=== PATIENT | male | born 1965 | race Caucasian/White ===

== ENCOUNTER → 2018-01-24 10:22 | Outpatient (CLI) | payer OTHER, SELFPAY ==
--- NOTE | 2018-01-24 10:26 | RAD_ITS ---
STUDY: X-RAY - ABDOMEN/PELVIS REASON FOR EXAM: Male, 52 years old. Abdominal pain. Hematuria. TECHNIQUE: AP supine and upright views of the abdomen and pelvis. COMPARISON: Comparison is made with prior study dated June 08, 2014. FINDINGS: Normal visualized lung bases. There is a moderate amount of colonic fecal material. There is no demonstrated free abdominal air. There is a 5.6 mm calculus in the midportion of the right kidney. There is also evidence of a 9.3 mm calculus in the lower pole calyx of the left kidney. Normal soft tissue structures. Normal visualized osseous structures. RAD/Abd Inc Decub and/or Erect IMPRESSION: Bilateral intrarenal calculi. Electronically Signed: Edy Payne MD at 10:57 EDT Tel [phone], Service support ,
--- NOTE | 2018-01-24 15:04 | EKG12_ITS ---
Test Reason : PRE OP Blood Pressure : / mmHG Vent. Rate : 075 BPM Atrial Rate : 075 BPM P-R Int : 122 ms QRS Dur : 102 ms QT Int : 370 ms P-R-T Axes : 059 050 031 degrees QTc Int : 413 ms Normal sinus rhythm with sinus arrhythmia ST abnormality, possible digitalis effect Abnormal ECG Confirmed by GISELE SCALES, OVIDIO ([id number]), editor school photograph SHERRELL MATTHEW ([id number]) on 01/28/2018 3:48:42 PM Referred By: Jeramy Matthew Confirmed By:OVIDIO JAQUEZ MD
[2018-01-24 15:19] LABS: Hematocrit 47.8 % (40-54); Hemoglobin 15.8 g/dl (13.0-16.5); Mean Corp Hgb Conc 33.1 g/gl (32-36); Mean Corpuscular Hgb 29.1 pg (27.0-32.0); Mean Platelet Vol. 11.3 fl (6.2-12.0); Platelet Count 203 K/mm3 (150-450); RBC Distribution Width CV 13.8 % (11.6-14.6); Red Blood Count 5.43 M/mm3 (4.6-6.2); White Blood Count 4.4 K/mm3 (4.4-11.0)
[2018-01-24 15:21] LABS: Scan Indicated on CBC? Y/N NO
[2018-01-24 15:47] LABS: Anion Gap 7 (5-15); BUN 14 mg/dL (7-18); BUN/Creat Ratio 17.5 RATIO (10-20); Calcium,Total 8.6 mg/dL (8.5-10.1); Chloride 108 mmol/L (98-107); EST Glomerular Filtration Rate 107 mL/min (>60); Est Glom Filt Rate - Afr Amer 130 mL/min (>60); Glucose 103 mg/dL (74-106); Potassium 3.7 mmol/L (3.5-5.1); Sodium Level 140 mmol/L (136-145)
== END ==
PROVIDERS: Family Provider Family Medicine; PCP Family Medicine; Visit Provider Family Medicine
DX: N20.1 Calculus of ureter (principal)
CPT/HCPCS: 36415; 74019; 80048; 85027; 93005

== ENCOUNTER 2018-02-15 11:55 | Day surgery (SDC) | payer OTHER, SELFPAY ==
--- NOTE | 2018-02-15 12:20 | RAD_ITS ---
STUDY: X-RAY - ABDOMEN/PELVIS REASON FOR EXAM: Male, 52 years old. Flank pain TECHNIQUE: Single AP view of the abdomen / pelvis. COMPARISON: 01/24/2018 FINDINGS: Stable calcifications overlying either renal shadow, left again measures approximately 7 mm, right 1 cm. There is an unremarkable bowel gas pattern. There is no demonstrated free abdominal air. The visualized liver, spleen and kidneys are grossly normal in size and morphology. Normal soft tissue structures. Normal visualized osseous structures. RAD/Abdomen Single View IMPRESSION: No acute findings, stable nephrolithiasis Electronically Signed: Archie Godoy MD at 13:15 EDT , Service support ,
[2018-02-15 12:41] VITALS: BP 129/77; PULSE 70; RESP 16; TEMP 36.4; O2SAT 98; BMI 21.5
[2018-02-15] MEDS: Cefazolin 2 GM in 0.9% Normal Saline 100 ML IV (13:58)
[2018-02-15 15:22] VITALS: BP 129/77; BP 137/98; PULSE 90; RESP 14; TEMP 36.1; O2SAT 93
--- NOTE | 2018-02-15 15:22 | PCM.OPRPT ---
Report of Operation Date of Procedure: 02/15/18 Pre-Operative Diagnosis: Bilateral renal calculi Post-Operative Diagnosis: Same Surgery/Procedure Performed:: Right extracorporeal shockwave lithotripsy, left extracorporeal shockwave lithotripsy Description of Surgical Findings:: 52-year-old male who has bilateral kidney stones and found on x-ray today he comes in for treatment for both of these kidney stones with shockwave lithotripsy we decided not to place a stent since the stones are fairly small and anticipating to break up really well. Procedure note patient was taken back to the operating room at the smooth induction of general anesthesia he was placed supine on the table we then started with the left kidney and located the stone in the midpole the left kidney we delivered a total of 2000 shockwaves to the stone and the stone broke up with the little tiny pieces no more visible fragments are seen at the end of treatment cycle, we then turned our attention to the right kidney found a stone in the right kidney midportion of the right kidney is about 8 mm in size delivered a total of 3000 shockwaves to the stone again the stone broke up really well and fractured really nicely after treatment cycle. After treating both the kidney stones patient anesthetic was reversed taken back to PACU in good condition plan to see him back in a few weeks with a KUB. Type of Anesthesia:: General - Admit VTE Documentation VTE Present on Admission: No VTE Mechan Device Prophylaxis: SCD's
[2018-02-15 15:30] VITALS: BP 129/77; BP 130/97; PULSE 88; RESP 16; O2SAT 94
--- NOTE | 2018-02-15 15:30 | PCM.DC.URO ---
Discharge Diet: Light diet - advance as tolerated Discharge Activity: Return to Normal Activity Allergies/Adverse Reactions: Allergies Sulfa (Sulfonamide Antibiotics) Allergy (Verified 02/11/18 14:28) Unknown Medications to take at Discharge Methylphenidate HCl [Concerta] 72 mg PO DAILY 04/16/14 Cholecalciferol (VIT D3) [Vitamin D] 1,000 unit PO DAILY 02/11/18 Hydrocodone/Acetaminophen [Imperial 5-325 Tablet] 1 ea PO Q4H PRN PRN 7 Days #20 tab 02/15/18 The following prescriptions were given: Hydrocodone/Acetaminophen [Imperial 5-325 Tablet] 1 ea PO Q4H PRN PRN 7 Days #20 tab PRN Reason: Pain Primary Care Physician: Sven Mar MD [Primary Care Provider] - Test Results: Test results from this visit will be discussed in further detail at your follow-up appointment, if applicable. Please Follow Up With: Chino Walter MD When: in 2 weeks, please call to make an appointment.
[2018-02-15 15:45] VITALS: BP 125/89; BP 129/77; PULSE 72; RESP 16; O2SAT 98
[2018-02-15 16:02] VITALS: BP 128/89; BP 129/77; PULSE 66; RESP 16; TEMP 36.4; O2SAT 96
--- NOTE | 2018-02-15 16:12 | SUR.PHASEII ---
duplicate prescription for norco destroyed. witness by Sharon WILBURN and Amie WILBURN.
[2018-02-15 16:37] VITALS: BP 129/77
== END 2018-02-15 16:42 | disposition home or self-care (01) ==
LOC: SDC 11:55 → AC 12:17
PROVIDERS: Family Provider Family Medicine; PCP Family Medicine; Visit Provider Urology
PROC: (CPT 50590; principal; 2018-02-15 13:55)
DX: N20.0 Calculus of kidney (principal); F90.9 Attention-deficit hyperactivity disorder, unspecified type; Z87.442 Personal history of urinary calculi
CPT/HCPCS: 50590; 74018; J7120; J2405

== ENCOUNTER → 2018-02-28 07:00 | Outpatient (CLI) | payer OTHER, SELFPAY ==
[2018-02-28 10:30] LABS: Anion Gap 10 (5-15); BUN 14 mg/dL (7-18); Calcium,Total 8.6 mg/dL (8.5-10.1); Chloride 106 mmol/L (98-107); Cholesterol 169 mg/dL (200); Creatinine, Serum 0.94 mg/dL (0.70-1.30); EST Glomerular Filtration Rate 90 mL/min (>60); Est Glom Filt Rate - Afr Amer 108 mL/min (>60); Glucose 92 mg/dL (74-106); High Density Lipoprotein 43 mg/dL; Potassium 3.8 mmol/L (3.5-5.1); Sodium Level 143 mmol/L (136-145); Triglycerides 36 mg/dL; Very Low Density Lipoprotein 7 mg/dL (5-40)
[2018-03-01 08:54] LABS: Vitamin D,25 Hydroxy 47.1 ng/mL (29.95-100.01)
== END ==
PROVIDERS: Family Provider Family Medicine; PCP Family Medicine; Visit Provider Family Medicine
DX: Z13.220 Encounter for screening for lipoid disorders (principal); E55.9 Vitamin D deficiency, unspecified; Z13.1 Encounter for screening for diabetes mellitus
CPT/HCPCS: 36415; 80048; 80061; 82306

== ENCOUNTER → 2018-03-05 15:01 | Outpatient (CLI) | payer OTHER, SELFPAY | PROVIDERS: Family Provider Family Medicine; PCP Family Medicine; Visit Provider Urology | DX: N20.0 Calculus of kidney (principal) | CPT/HCPCS: 74018 ==

== ENCOUNTER → 2019-06-17 16:06 | Outpatient (CLI) | payer OTHER, SELFPAY ==
--- NOTE | 2019-06-17 16:11 | RAD_ITS ---
STUDY: X-RAY - ABDOMEN/PELVIS REASON FOR EXAM: Male, 53 years old. Right-sided flank pain TECHNIQUE: Single AP view of the abdomen / pelvis. COMPARISON: 03/05/2018 FINDINGS: There is an unremarkable bowel gas pattern. There is no demonstrated free abdominal air. The visualized liver, spleen and kidneys are grossly normal in size and morphology. Multiple small right renal calculi, the largest measuring 4 mm. No ureter calculi are seen. Normal soft tissue structures. Normal visualized osseous structures. RAD/Abdomen Single View IMPRESSION: Multiple small right renal calculi, the largest measuring 4 mm. No ureter calculi are seen. Electronically Signed: Sae Lazar MD at 4:04 EST Tel , Service support ,
== END ==
PROVIDERS: Family Provider Family Medicine; PCP Family Medicine; Referring Provider Urology; Visit Provider Urology
DX: R10.9 Unspecified abdominal pain (principal)
CPT/HCPCS: 74018

== ENCOUNTER → 2020-07-06 08:03 | Outpatient (CLI) | payer OTHER, SELFPAY ==
[2020-07-06 10:16] LABS: Vitamin D,25 Hydroxy 32.5 ng/mL
[2020-07-06 10:17] LABS: Anion Gap 6 (5-15); BUN 18 mg/dL (7-18); Calcium,Total 8.9 mg/dL (8.5-10.1); Chloride 106 mmol/L (98-107); Cholesterol 201 mg/dL (200); EST Glomerular Filtration Rate 82 mL/min (>60); Est Glom Filt Rate - Afr Amer 100 mL/min (>60); Glucose 98 mg/dL (74-106); High Density Lipoprotein 53 mg/dL; PSA,Total - Annual Screen 1.99 ng/mL (0.00-4.00); Sodium Level 141 mmol/L (136-145); Triglycerides 40 mg/dL; Very Low Density Lipoprotein 8 mg/dL (5-40)
== END ==
PROVIDERS: PCP Family Medicine; Referring Provider Family Medicine; Visit Provider Family Medicine
DX: E55.9 Vitamin D deficiency, unspecified (principal); Z12.5 Encounter for screening for malignant neoplasm of prostate; Z13.220 Encounter for screening for lipoid disorders; Z13.1 Encounter for screening for diabetes mellitus
CPT/HCPCS: 36415; 80048; 80061; 82306; 84153; G0103

== ENCOUNTER → 2021-03-29 19:00 | Outpatient (CLI) | payer OTHER, SELFPAY ==
[2021-03-31 20:08] LABS: Covid Inpatient test code BILL Performed (.)
== END ==
PROVIDERS: PCP Family Medicine; Visit Provider Family Medicine
DX: U07.1 COVID-19 (principal)
CPT/HCPCS: 87635; U0005; U0003

== ENCOUNTER → 2021-06-01 07:19 | Outpatient (CLI) | payer OTHER, SELFPAY ==
[2021-06-01 10:46] LABS: Vitamin D,25 Hydroxy 40.3 ng/mL
[2021-06-01 11:06] LABS: Anion Gap 6 (5-15); BUN 16 mg/dL (7-18); BUN/Creat Ratio 16.2 RATIO (10-20); Calcium,Total 8.6 mg/dL (8.5-10.1); Chloride 109 mmol/L (98-107); Cholesterol 181 mg/dL (200); Creatinine, Serum 0.99 mg/dL (0.70-1.30); EST Glomerular Filtration Rate 83 mL/min (>60); Est Glom Filt Rate - Afr Amer 101 mL/min (>60); Glucose 98 mg/dL (74-106); High Density Lipoprotein 44 mg/dL; Sodium Level 140 mmol/L (136-145); Triglycerides 52 mg/dL; Very Low Density Lipoprotein 10 mg/dL (5-40)
== END ==
PROVIDERS: PCP Family Medicine; Referring Provider Family Medicine; Visit Provider Family Medicine
DX: Z13.1 Encounter for screening for diabetes mellitus (principal); E55.9 Vitamin D deficiency, unspecified; Z13.220 Encounter for screening for lipoid disorders
CPT/HCPCS: 36415; 80048; 80061; 82306; 84153; G0103

== ENCOUNTER 2021-11-09 07:02 | Inpatient (IN) | payer OTHER, SELFPAY ==
--- NOTE | 2021-11-04 15:12 | EKG12_ITS ---
Test Reason : PREOP Blood Pressure : / mmHG Vent. Rate : 094 BPM Atrial Rate : 094 BPM P-R Int : 124 ms QRS Dur : 088 ms QT Int : 342 ms P-R-T Axes : 057 034 036 degrees QTc Int : 427 ms Normal sinus rhythm Nonspecific ST abnormality Abnormal ECG Confirmed by KACIE SCALES, KAMRAN ([id number]), primer expeditor and drier MATT TOLBERT ([id number]) on 11/07/2021 1:44:56 PM Referred By: YOLANDA Confirmed By:ALYSSA HESTER MD
[2021-11-09] VITALS (10 sets, daily range): BP systolic 105–131; BP diastolic 63–85; PULSE 70–100; RESP 12–16; TEMP 36.2–36.9; O2SAT 93–99; BMI 22.9
--- NOTE | 2021-11-09 07:34 | HP.PCM_ITS ---
History and Physical Date of Admission: 11/09/21 Intake Vital Signs 11/01/21 12:48 Height 5 ft 8 in Weight: 156 lb BMI 23.7 BP 129/87 H Blood Pressure Location Rt brachial Position Sitting Respiration 18 Pulse 64 Pulse Source NIBP Temp 97.6 F L Temp Source Temporal Pulse Oximetry (%) 99 Oxygen Delivery Method room air Intake Visit Reasons: Discuss Surgical Procedure C-Scope? Chief Complaint: discuss colectomy Market Research Associate Required: No Is patient in pain?: No Allergies Sulfa (Sulfonamide Antibiotics) Allergy (Verified 11/01/21 12:50) Unknown Medications methylphenidate HCl [Concerta] 72 mg PO DAILY 04/16/14 [History Confirmed 11/01/21] cholecalciferol (vitamin D3) [Vitamin D] 1,000 unit PO DAILY 02/11/18 [History Confirmed 11/01/21] bupropion HCl 150 mg 24 hr tablet, extended release 150 mg PO tab 11/01/21 [History Confirmed 11/01/21] metronidazole 500 mg tablet 500 mg PO .COMPLEX #3 tab 11/01/21 [Rx Confirmed 11/01/21] neomycin 500 mg tablet 1 g PO .COMPLEX #6 tab 11/01/21 [Rx Confirmed 11/01/21] PFSH Medical History (Updated 11/03/21 @ 09:[address] Everett Jason MD) Anxiety Colon polyp Depression Hemorrhoids Stone, kidney Surgical History S/P appendectomy S/P tonsillectomy Family History Mother Diabetes Cancer skin Father Diabetes Thyroid disorder Social History Smoking Status: Never smoker alcohol intake: current HPI HPI HPI: MICHELA ZEPEDA, is a 56 M who presents to the office today for large polyp and need for colectomy. Patient had a large polyp removed during colonoscopy in the ascending colon which was found to be a tubular adenoma with high-grade dysplasia. It was very large and unable to be removed completely and the area was ablated but this is the second time this area is growing a large polyp and he was sent for right hemicolectomy. ROS General General: No weight change, appetite, fatigue, colon cancer, breast cancer or weakness HEENT HEENT: No difficulty swallowing, eye injury, eye surgery, swollen glands or hoarseness Endo Endocrine: No thyroid disease, diabetes mellitus, thyroid cancer, Hair loss, heat intolerance or cold intolerance Skin Skin: No rash or changing moles Breast Breast: No left breast lump, right breast lump, nipple discharge, breast pain, abnormal mammogram, abnormal US or breast enlargement Musc Musculoskeletal: No back problems, arthritis, rheumatoid arthritis, gout or joint pain Cardio Cardiovascular: No murmur, pacemaker, heart disease, atrial fibrillation, high blood pressure, heart attack, heart stent, palpitations, shortness of breat with exertion or chest pain Psych Psychiatric: Yes depression and anxiety; No hearing voices Resp Respiratory: No shortness of breath, No sleep apnea, No cough, No COPD, No asthma, No emphysema and No wheezing Gastro Gastrointestinal: No abdominal pain, No nausea or vomiting, No diarrhea, No constipation, No blood in stool, No acid reflux, Yes hemorrhoids, No ulcers, No gallbladder problem and No black,tarry stools Hernán Hematologic: No blood thinners, No blood disorders, No bleeding, No anemia and No blood clots Neuro Neurologic: No system reviewed and no additional complaints, except as documented, No as per HPI, No abnormal gait, No abnormal hearing, No abnormal movements, No abnormal speech, No behavioral changes, No burning sensations, No confusion, No convulsions, No disequilibrium, No dizziness, No localized weakness, No frequent falls, No headache(s), No lack of coordination, No loss of vision, No memory loss, No numbness, No other visual disturbances, No radicular pain, No restless legs, No sensory deficit, No syncope, No tingling, No tremor(s), No weakness and No other Exam Const General: cooperative Orientation: alert and oriented x3 HENMT Head: normal to inspection Neck Neck: normal visual inspection and full ROM Chest Chest palpation & inspection: normal inspection of the chest Resp Effort & Inspection: normal respiratory effort Auscultation: clear to auscultation bilaterally Cardio Rate: regular rate Rhythm: regular rhythm GI Inspection: non-distended Palpation: soft and nontender Skin General: no rashes or lesions noted Neuro General: patient alert and patient oriented x3 Extrem General: full ROM Psych Appearance: grossly normal Mental Status: mental status grossly normal Assessment and Plan Assessment and Plan (1) High grade dysplasia in colonic adenoma: Status: Acute Plan - Dr. Everett Jason MD: Patient had a large ascending colon polyp with high-grade dysplasia. This was piecemeal removed and ablated but he was sent for right hemicolectomy as this is the second time this has recurred in the same area of colon. Patient is agreeable to right hemicolectomy. I discussed laparoscopic right hemicolectomy in detail with the patient. I discussed the risks including but not limited to bleeding, infection, anastomotic leak, injury to surrounding organs. I discussed possible injury to bladder or ureter. Patient understands the risks and is willing to proceed. Everett Jason MD Pager: [facility] [address] [place] [address] [address] [place] [address] Office: I have re-examined the patient. There are no clinical changes since date of exam.
[2021-11-09] MEDS: Gabapentin 600 MG Tablet PO (07:45)
[2021-11-09] MEDS: Acetaminophen 500 MG Tablet 1000 MG PO ×3 (07:45→23:26)
[2021-11-09] MEDS: Lactated Ringers 1,000 ML 40 ML IV ×2 (07:47→17:07)
[2021-11-09 08:10] LABS: Bedside Glucose 170 mg/dL (74-106)
--- NOTE | 2021-11-09 09:35 | COL._PTH ---
PATIENT: MICHELA ZEPEDA LOC: MS3 U#:[id number] AGE/SX: 56/M ROOM: NV312 RE11/09/[address]: Dr. Everett Jason MD : [id number] BED: 1 DIS: 11/11/2021 SPEC #: [id number] RECD: 11/09/21 13:50 STATUS: AIDA DUPREE #: [id number] NONI: 11/09/21 09:[address]: Everett Jason DEPT: SURGICAL PATHOLOGY RECD BY: Soraya Sommer ENTERED: 11/10/21 08:27 SP TYPE: COLON OTHR DR: Dr. 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 Diverticulosis. 26 benign lymph nodes with reactive changes. See comment. SJ:rg 11/14/2021 COMMENT High-grade dysplasia is not identified. Intermediate sized segment consists of small bowel and smallest segment consists of large bowel. MICROSCOPIC DESCRIPTION Slides are reviewed. GROSS DESCRIPTION Received in fixative is one container labeled with the patient's name and designated right colon. The specimen consists of three segments of bowel. The smallest segment measures 4 cm in length. The second largest segment measures 11 cm in length. The largest segment consists of right hemicolectomy specimen. The segment of large bowel measures 19 cm and segment of attached terminal ileum measures 6 cm. An appendix is not present. Located 4 cm distal to the ileocecal valve are shallow mucosal ulcers ranging in size from 0.5 to 1 cm. No mass lesion is identified in the small bowel, ileocecal valve or cecum. Located approximately 12 cm distal to the ileocecal valve are similar shallow ulcers ranging in size from 0.3 to 0.8 cm. The remainder of the bowel mucosa is thrown into normal folds. No mass lesions are identified. Serial sections reveal multiple diverticula, none of which appear to have perforated through the bowel. The mucosal surfaces and the other two smaller segments of bowel are grossly unremarkable with no mass lesions. The attached fibrofatty tissue contains a number of grossly unremarkable nodule resembling lymph nodes. Rehanger sections are submitted as follows: 1??automobile rental representative portion of smallest segment of bowel, 2 & 3 - automobile rental representative sections from second largest segment of bowel, 4 - proximal and distal mucosal margin from largest segment of bowel, 5?&?6??shallow mucosal ulcer from cecum, 7 - shallow mucosal ulcers distal to cecum, 8 & 9 - diverticula, 10-15 - lymph nodes (10-14 - each cassette containing multiple lymph nodes, 15 - one bisected lymph node). / AM:pilo 11/11/2021 TC:1 CPT: 78595
[2021-11-09] MEDS: BUPIVACAINE LIPOSOME/PF 20 ML VIAL OPERA.SITE (12:49)
--- NOTE | 2021-11-09 13:22 | PCM.OPRPT ---
Problems Associated Problem List Diagnoses (1) High grade dysplasia in colonic adenoma: Report of Operation Date of Procedure: 11/09/21 Pre-Operative Diagnosis: Colon polyp of the cecum with high-grade dysplasia Post-Operative Diagnosis: Same Surgery/Procedure Performed:: Laparoscopic right hemicolectomy with ileocolic anastomosis Specimen's removed: Right hemicolon Description of Procedure: Patient was brought back the operating room and general anesthesia was induced. The abdomen was prepped and draped in usual sterile fashion. A midline incision was made superior to the umbilicus and deepened to the fascia which was elevated and incised. Port was placed into the abdomen and it was insufflated 15 mmHg. Under direct visualization a 5 mm port was placed in the left lower quadrant and left upper quadrant. Next under direct visualization a TAP block was performed bilaterally. There were very numerous dense adhesions in the right lower quadrant and pelvis containing most of the small bowel. These were taken down sharply and it took a very long time to divide all of the adhesions in the pelvis. Next the colon was medialized and the lateral attachments were taken down using Enseal. Once the colon was mobile and of small bowel was mobilized the incision was lengthened in the upper midline. A wound protector was placed. The small bowel and cecum were delivered into the incision. The hepatic flexure was then taken down using Enseal. Next an area of transverse colon was selected and divided using ESCOBAR stapler. Enseal was used to take down the mesentery until the right colon pedicle was identified. The right colic artery was then suture-ligated as well as the ileocolic artery. Next the small bowel was divided using ESCOBAR stapler and the specimen was sent for pathology. There was a small defect in the mesentery so an additional small segment of small bowel was removed. Next using a ESCOBAR stapler and ileocolic anastomosis was formed in a [id number] functional end-to-end fashion. Next the stapler was removed and a TX 60 stapler was used to close the common enterotomy. A crotch suture of 3-0 silk was placed and then the anastomosis was inspected once more. There is good hemostasis at the pedicle and at the anastomosis. This was returned to the abdomen and the abdomen was irrigated and suctioned dry. The wound protector was removed. Gown gloves and all staff were changed. Next the fascia was closed with running #1 PDS from the top and bottom meeting in the middle. The skin was injected with local anesthetic and closed with 4-0 Monocryl. The small port incisions were also injected with local anesthetic and closed with 4-0 Monocryl. Bandages and Steri-Strips were applied. Patient was then awoken and taken to PACU in stable condition. Admit VTE Documentation VTE Mechan Device Prophylaxis: SCD's
[2021-11-09] MEDS: Docusate Sodium 100 MG Capsule PO (22:21)
[2021-11-10 02:41] VITALS: BP 109/66; PULSE 90; RESP 18; TEMP 37.2; O2SAT 100
[2021-11-10 05:22] LABS: Hematocrit 43.3 % (40-54); Hemoglobin 14.3 g/dL (13.0-16.5); Mean Corpuscular Hgb 29.4 pg (27.0-32.0); Mean Corpuscular Volume 89.1 fL (80-94); Mean Platelet Vol. 11.1 fl (6.2-12.0); Platelet Count 183 K/mm3 (150-450); RBC Distribution Width CV 13.2 % (11.6-14.6); RBC Distribution Width SD 43.2 fl (35.1-43.9); Red Blood Count 4.86 M/mm3 (4.6-6.2); White Blood Count 9.3 K/mm3 (4.4-11.0)
[2021-11-10 05:35] VITALS: BP 108/62; PULSE 73; RESP 16; TEMP 37.2; O2SAT 94
[2021-11-10] MEDS: Acetaminophen 500 MG Tablet 1000 MG PO ×4 (05:37→23:04)
[2021-11-10 05:38] LABS: Anion Gap 4 (5-15); BUN 12 mg/dL (7-18); BUN/Creat Ratio 12.7 RATIO (10-20); Calcium,Total 7.7 mg/dL (8.5-10.1); Chloride 107 mmol/L (98-107); Creatinine, Serum 0.94 mg/dL (0.70-1.30); EST Glomerular Filtration Rate 87 mL/min (>60); Est Glom Filt Rate - Afr Amer 106 mL/min (>60); Estimated Creatinine Clearance 83.88 ml/min; Glucose 124 mg/dL (74-106); Potassium 4.6 mmol/L (3.5-5.1); Sodium Level 138 mmol/L (136-145)
[2021-11-10 07:24] VITALS: O2SAT 92
--- NOTE | 2021-11-10 07:32 | PCM.PN.SRG ---
Subjective Subjective Patient is not reporting any flatus yet. He is not having any nausea or vomiting. Abdominal pain is well controlled. Objective Data Objective Data Vital Signs: Vital Signs Temp Pulse Resp BP Pulse Ox 99 F 73 16 108/62 94 11/10/21 05:35 11/10/21 05:35 11/10/21 05:35 11/10/21 05:35 11/10/21 05:35 Oxygen Flow Rate (L/min) 2 Oxygen Delivery Method Room Air Weight: 151 lb Body Mass Index (BMI) 22.9 Intake & Output: Intake and Output for Last 24 Hours 11/08/21 11/09/21 11/10/21 23:59 23:59 23:59 Intake Total 1752.67 / 1752.67 100 / 100 Output Total 250 / 250 400 / 400 Balance 1502.67 / 1502.67 -300 / -300 Lab / Micro Data Result Diagrams: 11/10/21 05:14 11/10/21 05:14 Labs: Laboratory Results - last 24 hr 11/09/21 07:57: POC Glucose 170 H 11/10/21 05:14: WBC 9.3, RBC 4.86, Hgb 14.3, Hct 43.3, MCV 89.1, MCH 29.4, MCHC 33.0, RDW Std Deviation 43.2, RDW Coeff of Denzel 13.2, Plt Count 183, MPV 11.1 11/10/21 05:14: Sodium 138, Potassium 4.6, Chloride 107, Carbon Dioxide 27.0, Anion Gap 4 L, BUN 12, Creatinine 0.94, Estim Creat Clear Calc 83.88, Est GFR (MDRD) Af Amer 106, Est GFR (MDRD) Non-Af 87, BUN/Creatinine Ratio 12.7, Glucose 124 H, Calcium 7.7 L Physical Exam Const oriented x3 and no apparent distress Resp normal respiratory effort GI soft to palpation and non-tender Assessment & Plan Assessment/Plan (1) High grade dysplasia in colonic adenoma: PLAN: Patient doing well after right hemicolectomy. There is more extensive lysis of adhesions than expected so I kept him n.p.o. yesterday. I will start some clear liquids today but hold on advancing his diet until he is passing flatus. Everett Jason MD Pager: [facility] [address] [place] [address], [address] [place] [address] Office:
[2021-11-10] MEDS: Enoxaparin 40 MG/0.4 ML Syringe SC (08:09)
[2021-11-10] MEDS: Docusate Sodium 100 MG Capsule PO ×2 (08:09→21:06)
[2021-11-10] MEDS: buPROPion (XL) 150 MG TABLET.XL PO (08:10)
[2021-11-10] MEDS: Ketorolac 15 MG/ML Vial IV (08:14)
[2021-11-10 08:20] VITALS: BP 111/65; PULSE 66; RESP 16; TEMP 36.6; O2SAT 94
--- NOTE | 2021-11-10 10:25 | CASEMGMT ---
RN JOSE M Face to Face with patient for initial transition planning/care coordination assessment. RN CM introduced self and role at [facility]. Patient sitting in chair, alert and oriented. Patient willing to participate in assessment and is able to answer all questions appropriately. Care providers, pharmacy, and demographics verified. Patient wishes to discharge home, denies need for home health at this time. Patient states he has no further needs or concerns at this time. CM to follow for discharge planning needs that may arise. PCP: Zaid Specialists: none Preferred Pharmacy: [facility] retail Insurance: MMO Prescription Benefit: yes Living Will/HPOA: none LNOK: father Living Arrangements: Patient lives alone in a 2 story home. Patient states he is independent and able to ambulate stairs. Transportation: self, father DME/HHC: Patient denies DME or previous HHC. Disposition Plan: Patient to discharge home with family support and follow-up plans in place. Shereen CADENA, RN, CM
[2021-11-10] MEDS: Ensure Clear 120 ML Liquid PO (15:00)
[2021-11-10 15:05] VITALS: BP 122/68; PULSE 89; RESP 16; TEMP 36.7; O2SAT 95
[2021-11-10 20:32] VITALS: BP 123/87; PULSE 74; RESP 16; TEMP 36.9; O2SAT 95
[2021-11-10] MEDS: Ondansetron ODT 4 MG Tablet PO (21:05)
[2021-11-11 02:20] VITALS: BP 144/78; PULSE 80; RESP 16; TEMP 37; O2SAT 95
[2021-11-11] MEDS: Acetaminophen 500 MG Tablet 1000 MG PO (05:29)
[2021-11-11 07:12] VITALS: O2SAT 92
[2021-11-11 08:20] VITALS: BP 131/84; PULSE 75; RESP 14; TEMP 36.7; O2SAT 94
[2021-11-11] MEDS: Docusate Sodium 100 MG Capsule PO (09:41)
[2021-11-11] MEDS: Enoxaparin 40 MG/0.4 ML Syringe SC (09:41)
[2021-11-11] MEDS: buPROPion (XL) 150 MG TABLET.XL PO (09:41)
--- NOTE | 2021-11-11 10:59 | PCM.PN.SRG ---
Subjective Subjective Patient is doing well. He reports passing flatus and having a bowel movement. No nausea or vomiting and he did tolerate clears. Objective Data Objective Data Vital Signs: Vital Signs Temp Pulse Resp BP Pulse Ox 98.0 F 75 14 131/84 H 94 11/11/21 08:20 11/11/21 08:20 11/11/21 08:20 11/11/21 08:20 11/11/21 08:20 Oxygen Flow Rate (L/min) 2 Oxygen Delivery Method Room Air Weight: 150 lb 15.984 oz Body Mass Index (BMI) 22.9 Intake & Output: Intake and Output for Last 24 Hours 11/09/21 11/10/21 11/11/21 23:59 23:59 23:59 Intake Total 1752.67 / 1752.67 2174 / 2174 Output Total 250 / 250 1999 / 1999 Balance 1502.67 / 1502.67 174 / 174 Lab / Micro Data Result Diagrams: 11/10/21 05:14 11/10/21 05:14 Physical Exam Const no apparent distress Resp normal respiratory effort Cardio regular rate GI soft to palpation and non-tender Assessment & Plan Assessment/Plan (1) High grade dysplasia in colonic adenoma: PLAN: Advance diet and discharge later today.
--- NOTE | 2021-11-11 11:00 | PCM.DC.SUM ---
Providers Date of Admission: 11/09/21 Primary Care Physician: Dr. Sven Mar MD Reason For Visit: ERAS, RT LAP CHERYLE COLECTOMY Diagnosis Discharge Diagnosis (1) High grade dysplasia in colonic adenoma: Status: Acute Code(s): D12.6 - Benign neoplasm of colon, unspecified Medications at Discharge Home Medications methylphenidate HCl [Concerta] 72 mg PO DAILY 04/16/14 cholecalciferol (vitamin D3) [Vitamin D3] 1,000 unit PO DAILY 02/11/18 bupropion HCl 150 mg 24 hr tablet, extended release 150 mg PO DAILY tab 11/01/21 acetaminophen 650 mg PO Q6 PRN #0 tab 11/11/21 ibuprofen 600 mg PO Q6H PRN PRN #0 tab 11/11/21 Hospital Course Operations colectomy Procedures None Summary of Care Provided Hospital Course: Patient was admitted following elective right hemicolectomy for dysplastic colon polyp. The first postoperative day the patient was started on a clear liquid diet and was not passing flatus. The second postoperative day started passed flatus and he was advanced on his diet and then discharged home in stable condition. Weight / BMI Weight Weight: 150 lb 15.984 oz Body Mass Index (BMI) 22.9 ABG / Lab / Microbiology Data Result Diagrams: 11/10/21 05:14 11/10/21 05:14 D/C Instructions Discharge Diet: Light diet - advance as tolerated Discharge Activity: May Drive and May Shower Lifting Restrictions: 10 pounds for 4 weeks Call your doctor if your incision/area has: Continuous Slow Oozing, Sudden Increased Bleeding, Increased Pain/ Swelling, Increased Redness, Foul Smelling Discharge and Swelling at the incision site Call your doctor if you observe: Fever of 101 or Higher Suture Line Care: Avoid Pulling/Pushing and Avoid Pinching/Bending Cleanse incision/area with: Soap & Water Additional Dressing/Incision Instructions: Remove Steri-Strips in 7-10 days once they start peeling off. Please Follow Up With: Everett Jason MD When: Please call to schedule 2 week follow up appointment. [phone] Meaningful Use Info Meaningful Use Diagnoses (Choose all that apply): None applicable Discharge Plan Admission Admit Date/Time: 11/09/21 07:02 Attending Provider: Everett Jason Primary Care Provider: Sven Mar Discharge Orders/Prescriptions Prescriptions: New acetaminophen 500 mg Tablet 650 mg PO Q6 PRN (Reason: Abdominal Pain) Qty: 0 RF: 0 ibuprofen 600 mg Tablet 600 mg PO Q6H PRN PRN (Reason: Pain Score 4-10) Qty: 0 RF: 0 Continued bupropion HCl 150 mg tablet extended release 24 hr 150 mg PO DAILY RF: 0 methylphenidate HCl [Concerta] 36 MG tablet extended release 24hr 72 mg PO DAILY RF: 0 cholecalciferol (vitamin D3) [Vitamin D3] 1,000 UNIT tablet 1,000 unit PO DAILY RF: 0 Discontinued metronidazole 500 mg tablet 500 mg PO .COMPLEX RF: 0 neomycin 500 mg tablet 1 g PO .COMPLEX RF: 0 Referrals / Follow Up: Sven Mar MD [Primary Care Provider] - Disposition Disposition (needs filled in before D/C Order can be placed): Home, Self Care
== END 2021-11-11 12:19 | disposition home or self-care (01) | DRG 331 ==
LOC: ACINP 08:55 → MS3 13:15
PROVIDERS: Anesthesiology; Admitting Provider Surgery; PCP Family Medicine; Referring Provider Surgery; Visit Provider Surgery
PROC: 0DTF4ZZ Resection of Right Large Intestine, Percutaneous Endoscopic Approach (ICD-10-PCS; CPT 44205; principal; 2021-11-09 09:15)
DX: D12.6 Benign neoplasm of colon, unspecified (principal); F32.A Depression, unspecified; F41.9 Anxiety disorder, unspecified; Z87.442 Personal history of urinary calculi; Z86.010 Personal history of colon polyps; F90.9 Attention-deficit hyperactivity disorder, unspecified type
CPT/HCPCS: 36415; 80048; 82962; 83735; 85027; 88307; 88309; 93005; J7120; C1760; J2405

== ENCOUNTER 2021-11-15 20:14 | Inpatient (IN) | payer OTHER, SELFPAY ==
[2021-11-15 20:15] VITALS: BP 123/93; PULSE 81; RESP 16; TEMP 35.7; O2SAT 97; BMI 23.7
--- NOTE | 2021-11-15 20:36 | EDS_ITS ---
HPI History of Present Illness Chief Complaint: General Illness Detail of Chief Complaint: Nausea and generalized weakness and diaphoresis Informant: patient Narrative Narrative: Patient presents to the emergency department stating he did not feel well after waking up from his nap today. Patient developed nausea and dry heaves as well as becoming quite sweaty and feeling weak. Patient tells me that he had right colectomy done last week at this hospital. Patient had a polyp and he got his pathology back and was told that everything looked good. Patient had some right-sided abdominal pain on the way to the hospital. He denies any fevers. He denies urinary symptoms. He is passing stools that are watery and black in color. Patient is passing gas. Prior similar symptoms: No PFSH PFSH Medical History (Updated 11/15/21 @ 23:[address] Florecita Gomez DO) ADHD Anxiety Colon polyp COVID Depression Hemorrhoids Non-smoker Stone, kidney Home Medications methylphenidate HCl [Concerta] 72 mg PO DAILY 04/16/14 [History Last Taken Unknown] cholecalciferol (vitamin D3) [Vitamin D3] 1,000 unit PO DAILY 02/11/18 [History Last Taken Unknown] bupropion HCl 150 mg 24 hr tablet, extended release 150 mg PO DAILY tab 11/01/21 [History Last Taken Unknown] acetaminophen 650 mg PO Q6 PRN #0 tab 11/11/21 [Rx Last Taken Unknown] ibuprofen 600 mg PO Q6H PRN PRN #0 tab 11/11/21 [Rx Last Taken Unknown] Allergy/AdvReac Type Severity Reaction Status Date / Time Sulfa (Sulfonamide Allergy Unknown Verified 11/15/21 20:20 Antibiotics) Family History Mother Diabetes Cancer skin Father Diabetes Thyroid disorder Surgical History (Updated 11/15/21 @ 20:42 by Amanda Llamas) H/O right hemicolectomy History of colonoscopy History of lithotripsy S/P appendectomy S/P tonsillectomy Social History Smoking Status: Never smoker alcohol intake: current ROS ROS ED ROS Narrative Diaphoresis Constitutional Constitutional ED: Reports systems reviewed and no addt'l complaints, except as documented; Denies body ache(s), change in weight or chills Eyes Eyes: Denies acute decrease in peripheral vision, change in vision, double vision or loss of vision ENT ENT ED: Reports none; Denies ear pain, lip swelling, loss taste/smell, neck pain, otalgia or sore throat Cardiovascular Cardiovascular: Reports none; Denies abdominal pain, chest pain with activity, leg edema, lightheadedness, palpitations, rapid heart rate or syncope Respiratory/Chest Respiratory/Chest: Reports none; Denies change in mental status, dry cough, dyspnea, hemoptysis, shortness of breath at rest or shortness of breath with exertion Gastrointestinal Gastrointestinal: Reports none, abdominal pain and nausea; Denies change in stool character, diarrhea, hematemesis, hematochezia, melena, rectal bleeding or vomiting Genitourinary Genitourinary ED: Reports none; Denies abdominal discomfort, anuria, dysuria, genital pain or polyuria Musculoskeletal Musculoskeletal: Reports none; Denies arthralgias, back pain, difficulty walking, extremity pain, muscle weakness or myalgias Integumentary Reports none; Denies abscess or rash Neurologic Neurologic: Reports none; Denies abnormal gait, confusion, focal weakness, frequent falls, headache(s), loss of vision, numbness, paresthesias, radicular pain, vertigo or weakness Psychiatric Psychiatric: Reports systems reviewed and no addt'l complaints, except as documented and none; Denies behavioral changes, confusion, difficulty concentrating, hallucinations, suicidal ideation, tactile hallucinations or visual hallucinations Endocrine Endocrinology: Denies none, cold intolerance, excessive sweating, fatigue or heat intolerance Hematologic/Lymphatic Hematologic/Lymphatic: Reports none; Denies anemia, easy bleeding or easy bruising Allergic/Immunologic Allergic/Immunologic ED: Denies as per HPI, none, lip swelling, mouth swelling, throat swelling, tongue swelling or hives EXAM Physical Exam Const Vital Signs: 11/15/21 20:15 11/15/21 20:33 11/15/21 22:15 Temperature 96.3 F L Temperature Source Temporal Pulse Rate 81 72 Respiratory Rate 16 Respiratory Effort Normal Non-Labored Respiratory Pattern Normal Blood Pressure 123/93 H 138/67 H Blood Pressure Mean 103 90 Pulse Ox 97 96 Oxygen Delivery Method Room Air Room Air Positive well nourished and well developed General Appearance ED: well developed and NAD HEENT Reports TM's clear and moist mucous membranes normocephalic and atraumatic; Negative for trauma or tenderness Tympanic Membrane ED: Yes TM's clear Eyes PERRL and EOMs intact bilaterally General Eye ED: Negative for pale conjunctiva or scleral icterus Neck no lymphadenopathy, supple and no JVD General: Negative for tenderness Chest Wall inspection of chest normal and palpation of chest normal Chest: Negative for tenderness Resp normal respiratory effort and clear to auscultation bilaterally Effort and Inspection: Negative for respiratory distress or pain with movement Auscultation: Negative for rhonchi, wheezes or diminished lung sounds Cardio regular rate, regular rhythm, S1 normal heart sound, S2 normal heart sound and no murmurs Peripheral Pulses: pulses 2+ throughout GI normal to inspection, nondistended, normoactive bowel sounds, soft to palpation, non-tender, non-distended and no masses GI Narrative: Patient with mild tenderness over right lower quadrant. Patient does have ecchymosis and bruising to the abdomen with a well-healing incision in the midline. No cellulitic changes noted. No purulent drainage from the wound noted. Back/Spine no CVA tenderness and no thoracic nor lumbar tenderness Extremity normal to inspection General Extremety ED: Negative for edema General Extremity: Negative for edema Neuro oriented x3, CN's II-XII intact bilaterally, no sensory deficits noted and gait normal Sensorium / Orientation: awake, alert, oriented to person, oriented to place and oriented to time Motor Exam: strength 5/5 throughout and strength abnormal Psych mental status grossly normal Skin no rashes or lesions noted and no wounds MDM MDM MDM Narrative Medical decision making narrative: IV line established on arrival. Patient was given normal saline. He was given Zofran. Lab work-up significant for an elevated lactate of 2.3. His white blood cell count was normal. Chemistries were unremarkable. CT scan of the abdomen pelvis ordered and on my interpretation it appears that patient has a bowel obstruction however I am unable to tell where the transition point is. Official report from radiology is pending. I did discuss case with general surgeon on-call Dr. Olmstead who will present to the emergency department to evaluate patient. Lab Data Attestation: I reviewed the patient's lab results. Labs: Laboratory Results - last 24 hr 11/15/21 11/15/21 11/15/21 21:20 21:20 21:20 WBC 10.8 RBC 5.79 Hgb 17.1 H Hct 50.2 MCV 86.7 MCH 29.5 MCHC 34.1 RDW Std Deviation 42.3 RDW Coeff of Denzel 13.5 Plt Count 310 MPV 10.9 Immature Gran % (Auto) 0.400 Neut % (Auto) 71.1 H Lymph % (Auto) 19.8 [place] % (Auto) 7.0 Eos % (Auto) 1.3 Baso % (Auto) 0.4 Absolute Neuts (auto) 7.7 Absolute Lymphs (auto) 2.14 Nucleated RBC % 0 Sodium 138 Potassium 3.9 Chloride 104 Carbon Dioxide 28.0 Anion Gap 6 BUN 19 H Creatinine 1.04 Estim Creat Clear Calc 75.82 Est GFR (MDRD) Af Amer 95 Est GFR (MDRD) Non-Af 78 BUN/Creatinine Ratio 18.3 Glucose 131 H Lactic Acid 2.3 H* Calcium 9.8 Total Bilirubin 0.50 AST 20 ALT 48 Alkaline Phosphatase 78 Troponin I High Sens < 3 L Total Protein 7.9 Albumin 3.7 Globulin 4.2 Albumin/Globulin Ratio 0.9 Urine Color Urine Clarity Urine pH Ur Specific [place] Urine Protein Urine Glucose (UA) Urine Ketones Urine Occult Blood Urine Nitrite Urine Bilirubin Urine Urobilinogen Ur Leukocyte Esterase Urine RBC Urine WBC Ur Squamous Epith Cells Calcium Oxalate Crystal Urine Bacteria Urine Mucus 11/15/21 22:35 WBC RBC Hgb Hct MCV MCH MCHC RDW Std Deviation RDW Coeff of Denzel Plt Count MPV Immature Gran % (Auto) Neut % (Auto) Lymph % (Auto) [place] % (Auto) Eos % (Auto) Baso % (Auto) Absolute Neuts (auto) Absolute Lymphs (auto) Nucleated RBC % Sodium Potassium Chloride Carbon Dioxide Anion Gap BUN Creatinine Estim Creat Clear Calc Est GFR (MDRD) Af Amer Est GFR (MDRD) Non-Af BUN/Creatinine Ratio Glucose Lactic Acid Calcium Total Bilirubin AST ALT Alkaline Phosphatase Troponin I High Sens Total Protein Albumin Globulin Albumin/Globulin Ratio Urine Color Yellow Urine Clarity Clear Urine pH 5.0 Ur Specific [place] 1.030 Urine Protein 30 H Urine Glucose (UA) Normal Urine Ketones 5 H Urine Occult Blood 25 H Urine Nitrite Negative Urine Bilirubin Negative Urine Urobilinogen 1 H Ur Leukocyte Esterase 25 H Urine RBC 0-5 SEEN Urine WBC 0-5 SEEN Ur Squamous Epith Cells 0 SEEN Calcium Oxalate Crystal 1+ Urine Bacteria 1+ Urine Mucus 0 SEEN Discharge Plan Triage Chief Complaint: General Illness ED Provider: Florecita Gomez Dx/Rx/DC Orders Clinical Impression: Small bowel obstruction, Acidosis, lactic Prescriptions: No Action bupropion HCl 150 mg tablet extended release 24 hr 150 mg PO DAILY RF: 0 methylphenidate HCl [Concerta] 36 MG tablet extended release 24hr 72 mg PO DAILY RF: 0 cholecalciferol (vitamin D3) [Vitamin D3] 1,000 UNIT tablet 1,000 unit PO DAILY RF: 0 acetaminophen 500 mg Tablet 650 mg PO Q6 PRN (Reason: Abdominal Pain) Qty: 0 RF: 0 ibuprofen 600 mg Tablet 600 mg PO Q6H PRN PRN (Reason: Pain Score 4-10) Qty: 0 RF: 0 Primary Care Provider: Sven Mar Referrals: Sven Mar MD [Primary Care Provider] - Disposition Disposition: Acute Care [facility]
--- NOTE | 2021-11-15 20:44 | EKG12_ITS ---
Test Reason : DYSRHYTHMIA Blood Pressure : / mmHG Vent. Rate : 073 BPM Atrial Rate : 073 BPM P-R Int : 126 ms QRS Dur : 104 ms QT Int : 378 ms P-R-T Axes : 057 053 048 degrees QTc Int : 416 ms Normal sinus rhythm Nonspecific ST abnormality Abnormal ECG Confirmed by BRIANNE SCALES, JR ([id number]), index editor MATT TOLBERT ([id number]) on 11/18/2021 10:21:07 AM Referred By: MARIAELENA Confirmed By:JR DECKER MD
--- NOTE | 2021-11-15 20:45 | CT_ITS ---
STUDY: CT ABDOMEN AND PELVIS WITH CONTRAST REASON FOR EXAM: Male, 56 years old. Abdominal pain -- IV PO Contrast RADIATION DOSAGE (If Supplied By Facility): CTDIvol = ( 9.57 ) mGy, DLP = ( 864.65 ) mGycm TECHNIQUE: Transaxial images were obtained from the dome of the diaphragm to the symphysis pubis without oral contrast. Oral and amp; IV Gastrografin and amp; 100mL Isovue-300 was administered. Sagittal and coronal images were reconstructed. Individualized dose optimization techniques were used for this CT. COMPARISON: None. FINDINGS: The visualized lung bases demonstrate basilar atelectasis. The visualized portions of the heart are within normal limits. Normal liver. Mild perihepatic fluid. Normal gallbladder and extrahepatic biliary system. Granulomatous calcifications in the spleen. Normal pancreas. Normal bilateral adrenal glands. 2 mm calculi in the right kidney. Subcentimeter cysts in the left kidney. Moderately distended stomach with retained gastric contents. Small hiatal hernia. Fluid distended small intestine. Prior surgery at the proximal colon with mesenteric thickening likely postsurgically related. Colonic air-fluid levels are noted. Diverticulosis of the colon. Normal abdominal aorta. Normal inferior vena cava. Normal retroperitoneum. Normal urinary bladder. Right lower quadrant and right lower pelvic fluid. Normal abdominal wall. Normal osseous structures. CT/Abdomen/Pelvis WITH Contrast IMPRESSION: Probable diffuse ileus with air-fluid levels. Follow-up is recommended. Colonic diverticulosis. Mild perihepatic fluid. Mild fluid in the right lower quadrant and right pelvic region. Right renal calculi. Left renal cysts. Small hiatal hernia. Electronically Signed: Carlos Renee DO at 23:58 EDT ,
[2021-11-15] MEDS: Ondansetron 4 MG/2 ML Vial IV ×2 (21:19→23:33)
[2021-11-15] MEDS: 0.9% Normal Saline 1,000 ML 150 ML IV (21:19)
[2021-11-15 21:30] LABS: Absolute Lymphocyte Count 2.14 X10^3/uL (0.83-4.51); Absolute Neutrophil Count 7.7 X10^3/uL (2.0-7.7); Basophil# 0.04 X10^3/uL; Basophil% 0.4 % (0-1); Eosinophil# 0.14 X10^3/uL; Eosinophils% 1.3 % (0-5); Hematocrit 50.2 % (40-54); Hemoglobin 17.1 g/dL (13.0-16.5); Lymphocyte # 2.14 X10^3/ul (0.83-4.51); Lymphocyte % 19.8 % (19-41); Mean Corp Hgb Conc 34.1 g/dL (32-36); Mean Corpuscular Hgb 29.5 pg (27.0-32.0); Mean Corpuscular Volume 86.7 fL (80-94); Mean Platelet Vol. 10.9 fl (6.2-12.0); Monocyte# 0.76 X10^3/uL; NRBC Flagged by Analyzer 0 % (0-5); Neutrophil # 7.67 X10^3/uL (2.7-7.7); Neutrophil % 71.1 % (47-70); Platelet Count 310 K/mm3 (150-450); RBC Distribution Width CV 13.5 % (11.6-14.6); RBC Distribution Width SD 42.3 fl (35.1-43.9); Red Blood Count 5.79 M/mm3 (4.6-6.2); White Blood Count 10.8 K/mm3 (4.4-11.0)
[2021-11-15 21:50] LABS: ALB/GLOB Ratio 0.9 RATIO (0.9-2.4); AST(SGOT) 20 U/L (15-37); Alanine Aminotransfer ALT/SGPT 48 U/L (16-61); Albumin, Serum 3.7 g/dL (3.2-5.0); Alkaline Phosphatase 78 U/L (45-117); Anion Gap 6 (5-15); BUN 19 mg/dL (7-18); BUN/Creat Ratio 18.3 RATIO (10-20); Calcium,Total 9.8 mg/dL (8.5-10.1); Chloride 104 mmol/L (98-107); Creatinine, Serum 1.04 mg/dL (0.70-1.30); EST Glomerular Filtration Rate 78 mL/min (>60); Est Glom Filt Rate - Afr Amer 95 mL/min (>60); Estimated Creatinine Clearance 75.82 ml/min; Globulin 4.2 g/dL (2.2-4.2); Glucose 131 mg/dL (74-106); Potassium 3.9 mmol/L (3.5-5.1); Protein, Total 7.9 g/dL (6.4-8.2); Sodium Level 138 mmol/L (136-145); Troponin-I HS < 3 pg/mL (3.0-78.0)
[2021-11-15 21:58] LABS: Lactic Acid 2.3 mmol/L (0.4-1.9)
[2021-11-15 22:15] VITALS: BP 138/67; PULSE 72; O2SAT 96
[2021-11-15 22:40] LABS: Mucous, Urine 0 SEEN /hpf (<or=2+); Squamous Epithelial Cells - UA 0 SEEN /hpf (0-5)
[2021-11-15 22:42] LABS: Color, Urine Yellow (Yellow); Glucose, Dipstick Normal (Normal); Ketone-Dipstick 5 mg/dl (Negative); Leukocyte Esterase-Dipstick 25 /ul (Negative); Nitrite-Dipstick Negative (Negative); Occult Blood-Urine 25 /ul (Negative); Protein-Dipstick 30 mg/dl (Negative); Urine Bilirubin Dipstick Negative (Negative); Urine Clarity Clear (Clear); Urine Urobilinogen 1 mg/dl (Normal)
[2021-11-15 22:55] LABS: Bacteria 1+ /hpf (None Seen); Calcium Oxalate Crystals Ur 1+ /hpf (<or=2+); Red Blood Cells-Urine 0-5 SEEN /hpf (0-5); White Blood Cells 0-5 SEEN /hpf (0-5)
[2021-11-15] MEDS: 0.9% Normal Saline 1,000 ML 999 ML IV (23:48)
[2021-11-16] VITALS (7 sets, daily range): BP systolic 124–151; BP diastolic 73–89; PULSE 75–83; RESP 16–18; TEMP 36.5–37.2; O2SAT 94–98; BMI 22.9
--- NOTE | 2021-11-16 00:31 | HP.PCM_ITS ---
HPI - General General Date of Admission: 11/16/21 HPI Narrative MICHELA ZEPEDA, is a 56 M who presents to [facility] with complaints of acute onset nausea, vomiting and malaise today following a laparoscopic right hemicolectomy for high-grade dysplasia on 11/09/2021. Patient states initially his postoperative recovery was rather uneventful. He states that his pain has been rather minimal at home and had been simply alternating Tylenol and ibuprofen up until yesterday when he decided to back off of some of this. He admits to difficulty sleeping overnight, but denies GI symptoms as a cause. Because of his poor sleep overnight he decided to nap from [id number] yesterday afternoon and upon awakening felt very nauseous and distended. On his arrival to the emergency department he did have a large bout of vomiting just prior to the CT scan. Patient's ER work-up is notable for CBC with normal white blood cell count, elevated hemoglobin, and a mild lactic acidosis. After mentioned CT revealed evidence of a postoperative ileus with dilated small bowel and proximal colon. Patient states that his nausea is much improved after his episode of vomiting he denies any abdominal pain at this point. However, when I queried him about an appetite he quickly denies an appetite. [facility] Medical History (Updated 11/16/21 @ 00:[address] Richard Olmstead MD) ADHD Anxiety Colon polyp COVID Depression Hemorrhoids Non-smoker Stone, kidney Home Medications methylphenidate HCl [Concerta] 72 mg PO DAILY 04/16/14 [History Last Taken Unknown] cholecalciferol (vitamin D3) [Vitamin D3] 1,000 unit PO DAILY 02/11/18 [History Last Taken Unknown] bupropion HCl 150 mg 24 hr tablet, extended release 150 mg PO DAILY tab 11/01/21 [History Last Taken Unknown] acetaminophen 650 mg PO Q6 PRN #0 tab 11/11/21 [Rx Last Taken Unknown] ibuprofen 600 mg PO Q6H PRN PRN #0 tab 11/11/21 [Rx Last Taken Unknown] Allergy/AdvReac Type Severity Reaction Status Date / Time Sulfa (Sulfonamide Allergy Unknown Verified 11/15/21 20:20 Antibiotics) Family History Mother Diabetes Cancer skin Father Diabetes Thyroid disorder Surgical History (Updated 11/15/21 @ 20:42 by Amanda Llamas) H/O right hemicolectomy History of colonoscopy History of lithotripsy S/P appendectomy S/P tonsillectomy Social History Smoking Status: Never smoker alcohol intake: current Vital Signs Vital Signs Vital Signs: 11/15/21 20:15 11/15/21 20:33 11/15/21 22:15 Temperature 96.3 F L Temperature Source Temporal Pulse Rate 81 72 Respiratory Rate 16 Respiratory Effort Normal Non-Labored Respiratory Pattern Normal Blood Pressure 123/93 H 138/67 H Blood Pressure Mean 103 90 Pulse Ox 97 96 Oxygen Delivery Method Room Air Room Air 11/16/21 00:08 Temperature 97.7 F L Temperature Source Temporal Pulse Rate 82 Respiratory Rate 18 Respiratory Effort Respiratory Pattern Blood Pressure 145/89 H Blood Pressure Mean 107 Pulse Ox 95 Oxygen Delivery Method Room Air Weight Weight: 156 lb Body Mass Index (BMI) 23.7 Physical Exam Const alert and oriented x3 General Appearance: cooperative Resp normal respiratory effort Cardio regular rate GI GI Narrative: Mildly distended, ecchymosis over supraumbilical hand assist site. Mild tenderness to palpation of the right lower quadrant and just about his incisions. Steri-Strips remain intact over the incision. Results Lab / Micro Data Result Diagrams: 11/15/21 21:20 11/15/21 21:20 Labs: Laboratory Results - last 24 hr 11/15/21 21:20: WBC 10.8, RBC 5.79, Hgb 17.1 H, Hct 50.2, MCV 86.7, MCH 29.5, MCHC 34.1, RDW Std Deviation 42.3, RDW Coeff of Denzel 13.5, Plt Count 310, MPV 10.9, Immature Gran % (Auto) 0.400, Neut % (Auto) 71.1 H, Lymph % (Auto) 19.8, [place] % (Auto) 7.0, Eos % (Auto) 1.3, Baso % (Auto) 0.4, Absolute Neuts (auto) 7.7, Absolute Lymphs (auto) 2.14, Nucleated RBC % 0 11/15/21 21:20: Sodium 138, Potassium 3.9, Chloride 104, Carbon Dioxide 28.0, Anion Gap 6, BUN 19 H, Creatinine 1.04, Estim Creat Clear Calc 75.82, Est GFR (MDRD) Af Amer 95, Est GFR (MDRD) Non-Af 78, BUN/Creatinine Ratio 18.3, Glucose 131 H, Calcium 9.8, Total Bilirubin 0.50, AST 20, ALT 48, Alkaline Phosphatase 78, Troponin I High Sens < 3 L, Total Protein 7.9, Albumin 3.7, Globulin 4.2, Albumin/Globulin Ratio 0.9 11/15/21 21:20: Lactic Acid 2.3 H* 11/15/21 22:35: Urine Color Yellow, Urine Clarity Clear, Urine pH 5.0, Ur Speci fic [place] 1.030, Urine Protein 30 H, Urine Glucose (UA) Normal, Urine Ketones 5 H, Urine Occult Blood 25 H, Urine Nitrite Negative, Urine Bilirubin Negative, Urine Urobilinogen 1 H, Ur Leukocyte Esterase 25 H, Urine RBC 0-5 SEEN, Urine WBC 0-5 SEEN, Ur Squamous Epith Cells 0 SEEN, Calcium Oxalate Crystal 1+, Urine Bacteria 1+, Urine Mucus 0 SEEN Radiology Impression Abdomen/Pelvis CT 11/15/21 20:45 IMPRESSION: Probable diffuse ileus with air-fluid levels. Follow-up is recommended. Colonic diverticulosis. Mild perihepatic fluid. Mild fluid in the right lower quadrant and right pelvic region. Right renal calculi. Left renal cysts. Small hiatal hernia. Electronically Signed: Carlos Renee DO at 23:58 EDT Reading Location ID and State: [facility] / [place] Tel [phone], Service support , Assessment & Plan Assessment/Plan (1) Postoperative ileus: PLAN: Patient postoperative day 7 from right colectomy with primary staple d ileocolic anastomosis for high-grade dysplasia who presents with signs and symptoms of postoperative ileus and mild dehydration. Patient had large volume emesis on his arrival to the ER, but denies any nausea at this time. Unfortunately he also states that he has not passed flatus since his arrival here (but did have gas and a small bowel movement prior to coming to the ER). Therefore, will hold off on placing a nasogastric tube, but admit patient for ongoing bowel rest and IV fluid hydration. Charges/Coding Visit Charges Inpatient E&M: 98706 Init Hosp L2
[2021-11-16] MEDS: 0.9% Normal Saline 1,000 ML 125 ML IV ×3 (01:14→18:24)
[2021-11-16 01:28] LABS: Reflex Lactate? Y
[2021-11-16 02:17] LABS: Lactic Acid 0.8 mmol/L (0.4-1.9)
[2021-11-16 06:50] LABS: Phosphorus 2.8 mg/dL (2.5-4.9)
--- NOTE | 2021-11-16 10:55 | RAD_ITS ---
EXAM: XR ABDOMEN, 1 VIEW CLINICAL INDICATION: ileus TECHNIQUE: Frontal supine view of the abdomen/pelvis. This report was created using iHigh report generation technology. COMPARISON: CT abdomen and pelvis 11/15/2021 FINDINGS: LOWER THORAX: No acute pathology. GASTROINTESTINAL TRACT: Distended small bowel loops again noted which may represent ileus or bowel obstruction. ORGANS: Unremarkable as visualized. No organomegaly. No abnormal calcifications. BONES/JOINTS: No acute pathology. SOFT TISSUES: Fine surgical josselyn noted within the right side of the mid abdomen. RAD/Abdomen Single View (Portable) IMPRESSION: Persistent small bowel obstruction/ileus. Electronically Signed: Mark Canchola MD at 11:16 EDT ,
--- NOTE | 2021-11-16 11:40 | CASEMGMT ---
AKILA SALGUERO Readmission Note Previous Admission: 11/09/21-11/11/21 Diagnosis: R lap hemicolectomy DC Disposition: Home Current Admission Current Diagnosis: postop ileus Pt presented to ER from home with nausea, generalized weakness and diaphoresis. Pt had R lap hemicolectomy last week. Pt has fu appt with PCP next Sunday and surgeon on Sunday. Pt reports taking his medications as ordered. Pt NPO with bowel rest and hydration. Pt denies need for any services homegoing. AKILA SALGUERO to follow. DC PLAN: Home Pt screened with [facility] Palliative Care Screening Tool d/t readmit, pt did not meet criteria.
[2021-11-16] MEDS: 0.9% Saline Lock 10 ML Syringe IV (11:55)
--- NOTE | 2021-11-16 12:00 | RAD_ITS ---
STUDY: GASTROGRAFIN SMALL BOWEL FOLLOW-THROUGH EXAMINATION. REASON FOR EXAM: Male, 56 years old. Ileus vs obstruction TECHNIQUE: GASTROGRAFIN was ingested by the patient. A small bowel follow-through examination was then obtained. 6 images were submitted. COMPARISON: Comparison is made with prior radiographs done earlier in the day. FINDINGS: There is evidence of small bowel dilatation in the left abdomen. Contrast is seen within dilated small bowel loops in the left hemiabdomen. There is delayed flow into the distal jejunum and ileum. Contrast is seen within the right hemicolon at 105 minutes following the ingestion of GASTROGRAFIN. RAD/Small Bowel Series Only IMPRESSION: Findings suggest low partial small bowel obstruction with the transition in the distal jejunum proximal ileum. Electronically Signed: Edy Payne MD at 14:29 EDT ,
--- NOTE | 2021-11-16 14:15 | PCM.PN.SRG ---
Subjective Subjective Patient noted that he vomited in the emergency room but he did not have any nausea this morning. He did have a liquid bowel movement this morning. He does feel bloated but is not having any abdominal pain. Objective Data Objective Data Vital Signs: Vital Signs Temp Pulse Resp BP Pulse Ox 98.1 F 78 18 133/81 H 98 11/16/21 08:12 11/16/21 08:12 11/16/21 08:12 11/16/21 08:12 11/16/21 08:12 Oxygen Delivery Method Room Air Weight: 151 lb 7.321 oz Body Mass Index (BMI) 22.9 Intake & Output: Intake and Output for Last 24 Hours 11/14/21 11/15/21 11/16/21 23:59 23:59 23:59 Intake Total 3323.33 / 3323.33 Balance 3323.33 / 3323.33 Lab / Micro Data Result Diagrams: 11/15/21 21:20 11/15/21 21:20 Labs: Laboratory Results - last 24 hr 11/15/21 21:20: WBC 10.8, RBC 5.79, Hgb 17.1 H, Hct 50.2, MCV 86.7, MCH 29.5, MCHC 34.1, RDW Std Deviation 42.3, RDW Coeff of Denzel 13.5, Plt Count 310, MPV 10.9, Immature Gran % (Auto) 0.400, Neut % (Auto) 71.1 H, Lymph % (Auto) 19.8, [place] % (Auto) 7.0, Eos % (Auto) 1.3, Baso % (Auto) 0.4, Absolute Neuts (auto) 7.7, Absolute Lymphs (auto) 2.14, Nucleated RBC % 0 11/15/21 21:20: Sodium 138, Potassium 3.9, Chloride 104, Carbon Dioxide 28.0, Anion Gap 6, BUN 19 H, Creatinine 1.04, Estim Creat Clear Calc 75.82, Est GFR (MDRD) Af Amer 95, Est GFR (MDRD) Non-Af 78, BUN/Creatinine Ratio 18.3, Glucose 131 H, Calcium 9.8, Total Bilirubin 0.50, AST 20, ALT 48, Alkaline Phosphatase 78, Troponin I High Sens < 3 L, Total Protein 7.9, Albumin 3.7, Globulin 4.2, Albumin/Globulin Ratio 0.9 11/15/21 21:20: Lactic Acid 2.3 H* 11/15/21 22:35: Urine Color Yellow, Urine Clarity Clear, Urine pH 5.0, Ur Specific [place] 1.030, Urine Protein 30 H, Urine Glucose (UA) Normal, Urine Ketones 5 H, Urine Occult Blood 25 H, Urine Nitrite Negative, Urine Bilirubin Negative, Urine Urobilinogen 1 H, Ur Leukocyte Esterase 25 H, Urine RBC 0-5 SEEN, Urine WBC 0-5 SEEN, Ur Squamous Epith Cells 0 SEEN, Calcium Oxalate Crystal 1+, Urine Bacteria 1+, Urine Mucus 0 SEEN 11/16/21 01:40: Lactic Acid 0.8 11/16/21 05:08: Phosphorus 2.8, Magnesium 2.0 Radiography Diagnostic Testing: Radiology Impression Abdomen/Pelvis CT 11/15/21 20:45 IMPRESSION: Probable diffuse ileus with air-fluid levels. Follow-up is recommended. Colonic diverticulosis. Mild perihepatic fluid. Mild fluid in the right lower quadrant and right pelvic region. Right renal calculi. Left renal cysts. Small hiatal hernia. Electronically Signed: Carlos Renee DO at 23:58 EDT , KUB X-Ray 11/16/21 10:55 IMPRESSION: Persistent small bowel obstruction/ileus. Electronically Signed: Mark Canchola MD at 11:16 EDT , Physical Exam Const alert and oriented x3 Resp normal respiratory effort and normal air movement Cardio regular rate and regular rhythm GI soft to palpation, non-tender and non-distended Inspection: abdominal distention Assessment & Plan Assessment/Plan (1) Postoperative ileus: PLAN: Patient was admitted with questionable postoperative ileus. Patient is still n.p.o. and he is having bowel function but is not passing much gas. He does not have any nausea or vomiting at this time. I have ordered a small bowel follow-through for today. Everett Jason MD Pager: [facility] [address] [place] [address], [address] [place] [address] Office:
[2021-11-16 15:19] LABS: Absolute Lymphocyte Count 1.18 X10^3/uL (0.83-4.51); Basophil# 0.02 X10^3/uL; Basophil% 0.3 % (0-1); Eosinophil# 0.16 X10^3/uL; Eosinophils% 2.3 % (0-5); Hematocrit 48.2 % (40-54); Hemoglobin 16.1 g/dL (13.0-16.5); Lymphocyte # 1.18 X10^3/ul (0.83-4.51); Lymphocyte % 16.8 % (19-41); Mean Corp Hgb Conc 33.4 g/dL (32-36); Mean Corpuscular Hgb 29.5 pg (27.0-32.0); Mean Corpuscular Volume 88.3 fL (80-94); Mean Platelet Vol. 10.9 fl (6.2-12.0); Monocyte% 8.5 % (0-10); NRBC Flagged by Analyzer 0 % (0-5); Neutrophil # 5.04 X10^3/uL (2.7-7.7); Neutrophil % 71.5 % (47-70); Platelet Count 269 K/mm3 (150-450); RBC Distribution Width CV 13.5 % (11.6-14.6); RBC Distribution Width SD 43.5 fl (35.1-43.9); Red Blood Count 5.46 M/mm3 (4.6-6.2)
[2021-11-16 16:01] LABS: Anion Gap 8 (5-15); BUN 13 mg/dL (7-18); BUN/Creat Ratio 17.7 RATIO (10-20); Calcium,Total 8.6 mg/dL (8.5-10.1); Chloride 110 mmol/L (98-107); Creatinine, Serum 0.74 mg/dL (0.70-1.30); EST Glomerular Filtration Rate 117 mL/min (>60); Est Glom Filt Rate - Afr Amer 141 mL/min (>60); Estimated Creatinine Clearance 106.55 ml/min; Glucose 101 mg/dL (74-106); Sodium Level 140 mmol/L (136-145)
[2021-11-17] VITALS (11 sets, daily range): BP systolic 127–150; BP diastolic 69–95; PULSE 72–113; RESP 16–18; TEMP 36.4–38; O2SAT 92–98; BMI 23.0
[2021-11-17] MEDS: 0.9% Normal Saline 1,000 ML 125 ML IV (02:07)
--- NOTE | 2021-11-17 05:55 | RAD_ITS ---
STUDY: X-RAY - ABDOMEN/PELVIS REASON FOR EXAM: Male, 56 years old. sbo, post small bowel series TECHNIQUE: Single AP view of the abdomen / pelvis. COMPARISON: 11/16/2021 FINDINGS: Oral contrast seen within the stomach, duodenum, and small bowel. There are dilated loops of the small intestine with a non-distended colon consistent with a small bowel obstruction. The visualized liver, spleen and kidneys are grossly normal in size and morphology. Normal soft tissue structures. Normal visualized osseous structures. RAD/Abdomen Single View (Portable) IMPRESSION: Moderate small bowel obstruction. Electronically Signed: Agusto Barajas MD at 7:15 EDT ,
[2021-11-17 06:12] LABS: Absolute Lymphocyte Count 1.44 X10^3/uL (0.83-4.51); Absolute Neutrophil Count 4.5 X10^3/uL (2.0-7.7); Basophil# 0.02 X10^3/uL; Basophil% 0.3 % (0-1); Eosinophil# 0.26 X10^3/uL; Eosinophils% 3.8 % (0-5); Hematocrit 45.8 % (40-54); Lymphocyte # 1.44 X10^3/ul (0.83-4.51); Lymphocyte % 20.9 % (19-41); Mean Corp Hgb Conc 32.8 g/dL (32-36); Mean Corpuscular Hgb 29.1 pg (27.0-32.0); Mean Corpuscular Volume 88.8 fL (80-94); Mean Platelet Vol. 10.6 fl (6.2-12.0); Monocyte# 0.68 X10^3/uL; Monocyte% 9.9 % (0-10); NRBC Flagged by Analyzer 0 % (0-5); Neutrophil # 4.46 X10^3/uL (2.7-7.7); Neutrophil % 64.7 % (47-70); Platelet Count 276 K/mm3 (150-450); RBC Distribution Width CV 13.5 % (11.6-14.6); RBC Distribution Width SD 43.9 fl (35.1-43.9); Red Blood Count 5.16 M/mm3 (4.6-6.2); White Blood Count 6.9 K/mm3 (4.4-11.0)
[2021-11-17 06:54] LABS: Anion Gap 6 (5-15); BUN 14 mg/dL (7-18); BUN/Creat Ratio 18.9 RATIO (10-20); Calcium,Total 8.1 mg/dL (8.5-10.1); Chloride 113 mmol/L (98-107); Creatinine, Serum 0.74 mg/dL (0.70-1.30); EST Glomerular Filtration Rate 116 mL/min (>60); Est Glom Filt Rate - Afr Amer 140 mL/min (>60); Estimated Creatinine Clearance 106.55 ml/min; Glucose 94 mg/dL (74-106); Sodium Level 140 mmol/L (136-145)
--- NOTE | 2021-11-17 07:37 | PCM.PN.SRG ---
Subjective Subjective Patient reports no abdominal pain this morning. He has had no nausea or vomiting overnight. The patient has had 5 liquid bowel movements overnight. Objective Data Objective Data Vital Signs: Vital Signs Temp Pulse Resp BP Pulse Ox 98 F 72 16 127/69 H 96 11/17/21 05:16 11/17/21 05:16 11/17/21 05:16 11/17/21 05:16 11/17/21 05:16 Oxygen Delivery Method Room Air Weight: 151 lb 7.321 oz Body Mass Index (BMI) 22.9 Intake & Output: Intake and Output for Last 24 Hours 11/15/21 11/16/21 11/17/21 23:59 23:59 23:59 Intake Total 3792.08 / 3792.08 1566.66 / 1566.66 Balance 3792.08 / 3792.08 1566.66 / 1566.66 Lab / Micro Data Result Diagrams: 11/17/21 05:55 11/17/21 05:55 Labs: Laboratory Results - last 24 hr 11/16/21 15:10: WBC 7.0, RBC 5.46, Hgb 16.1, Hct 48.2, MCV 88.3, MCH 29.5, MCHC 33.4, RDW Std Deviation 43.5, RDW Coeff of Denzel 13.5, Plt Count 269, MPV 10.9, Immature Gran % (Auto) 0.600, Neut % (Auto) 71.5 H, Lymph % (Auto) 16.8 L, [place] % (Auto) 8.5, Eos % (Auto) 2.3, Baso % (Auto) 0.3, Absolute Neuts (auto) 5.0, Absolute Lymphs (auto) 1.18, Nucleated RBC % 0 11/16/21 15:10: Sodium 140, Potassium 4.0, Chloride 110 H, Carbon Dioxide 22.0, Anion Gap 8, BUN 13, Creatinine 0.74, Estim Creat Clear Calc 106.55, Est GFR (MDRD) Af Amer 141, Est GFR (MDRD) Non-Af 117, BUN/Creatinine Ratio 17.7, Glucose 101, Calcium 8.6 11/17/21 05:55: WBC 6.9, RBC 5.16, Hgb 15.0, Hct 45.8, MCV 88.8, MCH 29.1, MCHC 32.8, RDW Std Deviation 43.9, RDW Coeff of Denzel 13.5, Plt Count 276, MPV 10.6, Immature Gran % (Auto) 0.400, Neut % (Auto) 64.7, Lymph % (Auto) 20.9, [place] % (Auto) 9.9, Eos % (Auto) 3.8, Baso % (Auto) 0.3, Absolute Neuts (auto) 4.5, Absolute Lymphs (auto) 1.44, Nucleated RBC % 0 11/17/21 05:55: Sodium 140, Potassium 4.0, Chloride 113 H, Carbon Dioxide 21.0, Anion Gap 6, BUN 14, Creatinine 0.74, Estim Creat Clear Calc 106.55, Est GFR (MDRD) Af Amer 140, Est GFR (MDRD) Non-Af 116, BUN/Creatinine Ratio 18.9, Glucose 94, Calcium 8.1 L Radiography Diagnostic Testing: Radiology Impression KUB X-Ray 11/16/21 10:55 IMPRESSION: Persistent small bowel obstruction/ileus. Electronically Signed: Mark Canchola MD at 11:16 EDT , Small Bowel X-Ray 11/16/21 12:00 IMPRESSION: Findings suggest low partial small bowel obstruction with the transition in the distal jejunum proximal ileum. Electronically Signed: Edy Payne MD at 14:29 EDT , KUB X-Ray 11/17/21 05:55 IMPRESSION: Moderate small bowel obstruction. Electronically Signed: Agusto Barajas MD at 7:15 EDT , Physical Exam Resp normal respiratory effort Cardio regular rate and regular rhythm GI soft to palpation and non-tender Assessment & Plan Assessment/Plan (1) Postoperative ileus: PLAN: Is hard to tell if the patient is having postoperative ileus versus partial small bowel obstruction. The patient had small bowel follow-through yesterday which showed delayed transit and this morning the patient does have contrast in his left colon. Patient is not experiencing any abdominal pain or nausea this morning. There is no stomach distention on KUB from this morning although there is still dilation of some of the small bowel. I discussed possible surgery with him versus a trial of diet. The patient would opt for trial of diet so I will try clear liquid diet today to see how he tolerates this. If he does not tolerate this then I will take him tomorrow for laparoscopy with exploration. Patient is in agreement with the plan. Everett Jason MD Pager: [facility] [address] [place] [address], [address] [place] [address] Office:
--- NOTE | 2021-11-17 08:53 | MDS.RN ---
pt states aware of clear liquids- states he will stick with drinking water at this time i am just afraid if i eat too much, they will have to suck it back out of me and i don't want that.
[2021-11-17] MEDS: Lactated Ringers 1,000 ML 15 ML IV ×2 (13:20→15:30)
--- NOTE | 2021-11-17 13:52 | PCM.PN.BLA ---
Progress Note The patient tried clear liquids for breakfast. He became nauseated a few hours later and feeling more bloated. He stopped having liquid bowel movements. At this time I recommend laparoscopy with possible laparotomy for exploration and to see if there are adhesions that may be removed that are causing obstruction. I discussed this with the patient in detail. I discussed the risks including but not limited to bleeding, infection, injury to other organs, need for bowel resection, need for open laparotomy. Patient understands the risks and is willing to proceed. Everett Jason MD Pager: [facility] [address] [place] [address], [address] [place] [address] Office:
--- NOTE | 2021-11-17 14:00 | COL_PTH ---
PATIENT: MICHELA ZEPEDA LOC: MS3 U#:[id number] AGE/SX: 56/M ROOM: OR317 RE11/16/[address]: Dr. Everett Jason MD : 1965 BED: 1 DIS: 11/23/2021 SPEC #: [id number] RECD: 11/17/21 16:34 STATUS: AIDA DUPREE #: [id number] NONI: 11/17/21 14:[address]: Everett Jason DEPT: SURGICAL PATHOLOGY RECD BY: Soraya Sommer ENTERED: 11/18/21 08:36 SP TYPE: COLON OTHR DR: MD Dr. Richard Polo MD Tissues: Colon, NOS Procedures: Surgery Specimen Level V HEADER OPERATION: Diagnostic Laparoscopy, Laparotomy, Small Bowel Resection PRE-OP DIAGNOSIS: Postoperative ileus, small bowel resection TISSUE SUBMITTED: Distal Small Bowel with Anastomosis MICROSCOPIC DIAGNOSIS Distal small bowel with anastomosis: Anastomosis area, intact. Diverticulosis. Extensive serosal adhesions and reactive changes. Mesenteric tissue and pericolonic adipose tissue with marked reactive changes. Omentum, reactive changes Donut, no pathologic diagnosis. BHAVESH:pilo 11/22/2021 COMMENT Please make reference to previous specimen ([id number]), right colon and additional small bowel segment, hemicolectomy with diagnosis of ?residual tubular adenoma.? Case has been reviewed in consultation with Dr. Szymanski who concurs with the above diagnosis. IDC:AM MICROSCOPIC DESCRIPTION Slides are reviewed. GROSS DESCRIPTION Received is one container labeled with the patient name and designated distal small bowel with anastomosis. The specimen consists of a segment of small bowel with focal area adherent to one another and is U-shaped measuring 33 cm in length. 2 cm away from one resection margin, an intact anastomosis is noted. No mucosal lesion is identified. The serosal surface shows focal area of congestion and hemorrhage. Both resection margins are stapled. Also present attached to the bowel is a piece of omentum measuring 18 x 18 x 2 cm. More dictation will follow after fixation. / BHAVESH:pilo 11/18/2021 A piece of bowel tissue is also noted and may represent a portion of donut measuring 9 x 0.5 x 0.1 cm. No mucosal lesion is identified. Sections of the colon reveal a few diverticula. No obviously ruptured diverticula are noted. Envelope Sealer Operator sections are submitted in ten cassettes as follows: 1 ? donut, 2 ? resection margin closer to the area of the anastomosis, 3 ? opposite resection margin, 4 & 5 ? colon with diverticula, 6 ? colon adjacent to the anastomosis 7 - small bowel adjacent to the anastomosis, 8 ? small bowel with area of serosal adhesion, 9 mesenteric and pericolonic adipose tissue in the area of adhesion, 10 ? omentum. / SJ:pilo 11/21/2021 TC:5 / SJ:pilo 11/18/2021 CPT: 86567, 66766
--- NOTE | 2021-11-17 16:36 | OP.PCM_ITS ---
Problems Associated Problem List Diagnoses (1) Small bowel obstruction: Report of Operation Date of Procedure: 11/17/21 Pre-Operative Diagnosis: Small bowel obstruction Post-Operative Diagnosis: Small bowel obstruction Surgery/Procedure Performed:: Laparoscopy converted to laparotomy with resection of prior anastomosis and small bowel with primary anastomosis between the small bowel and the transverse colon Specimen's removed: Distal small bowel and ileocolic anastomosis Description of Procedure: Patient was brought back to the operating room and general anesthesia was induced. Mendieta catheter was placed. The abdomen was prepped and draped in usual sterile fashion. The patient's left lower quadrant prior port site was opened with a scalpel and then a blunt sleeve was placed through this and into the abdomen using Visiport technique. The abdomen was insufflated 15 mmHg. A 5 mm port was placed in the infraumbilical and left upper quadrant. Using atraumatic graspers the small bowel was explored but it was densely adherent to the omentum in the right upper quadrant. I was unable to free this and so we decided to convert his surgery to laparotomy. His prior midline incision superior the umbilicus was reopened using a scalpel and his fascial sutures were cut. A wound protector was placed. The small bowel and prior anastomosis was delivered into the incision after a lot of lysis of adhesions as the small bowel and the right upper quadrant was densely adherent to the stomach and omentum. Once they were delivered into the incision and seen that the distal small bowel had become very densely adherent to itself and the omentum. This was likely the cause of the obstruction. A small window was made just distal to the anastomosis in the transverse colon and this was divided using a ESCOBAR stapler. In the same fashion the small bowel was divided proximal to this area of firm small bowel. LigaSure impact was used to take down the m esentery to this and was sent for pathology. The rest of the small bowel was run from ligament of Treitz all the way to the distal staple line and there were no other adhesions or transition zones. Next a small melissa was made in the distal small bowel as well as transverse colon and they were stable together in a [id number] functional end-to-end fashion. The staple line was inspected and appeared to be hemostatic. There is good blood supply to the anastomosis. The common enterotomy was closed with a TX 60 stapler. Hemostasis was obtained using 3-0 silk. The abdomen was irrigated and suctioned dry and the bowel was run once more. Next the omentum was draped over the small bowel and the incision fascia was closed with running #1 PDS from top and bottom meeting in the middle with interrupted 0 Prolene sutures every inch. The subcutaneous tissue was irrigated and suctioned dry and the midline incision and port sites were closed with interrupted 4-0 Monocryl sutures. Steri-Strips were applied. Bandages were applied. Patient's Mendieta was removed and patient was taken to PACU in stable condition. OG was placed during the case but NG was unable to be placed so the patient was taken to PACU without an NG in place. Admit VTE Documentation VTE Mechan Device Prophylaxis: SCD's
[2021-11-17] MEDS: 0.9% Normal Saline 1,000 ML 100 ML IV (18:36)
[2021-11-17] MEDS: Morphine 2 MG/ML Syringe IV (20:26)
[2021-11-18] MEDS: Morphine 2 MG/ML Syringe IV ×5 (02:20→21:32)
[2021-11-18 02:25] VITALS: BP 144/95; PULSE 94; RESP 18; TEMP 36.8; O2SAT 95
[2021-11-18] MEDS: 0.9% Normal Saline 1,000 ML 100 ML IV (03:05)
[2021-11-18 06:28] LABS: Absolute Lymphocyte Count 0.57 X10^3/uL (0.83-4.51); Absolute Neutrophil Count 4.9 X10^3/uL (2.0-7.7); Basophil# 0.02 X10^3/uL; Basophil% 0.3 % (0-1); Eosinophil# 0.01 X10^3/uL; Eosinophils% 0.2 % (0-5); Hematocrit 44.4 % (40-54); Hemoglobin 14.8 g/dL (13.0-16.5); Lymphocyte # 0.57 X10^3/ul (0.83-4.51); Lymphocyte % 8.6 % (19-41); Mean Corp Hgb Conc 33.3 g/dL (32-36); Mean Corpuscular Hgb 29.5 pg (27.0-32.0); Mean Corpuscular Volume 88.4 fL (80-94); Mean Platelet Vol. 10.9 fl (6.2-12.0); Monocyte# 1.03 X10^3/uL; Monocyte% 15.6 % (0-10); NRBC Flagged by Analyzer 0 % (0-5); Neutrophil # 4.94 X10^3/uL (2.7-7.7); POSITIVE DIFFERENTIAL YES; Platelet Count 309 K/mm3 (150-450); RBC Distribution Width CV 13.3 % (11.6-14.6); Red Blood Count 5.02 M/mm3 (4.6-6.2); White Blood Count 6.6 K/mm3 (4.4-11.0)
[2021-11-18 06:35] LABS: Differential Indicated SCAN CRITERIA MET
[2021-11-18 06:44] LABS: Differential Comment SCANNED
[2021-11-18 07:04] VITALS: O2SAT 95
[2021-11-18 07:05] LABS: Anion Gap 6 (5-15); BUN 16 mg/dL (7-18); Calcium,Total 8.4 mg/dL (8.5-10.1); Chloride 108 mmol/L (98-107); Creatinine, Serum 0.84 mg/dL (0.70-1.30); EST Glomerular Filtration Rate 100 mL/min (>60); Est Glom Filt Rate - Afr Amer 121 mL/min (>60); Estimated Creatinine Clearance 93.87 ml/min; Glucose 132 mg/dL (74-106); Potassium 4.7 mmol/L (3.5-5.1); Sodium Level 136 mmol/L (136-145)
[2021-11-18 07:50] VITALS: BP 114/79; PULSE 58; RESP 18; TEMP 36.8; O2SAT 98
--- NOTE | 2021-11-18 09:24 | PCM.PN.SRG ---
Subjective Subjective Patient does not report any nausea overnight. He is having abdominal pain. Objective Data Objective Data Vital Signs: Vital Signs Temp Pulse Resp BP Pulse Ox 98.3 F 58 L 18 114/79 98 11/18/21 07:50 11/18/21 07:50 11/18/21 07:50 11/18/21 07:50 11/18/21 07:50 Oxygen Flow Rate (L/min) 2 Oxygen Delivery Method Room Air Weight: 151 lb 7.321 oz Body Mass Index (BMI) 23.0 Intake & Output: Intake and Output for Last 24 Hours 11/16/21 11/17/21 11/18/21 23:59 23:59 23:59 Intake Total 3792.08 / 3792.08 3041.16 / 3041.16 848.33 / 848.33 Output Total 250 / 250 125 / 125 Balance 3792.08 / 3792.08 2791.16 / 2791.16 723.33 / 723.33 Lab / Micro Data Result Diagrams: 11/18/21 05:30 11/18/21 05:30 Labs: Laboratory Results - last 24 hr 11/18/21 05:30: WBC 6.6, RBC 5.02, Hgb 14.8, Hct 44.4, MCV 88.4, MCH 29.5, MCHC 33.3, RDW Std Deviation 43.0, RDW Coeff of Denzel 13.3, Plt Count 309, MPV 10.9, Immature Gran % (Auto) 0.300, Neut % (Auto) 75.0 H, Lymph % (Auto) 8.6 L, [place] % (Auto) 15.6 H, Eos % (Auto) 0.2, Baso % (Auto) 0.3, Absolute Neuts (auto) 4.9, Absolute Lymphs (auto) 0.57 L, Nucleated RBC % 0, Differential Comment SCANNED 11/18/21 05:30: Sodium 136, Potassium 4.7, Chloride 108 H, Carbon Dioxide 22.0, Anion Gap 6, BUN 16, Creatinine 0.84, Estim Creat Clear Calc 93.87, Est GFR (MDRD) Af Amer 121, Est GFR (MDRD) Non-Af 100, BUN/Creatinine Ratio 19.0, Glucose 132 H, Calcium 8.4 L Physical Exam Const oriented x3 and no apparent distress Resp normal respiratory effort Cardio regular rate GI soft to palpation Palpation: tender Assessment & Plan Assessment/Plan (1) Small bowel obstruction: PLAN: Patient had postoperative small bowel obstruction due to adhesions after right hemicolectomy. He went back to the operating room yesterday for revision and resection of this area of small bowel and reanastomosis to the colon. Continue n.p.o. with IV fluids until the patient started passing flatus and then advance diet. Everett Jason MD Pager: [facility] [address] [place] [address] [address] [place] [address] Office:
[2021-11-18] MEDS: 0.9% Saline Lock 10 ML Syringe IV ×2 (11:22→17:08)
[2021-11-18] MEDS: buPROPion (XL) 150 MG TABLET.XL PO (13:56)
[2021-11-18 14:46] VITALS: BP 134/74; PULSE 78; RESP 18; TEMP 36.9; O2SAT 98
[2021-11-18 20:30] VITALS: BP 142/68; PULSE 78; RESP 16; TEMP 36.8; O2SAT 95
[2021-11-19] MEDS: 0.9% Normal Saline 1,000 ML 100 ML IV ×2 (00:08→10:02)
[2021-11-19 02:30] VITALS: BP 139/78; PULSE 85; RESP 16; TEMP 36.6; O2SAT 96
[2021-11-19] MEDS: Morphine 2 MG/ML Syringe IV (06:53)
[2021-11-19 08:15] VITALS: BP 130/81; PULSE 87; RESP 16; TEMP 37.1; O2SAT 95
--- NOTE | 2021-11-19 08:34 | PN.SURG_ITS ---
Subjective Subjective Patient seen examined during AM rounds. He is found resting quietly in bed. He states that his pain is rated at a 1/10 this morning after a dose of morphine earlier. He denies any appetite. He is not passing gas. He does state that he is burping a little bit this morning. He confirms that he has been walking the halls several times a day and chewing gum to try to stimulate bowel function. Objective Data Objective Data Vital Signs: Vital Signs Temp Pulse Resp BP Pulse Ox 97.9 F 85 16 139/78 H 96 11/19/21 02:30 11/19/21 02:30 11/19/21 02:30 11/19/21 02:30 11/19/21 02:30 Oxygen Flow Rate (L/min) 2 Oxygen Delivery Method Room Air Weight: 151 lb 7.321 oz Body Mass Index (BMI) 23.0 Intake & Output: Intake and Output for Last 24 Hours 11/17/21 11/18/21 11/19/21 23:59 23:59 23:59 Intake Total 3041.16 / 3041.16 2058.33 / 2058.33 Output Total 250 / 250 1275 / 1275 400 / 400 Balance 2791.16 / 2791.16 783.33 / 783.33 -400 / -400 Lab / Micro Data Result Diagrams: 11/18/21 05:30 11/18/21 05:30 Physical Exam Const no apparent distress Resp normal respiratory effort GI GI Narrative: Nondistended, operative dressings in place with silver dressing over laparotomy site and port sites covered with OpSite dressings that are clean and dry. Soft, and appropriately/minimally tender about incision sites Assessment & Plan Assessment/Plan (1) Small bowel obstruction: PLAN: Patient had postoperative small bowel obstruction due to adhesions after right hemicolectomy. He went back to the operating room 11/17/2021 for revision and resection of this area of small bowel and reanastomosis to the colon. ? Continue n.p.o. with IV fluids ? Obtain basic labs this a.m. given n.p.o. status ? Toradol for pain relief to minimize narcotic effect on bowel function return Richard Olmstead MD General Surgery Endocrine Surgery Pager: [facility] [address] [place] [address], [facility], [address] [place] [id number] Office: [phone] Charges/Coding Visit Charges Inpatient E&M: 07409 Subs Hosp L2
[2021-11-19 09:26] LABS: Absolute Lymphocyte Count 0.97 X10^3/uL (0.83-4.51); Absolute Neutrophil Count 2.9 X10^3/uL (2.0-7.7); Basophil# 0.02 X10^3/uL; Basophil% 0.4 % (0-1); Eosinophil# 0.17 X10^3/uL; Eosinophils% 3.5 % (0-5); Hematocrit 38.1 % (40-54); Lymphocyte # 0.97 X10^3/ul (0.83-4.51); Mean Corp Hgb Conc 34.1 g/dL (32-36); Mean Corpuscular Hgb 29.6 pg (27.0-32.0); Mean Corpuscular Volume 86.8 fL (80-94); Mean Platelet Vol. 10.7 fl (6.2-12.0); Monocyte# 0.74 X10^3/uL; Monocyte% 15.3 % (0-10); NRBC Flagged by Analyzer 0 % (0-5); Neutrophil # 2.93 X10^3/uL (2.7-7.7); Neutrophil % 60.4 % (47-70); Platelet Count 290 K/mm3 (150-450); RBC Distribution Width CV 13.2 % (11.6-14.6); RBC Distribution Width SD 41.3 fl (35.1-43.9); Red Blood Count 4.39 M/mm3 (4.6-6.2); White Blood Count 4.9 K/mm3 (4.4-11.0)
[2021-11-19 09:48] LABS: Anion Gap 6 (5-15); BUN 13 mg/dL (7-18); BUN/Creat Ratio 21.3 RATIO (10-20); Calcium,Total 7.9 mg/dL (8.5-10.1); Chloride 106 mmol/L (98-107); Creatinine, Serum 0.61 mg/dL (0.70-1.30); EST Glomerular Filtration Rate 145 mL/min (>60); Est Glom Filt Rate - Afr Amer 175 mL/min (>60); Estimated Creatinine Clearance 129.26 ml/min; Glucose 112 mg/dL (74-106); Magnesium 2.1 mg/dL (1.6-2.6); Phosphorus 1.5 mg/dL (2.5-4.9); Potassium 3.6 mmol/L (3.5-5.1); Sodium Level 137 mmol/L (136-145)
[2021-11-19] MEDS: buPROPion (XL) 150 MG TABLET.XL PO (10:02)
[2021-11-19] MEDS: Ketorolac 30 MG/ML Syringe IV ×3 (12:53→23:59)
[2021-11-19] MEDS: 0.9% Saline Lock 10 ML Syringe IV (12:53)
[2021-11-19 14:13] VITALS: BP 128/80; PULSE 81; RESP 16; TEMP 37; O2SAT 97
[2021-11-19 20:35] VITALS: BP 138/60; PULSE 75; RESP 18; TEMP 37.2; O2SAT 95
[2021-11-19] MEDS: 0.9% Normal Saline 1,000 ML 75 ML IV (20:39)
[2021-11-20 00:01] VITALS: BP 135/80; PULSE 69; RESP 18; TEMP 36.6; O2SAT 95
[2021-11-20] MEDS: 0.9% Saline Lock 10 ML Syringe IV ×2 (05:13→20:19)
[2021-11-20] MEDS: Ketorolac 30 MG/ML Syringe IV (05:13)
[2021-11-20 05:16] VITALS: BP 124/78; PULSE 70; RESP 18; TEMP 37.1; O2SAT 96
[2021-11-20 08:49] VITALS: BP 131/83; PULSE 78; RESP 16; TEMP 36.8; O2SAT 96
--- NOTE | 2021-11-20 09:02 | PCM.PN.SRG ---
Subjective Subjective Patient seen and examined during AM rounds. He is found resting comfortably in bed. He confirms that he did have return of bowel function yesterday and has done well with his advanced to clear liquids. He denies any nausea with this and states that he continues to pass gas. He also expresses that he is hungry and has clear liquids or not quite satisfying him. Objective Data Objective Data Vital Signs: Vital Signs Temp Pulse Resp BP Pulse Ox 98.2 F 78 16 131/83 H 96 11/20/21 08:49 11/20/21 08:49 11/20/21 08:49 11/20/21 08:49 11/20/21 08:49 Oxygen Flow Rate (L/min) 2 Oxygen Delivery Method Room Air Weight: 151 lb 7.321 oz Body Mass Index (BMI) 23.0 Intake & Output: Intake and Output for Last 24 Hours 11/18/21 11/19/21 11/20/21 23:59 23:59 23:59 Intake Total 2058.33 / 2058.33 / Output Total 1275 / 1275 750 / 750 Balance 783.33 / 783.33 1231.17 / 1231.17 Lab / Micro Data Result Diagrams: 11/19/21 09:15 11/19/21 09:15 Labs: Laboratory Results - last 24 hr 11/19/21 09:15: WBC 4.9, RBC 4.39 L, Hgb 13.0, Hct 38.1 L, MCV 86.8, MCH 29.6, MCHC 34.1, RDW Std Deviation 41.3, RDW Coeff of Denzel 13.2, Plt Count 290, MPV 10.7, Immature Gran % (Auto) 0.400, Neut % (Auto) 60.4, Lymph % (Auto) 20.0, [place] % (Auto) 15.3 H, Eos % (Auto) 3.5, Baso % (Auto) 0.4, Absolute Neuts (auto) 2.9, Absolute Lymphs (auto) 0.97, Nucleated RBC % 0 11/19/21 09:15: Sodium 137, Potassium 3.6, Chloride 106, Carbon Dioxide 25.0, Anion Gap 6, BUN 13, Creatinine 0.61 L, Estim Creat Clear Calc 129.26, Est GFR (MDRD) Af Amer 175, Est GFR (MDRD) Non-Af 145, BUN/Creatinine Ratio 21.3 H, Glucose 112 H, Calcium 7.9 L, Phosphorus 1.5 L, Magnesium 2.1 Physical Exam Const no apparent distress Resp normal respiratory effort GI GI Narrative: Mildly more distended today across the lower quadrants, incisions remain covered with clean/dry operative dressings. Once the port site dressings are removed, the skin edges remain well approximated without signs of drainage or erythema. Patient has mild amount of tenderness across the lower abdomen with palpation Assessment & Plan Assessment/Plan (1) Small bowel obstruction: PLAN: Patient had postoperative small bowel obstruction due to adhesions after right hemicolectomy. He went back to the operating room 11/17/2021 for revision and resection of this area of small bowel and reanastomosis to the colon. ? Advance to full liquid diet with decrease of IV fluid rate to 25 mL/h ? Add Ensure Enlive to supplement nutrition ? Transition to p.o. pain meds including ibuprofen 600 mg as needed and oxycodone 5 mg as needed Richard Olmstead MD General Surgery Endocrine Surgery Pager: [facility] [address] [place] [address], [facility], [address] [place] [address] Office: [phone] Charges/Coding Visit Charges Inpatient E&M: 37656 Subs Hosp L2
[2021-11-20 09:50] VITALS: O2SAT 94
[2021-11-20] MEDS: buPROPion (XL) 150 MG TABLET.XL PO (09:54)
[2021-11-20] MEDS: 0.9% Normal Saline 1,000 ML 25 ML IV (11:19)
[2021-11-20 14:10] VITALS: BP 132/85; PULSE 82; RESP 16; TEMP 36.9; O2SAT 96
[2021-11-20] MEDS: Ondansetron 4 MG/2 ML Vial IV ×2 (14:25→20:19)
[2021-11-20 20:22] VITALS: BP 136/90; PULSE 87; RESP 18; TEMP 36.6; O2SAT 94
--- NOTE | 2021-11-20 20:35 | NURSING ---
Aysha notified of large emesis approx 500cc at this time. new orders to insert NG to LIWS. pt did not tolerate well and was unsuccessful with insertion as resistance was met. Aysha was notified of above
[2021-11-20] MEDS: Benzocaine 20% Metered Spray 57 gm 1 APPLIC MUCOUS MEM (21:06)
[2021-11-21 02:32] VITALS: BP 134/87; PULSE 77; RESP 18; TEMP 36.4; O2SAT 94
[2021-11-21] MEDS: 0.9% Normal Saline 1,000 ML 100 ML IV ×3 (02:35→21:04)
[2021-11-21 06:01] LABS: Absolute Lymphocyte Count 1.16 X10^3/uL (0.83-4.51); Absolute Neutrophil Count 4.6 X10^3/uL (2.0-7.7); Basophil# 0.03 X10^3/uL; Basophil% 0.5 % (0-1); Hematocrit 38.2 % (40-54); Hemoglobin 12.9 g/dL (13.0-16.5); Lymphocyte # 1.16 X10^3/ul (0.83-4.51); Lymphocyte % 17.7 % (19-41); Mean Corp Hgb Conc 33.8 g/dL (32-36); Mean Corpuscular Hgb 29.2 pg (27.0-32.0); Mean Corpuscular Volume 86.4 fL (80-94); Mean Platelet Vol. 10.8 fl (6.2-12.0); Monocyte# 0.54 X10^3/uL; Monocyte% 8.2 % (0-10); NRBC Flagged by Analyzer 0 % (0-5); Neutrophil # 4.62 X10^3/uL (2.7-7.7); Neutrophil % 70.3 % (47-70); Platelet Count 356 K/mm3 (150-450); RBC Distribution Width CV 13.3 % (11.6-14.6); RBC Distribution Width SD 41.6 fl (35.1-43.9); Red Blood Count 4.42 M/mm3 (4.6-6.2); White Blood Count 6.6 K/mm3 (4.4-11.0)
[2021-11-21 06:28] LABS: Anion Gap 8 (5-15); BUN 11 mg/dL (7-18); BUN/Creat Ratio 19.9 RATIO (10-20); Calcium,Total 8.4 mg/dL (8.5-10.1); Chloride 108 mmol/L (98-107); Creatinine, Serum 0.55 mg/dL (0.70-1.30); EST Glomerular Filtration Rate 162 mL/min (>60); Est Glom Filt Rate - Afr Amer 196 mL/min (>60); Estimated Creatinine Clearance 143.36 ml/min; Glucose 96 mg/dL (74-106); Phosphorus 3.2 mg/dL (2.5-4.9); Potassium 3.4 mmol/L (3.5-5.1); Sodium Level 139 mmol/L (136-145)
--- NOTE | 2021-11-21 06:48 | RAD_ITS ---
STUDY: X-RAY - ABDOMEN/PELVIS REASON FOR EXAM: Male, 56 years old. vomiting TECHNIQUE: Single AP view of the abdomen / pelvis. COMPARISON: 11/17/2021 FINDINGS: Normal visualized lung bases. Multiple dilated small bowel loops. Evaluation for free air is limited on supine radiographs. Normal soft tissue structures. Normal visualized osseous structures. RAD/Abdomen Single View (Portable) IMPRESSION: Multiple dilated small bowel loops, differential includes ileus or obstruction. Electronically Signed: Tristian Rose MD at 7:50 EDT ,
[2021-11-21] MEDS: buPROPion (XL) 150 MG TABLET.XL PO (09:12)
[2021-11-21 09:30] VITALS: BP 128/81; PULSE 90; RESP 16; TEMP 36.6; O2SAT 95
[2021-11-21] MEDS: Potassium Chloride 10mEq/100mL 10 MEQ/100 ML IV.SOLN. 100 MEQ IV BOLUS ×2 (10:08→11:52)
[2021-11-21 15:42] VITALS: BP 135/83; PULSE 80; RESP 18; TEMP 36.4; O2SAT 97
[2021-11-21 21:08] VITALS: BP 135/80; PULSE 81; RESP 16; TEMP 36.9; O2SAT 95
[2021-11-22 02:05] VITALS: BP 135/82; PULSE 75; RESP 16; TEMP 36.7; O2SAT 94
--- NOTE | 2021-11-22 05:55 | RAD_ITS ---
STUDY: X-RAY - ABDOMEN/PELVIS REASON FOR EXAM: Male, 56 years old. Ileus TECHNIQUE: 3 views of the abdomen are provided for interpretation. One in the lateral decubitus view. COMPARISON: November 21, 2021 abdomen x-ray FINDINGS: There are persistent distended loops of small bowel with minimal gas within the colon. Findings are still suspicious for ileus versus developing obstruction. RAD/Abd Decub and/or Erect(Portabl IMPRESSION: Ileus versus developing obstruction. Electronically Signed: Teodora Callahan MD at 7:53 EDT Reading Location ID and State: [facility] / [place] Tel , Service support ,
[2021-11-22] MEDS: 0.9% Normal Saline 1,000 ML 100 ML IV (06:10)
[2021-11-22 06:14] LABS: Absolute Neutrophil Count 3.8 X10^3/uL (2.0-7.7); Basophil# 0.05 X10^3/uL; Basophil% 0.8 % (0-1); Eosinophil# 0.31 X10^3/uL; Eosinophils% 5.2 % (0-5); Hematocrit 37.4 % (40-54); Hemoglobin 12.7 g/dL (13.0-16.5); Lymphocyte % 21.9 % (19-41); Mean Corpuscular Hgb 29.1 pg (27.0-32.0); Mean Corpuscular Volume 85.8 fL (80-94); Mean Platelet Vol. 10.5 fl (6.2-12.0); Monocyte# 0.47 X10^3/uL; Monocyte% 7.9 % (0-10); NRBC Flagged by Analyzer 0 % (0-5); Neutrophil # 3.77 X10^3/uL (2.7-7.7); Neutrophil % 63.7 % (47-70); Platelet Count 376 K/mm3 (150-450); RBC Distribution Width CV 12.7 % (11.6-14.6); RBC Distribution Width SD 39.4 fl (35.1-43.9); Red Blood Count 4.36 M/mm3 (4.6-6.2); White Blood Count 5.9 K/mm3 (4.4-11.0)
[2021-11-22 06:34] LABS: Anion Gap 12 (5-15); BUN 9 mg/dL (7-18); BUN/Creat Ratio 15.1 RATIO (10-20); Calcium,Total 8.3 mg/dL (8.5-10.1); Chloride 104 mmol/L (98-107); EST Glomerular Filtration Rate 148 mL/min (>60); Est Glom Filt Rate - Afr Amer 180 mL/min (>60); Estimated Creatinine Clearance 131.42 ml/min; Glucose 73 mg/dL (74-106); Potassium 3.5 mmol/L (3.5-5.1); Sodium Level 136 mmol/L (136-145)
--- NOTE | 2021-11-22 07:48 | PN.SURG_ITS ---
Subjective Subjective Patient reports that he was feeling better yesterday so I started clear liquid diet yesterday afternoon. He did not take much. He says he is passing some flatus and did have another bowel movement overnight. He is not having any nauseousness or vomiting. His abdomen is nontender. Objective Data Objective Data Vital Signs: Vital Signs Temp Pulse Resp BP Pulse Ox 98.1 F 75 16 135/82 H 94 11/22/21 02:05 11/22/21 02:05 11/22/21 02:05 11/22/21 02:05 11/22/21 02:05 Oxygen Flow Rate (L/min) 2 Oxygen Delivery Method Room Air Weight: 151 lb 7.321 oz Body Mass Index (BMI) 23.0 Intake & Output: Intake and Output for Last 24 Hours 11/20/21 11/21/21 11/22/21 23:59 23:59 23:59 Intake Total 1799.58 / 1799.58 2874.59 / 3174.59 1410 / 1410 Output Total 1000 / 1000 Balance 799.58 / 799.58 2874.59 / 3174.59 1410 / 1410 Lab / Micro Data Result Diagrams: 11/22/21 05:43 11/22/21 05:43 Labs: Laboratory Results - last 24 hr 11/22/21 05:43: WBC 5.9, RBC 4.36 L, Hgb 12.7 L, Hct 37.4 L, MCV 85.8, MCH 29.1, MCHC 34.0, RDW Std Deviation 39.4, RDW Coeff of Denzel 12.7, Plt Count 376, MPV 10.5, Immature Gran % (Auto) 0.500, Neut % (Auto) 63.7, Lymph % (Auto) 21.9, [place] % (Auto) 7.9, Eos % (Auto) 5.2 H, Baso % (Auto) 0.8, Absolute Neuts (auto) 3.8, Absolute Lymphs (auto) 1.30, Nucleated RBC % 0 11/22/21 05:43: Sodium 136, Potassium 3.5, Chloride 104, Carbon Dioxide 20.0 L, Anion Gap 12, BUN 9, Creatinine 0.60 L, Estim Creat Clear Calc 131.42, Est GFR (MDRD) Af Amer 180, Est GFR (MDRD) Non-Af 148, BUN/Creatinine Ratio 15.1, G lucose 73 L, Calcium 8.3 L Radiography Diagnostic Testing: Radiology Impression KUB X-Ray 11/21/21 06:48 IMPRESSION: Multiple dilated small bowel loops, differential includes ileus or obstruction. Electronically Signed: Tristian Rose MD at 7:50 EDT , Physical Exam Const oriented x3 and no apparent distress Resp normal respiratory effort Cardio regular rate and regular rhythm GI soft to palpation and non-tender Assessment & Plan Assessment/Plan (1) Postoperative ileus: PLAN: Patient seems less distended this morning. Patient reports that he did pass some gas and he did have another bowel movement. If he takes in a more significant amount of clear liquids I will advance his diet. Everett Jason MD Pager: [facility] [address] [place] [address], [address] [place] [address] Office:
[2021-11-22 08:03] VITALS: BP 118/81; PULSE 86; RESP 18; TEMP 36.6; O2SAT 96
[2021-11-22] MEDS: buPROPion (XL) 150 MG TABLET.XL PO (08:13)
[2021-11-22 14:00] VITALS: BP 136/81; PULSE 87; RESP 18; TEMP 37.1; O2SAT 97
[2021-11-22 19:46] VITALS: BP 131/78; PULSE 87; RESP 15; TEMP 36.7; O2SAT 97
[2021-11-23 02:19] VITALS: BP 113/72; PULSE 79; RESP 15; TEMP 36.9; O2SAT 96
--- NOTE | 2021-11-23 07:26 | PCM.DC.SUM ---
Providers Date of Admission: 11/16/21 Primary Care Physician: Dr. Sven Mar MD Reason For Visit: POSTOPERATIVE ILEUS Diagnosis Discharge Diagnosis (1) Postoperative ileus: Status: Acute Code(s): K91.89 - Other postprocedural complications and disorders of digestive system; K56.7 - Ileus, unspecified Medications at Discharge Home Medications methylphenidate HCl [Concerta] 72 mg PO DAILY 04/16/14 cholecalciferol (vitamin D3) [Vitamin D3] 1,000 unit PO DAILY 02/11/18 bupropion HCl 150 mg 24 hr tablet, extended release 150 mg PO DAILY tab 11/01/21 acetaminophen 650 mg PO Q6 PRN #0 tab 11/11/21 ibuprofen 600 mg PO Q6H PRN PRN #0 tab 11/11/21 Hospital Course Operations colectomy Summary of Care Provided Hospital Course: Patient was removed with a bowel obstruction all week after having a right hemicolectomy. After small bowel follow-through he was taken for surgery and had a laparoscopy converted to laparotomy with reexcision of the distal small bowel and anastomosis with new anastomosis. After this he was slowly advanced on his diet and tolerated this well and once he was tolerating a regular diet he was discharged home. Physical Exam Const oriented x3 and no apparent distress Resp normal respiratory effort Cardio regular rate GI normal to inspection, nondistended, normoactive bowel sounds Weight / BMI Weight Weight: 151 lb 7.321 oz Body Mass Index (BMI) 23.0 ABG / Lab / Microbiology Data Result Diagrams: 11/22/21 05:43 11/22/21 05:43 Radiography Diagnostic Testing: Radiology Impression Abdomen X-Ray 11/22/21 05:55 IMPRESSION: Ileus versus developing obstruction. Electronically Signed: Teodora Callahan MD at 7:53 EDT Reading Location ID and State: [facility] / [place] Tel , Service support , D/C Instructions Discharge Diet: Light diet - advance as tolerated Discharge Activity: May Drive and May Shower Lifting Restrictions: 10 lbs for 4 weeks Call your doctor if your incision/area has: Continuous Slow Oozing, Sudden Increased Bleeding, Increased Pain/ Swelling, Increased Redness, Foul Smelling Discharge and Swelling at the incision site Call your doctor if you observe: Fever of 101 or Higher Remove Dressing in: 2 days (Remove steri strips in 7-10 days) Cleanse incision/area with: Soap & Water Please Follow Up With: Everett Jason MD When: Please call to schedule 1 week follow up appointment. [phone] Meaningful Use Info Meaningful Use Diagnoses (Choose all that apply): None applicable Discharge Plan Admission Admit Date/Time: 11/16/21 09:07 Attending Provider: Everett Jason Primary Care Provider: Sven Mar Discharge Orders/Prescriptions Prescriptions: Continued bupropion HCl 150 mg tablet extended release 24 hr 150 mg PO DAILY RF: 0 methylphenidate HCl [Concerta] 36 MG tablet extended release 24hr 72 mg PO DAILY RF: 0 cholecalciferol (vitamin D3) [Vitamin D3] 1,000 UNIT tablet 1,000 unit PO DAILY RF: 0 acetaminophen 500 mg Tablet 650 mg PO Q6 PRN (Reason: Abdominal Pain) Qty: 0 RF: 0 ibuprofen 600 mg Tablet 600 mg PO Q6H PRN PRN (Reason: Pain Score 4-10) Qty: 0 RF: 0 Referrals / Follow Up: Sven Mar MD [Primary Care Provider] - Disposition Disposition (needs filled in before D/C Order can be placed): Home, Self Care
[2021-11-23 08:30] VITALS: BP 110/78; PULSE 112; RESP 16; TEMP 36.4; O2SAT 97
== END 2021-11-23 08:45 | disposition home or self-care (01) | DRG 330 ==
LOC: ED 23:47 → MS3 11-16 01:12
PROVIDERS: Admitting Provider Surgery; Emergency Provider Emergency Medicine; PCP Family Medicine; Visit Provider Surgery
PROC: 0DB80ZZ Excision of Small Intestine, Open Approach (ICD-10-PCS; CPT 49320; principal; 2021-11-17 13:45)
DX: K91.89 Other postprocedural complications and disorders of digestive system (principal); K56.50 Intestinal adhesions [bands], unspecified as to partial versus complete obstruction; F41.9 Anxiety disorder, unspecified; F90.9 Attention-deficit hyperactivity disorder, unspecified type; Z86.16 Personal history of COVID-19; F32.A Depression, unspecified; Z86.010 Personal history of colon polyps; Z53.31 Laparoscopic surgical procedure converted to open procedure
CPT/HCPCS: 36415; 74018; 74019; 74177; 74250; 80048; 80053; 81001; 83605; 83735; 84100; 84484; 85025; 88307; 93005; 99251; 99284; J7030; J7050; J7120; Q9967; A4216; G0463; J2405

== ENCOUNTER → 2022-11-06 | Outpatient (CLI) | payer BC, SELFPAY ==
[2022-11-06 10:22] LABS: Color, Urine Yellow (Yellow); Glucose, Dipstick Normal (Normal); Ketone-Dipstick 5 mg/dl (Negative); Leukocyte Esterase-Dipstick 500 /ul (Negative); Nitrite-Dipstick Negative (Negative); Occult Blood-Urine 250 /ul (Negative); Protein-Dipstick 100 mg/dl (Negative); Urine Bilirubin Dipstick Negative (Negative); Urine Clarity Clear (Clear); Urine Urobilinogen Normal (Normal)
[2022-11-06 10:26] LABS: Vitamin D,25 Hydroxy 41.5 ng/mL
[2022-11-06 10:44] LABS: Anion Gap 4 (5-15); BUN 18 mg/dL (7-18); BUN/Creat Ratio 19.1 RATIO (10-20); Calcium,Total 8.7 mg/dL (8.5-10.1); Chloride 111 mmol/L (98-107); Cholesterol 137 mg/dL (200); Creatinine, Serum 0.94 mg/dL (0.70-1.30); EST Glomerular Filtration Rate 87 mL/min (>60); Est Glom Filt Rate - Afr Amer 106 mL/min (>60); Glucose 103 mg/dL (74-106); High Density Lipoprotein 44 mg/dL; PSA,Total - Annual Screen 2.25 ng/mL (0.00-4.00); Potassium 3.6 mmol/L (3.5-5.1); Sodium Level 137 mmol/L (136-145); Triglycerides 61 mg/dL; Very Low Density Lipoprotein 12 mg/dL (5-40)
== END | disposition home or self-care (01) ==
LOC: MTLAB 07:08
PROVIDERS: PCP Family Medicine; Referring Provider Family Medicine; Visit Provider Family Medicine
DX: Z00.00 Encounter for general adult medical examination without abnormal findings (principal); E55.9 Vitamin D deficiency, unspecified; Z12.5 Encounter for screening for malignant neoplasm of prostate; Z13.220 Encounter for screening for lipoid disorders; Z13.1 Encounter for screening for diabetes mellitus
CPT/HCPCS: 36415; 80048; 80061; 81002; 82306; 84153; G0103

== ENCOUNTER 2023-10-04 05:20 | Emergency (ER) | payer BC, SELFPAY ==
[2023-10-04 05:24] VITALS: BP 155/91; PULSE 85; RESP 18; TEMP 36.6; O2SAT 98; BMI 22.6
--- NOTE | 2023-10-04 05:39 | CT_ITS ---
INDICATION: left flank pain EXAMINATION: CT ABDOMEN AND PELVIS WITHOUT CONTRAST - CT Abdomen And Pelvis W/O Contrast Injection TECHNIQUE: Helically acquired images were obtained of the abdomen and pelvis without oral or IV contrast. A radiation dose optimization technique was used for this scan. IV Contrast dosage and agent: None. Oral contrast: None. RADIATION DOSAGE (If Supplied By Facility): CTDIvol = ( 6.14 ) mGy, DLP = ( 294.57 ) mGycm COMPARISON: No relevant prior comparison study available FINDINGS: LOWER CHEST: Linear bibasilar atelectasis. No cardiomegaly or pericardial effusion. LIVER: The liver is normal in size, shape, and attenuation. No focal mass. GALLBLADDER AND BILIARY TREE: The gallbladder is normally distended. No gallstones. No gallbladder wall thickening or edema. No intra- or extrahepatic biliary ductal dilation. PANCREAS: No focal cystic or solid mass. SPLEEN: Normal size without focal cystic or solid mass. Multiple calcified granulomas noted. ADRENAL GLANDS: No nodules. KIDNEYS AND URETERS: Normal renal size and position. There is mild left hydroureteronephrosis. There is a mid ureteral 0.3 cm calculus identified at the L4 level. Prominent calculus in the left renal pelvis which measures 1.4 cm. This is 10 cm from the posterior axillary line and measures 920 Hounsfield units. There is also moderate right hydronephrosis with a 1.9 cm calculus in the renal pelvis at the ureteropelvic junction. This measures 922 Hounsfield units. At least 2 additional right renal calculi are seen. The right ureter is decompressed. PERITONEUM: No ascites or free air. No other fluid collection. BOWEL: Small hiatal hernia. The stomach is otherwise unremarkable. Normal caliber small bowel. There is no obstruction. Right hemicolectomy. Enterocolic anastomosis at the midabdomen anteriorly. Diffuse colonic diverticulosis without diverticulitis. Moderate colonic stool burden. LYMPH NODES: No enlarged mesenteric or retroperitoneal lymph nodes. VESSELS: Aorta is non-dilated. URINARY BLADDER: Unremarkable. REPRODUCTIVE ORGANS: No pelvic masses. ABDOMINAL WALL: No discrete abdominal or pelvic wall hernia. BONES: No acute or suspicious osseous abnormality. CT/Abdomen/Pelvis without Cont IMPRESSION: Mild left hydroureteronephrosis with a mid ureteral calculus measuring 0.3 cm seen. Moderate right hydronephrosis with a prominent calculus at the ureteropelvic junction. Multiple additional bilateral renal calculi seen. Electronically Signed: Bobby Castillo MD at 6:40 EDT ,
[2023-10-04 05:48] LABS: Mucous, Urine 0 SEEN /hpf (<or=2+); Squamous Epithelial Cells - UA 0 SEEN /hpf (0-5)
[2023-10-04 05:49] LABS: Absolute Lymphocyte Count 1.83 X10^3/uL (0.83-4.51); Absolute Neutrophil Count 6.9 X10^3/uL (2.0-7.7); Basophil# 0.05 X10^3/uL; Basophil% 0.5 % (0-1); Eosinophil# 0.11 X10^3/uL; Eosinophils% 1.2 % (0-5); Hematocrit 47.2 % (40-54); Hemoglobin 15.3 g/dL (13.0-16.5); Lymphocyte # 1.83 X10^3/ul (0.83-4.51); Lymphocyte % 19.4 % (19-41); Mean Corp Hgb Conc 32.4 g/dL (32-36); Mean Corpuscular Hgb 28.7 pg (27.0-32.0); Mean Corpuscular Volume 88.4 fL (80-94); Mean Platelet Vol. 10.6 fl (6.2-12.0); Monocyte# 0.56 X10^3/uL; Monocyte% 5.9 % (0-10); NRBC Flagged by Analyzer 0 % (0-5); Neutrophil # 6.86 X10^3/uL (2.7-7.7); Neutrophil % 72.6 % (47-70); Platelet Count 281 K/mm3 (150-450); RBC Distribution Width CV 13.2 % (11.6-14.6); RBC Distribution Width SD 42.7 fl (35.1-43.9); Red Blood Count 5.34 M/mm3 (4.6-6.2); White Blood Count 9.5 K/mm3 (4.4-11.0)
--- OUTSIDE RECORDS SUMMARY | 2023-10-04 05:49 | XMS RPT_ITS | CCD ---
Author Name Unknown Address [address] [place] [address] Organization [facility] Care Team Providers Care Childcare Director Name Role Phone KAYCE SCALES, DR GALLEGO Primary Care Physician Allergies Allergy Classification Reported Allergen(s) Allergy Type Date of Onset Reaction(s) Facility (1 source) Sulfamethoxazole; Translations: [sulfamethoxazole ] Drug Allergy [facility] Medications Current Medications Medication Drug Class(es) Dates Sig (Normalized) Sig (Original) 24 hr methylphenidate hydrochloride 27 mg extended release oral tablet (1 source) Central Nervous System Stimulant Start: 10-15-2015 take 1 tablet by mouth every hour, then take 1 tablet by mouth once daily in the morning Concerta 27 mg/24 hr oral tablet, extended release Dose : 27 mg = 1 tab(s), Oral, qAM, 0 Refill(s) Start Date: 10/15/15 Status: Ordered Results Test Name Value Interpretation Reference Range Facil ity Vital Signs Date Time Vital Sign Value Performing Clinician Faci lity 08-08-2021 11:41-0500 Diastolic Blood Pressure NBP [address] NEHA VAZQUEZ MD [facility] 08-08-2021 11:41-0500 Heart rate 74 /min DR NEHA VAZQUEZ MD [facility] 08-08-2021 11:41-0500 Respiratory rate 18 /min DR NEHA VAZQUEZ MD [facility] 08-08-2021 11:41-0500 Systolic Blood Pressure NBP [address] NEHA VAZQUEZ MD [facility] 08-08-2021 11:32-0500 Diastolic Blood Pressure NBP [address] NEHA VAZQUEZ MD [facility] 08-08-2021 11:32-0500 Heart rate 78 /min DR NEHA VAZQUEZ MD [facility] 08-08-2021 11:32-0500 Respiratory rate 12 /min DR NEHA VAZQUEZ MD [facility] 08-08-2021 11:32-0500 Systolic Blood Pressure NBP [address] NEHA VAZQUEZ MD [facility] 08-08-2021 11:18-0500 Diastolic Blood Pressure NBP [address] NEHA VAZQUEZ MD [facility] 08-08-2021 11:18-0500 Respiratory rate 13 /min DR NEHA VAZQUEZ MD [facility] 08-08-2021 11:18-0500 Systolic Blood Pressure NBP [address] NEHA VAZQUEZ MD [facility] 08-08-2021 11:09-0500 Heart rate 95 /min DR NEHA VAZQUEZ MD [facility] 08-08-2021 11:04-0500 Body temperature 97.34 [degF] DR NEHA VAZQUEZ MD [facility] 08-08-2021 11:04-0500 Heart rate 99 /min DR NEHA VAZQUEZ MD [facility] 08-08-2021 08:23-0500 Body height [address] NEHA VAZQUEZ MD [facility] 08-08-2021 08:23-0500 Body temperature 95.9 [degF] DR NEHA VAZQUEZ MD [facility] 08-08-2021 08:23-0500 Body weight 70.[address] NEHA VAZQUEZ MD [facility] 08-08-2021 08:23-0500 Body weight 23.83 kg/m2 DR NEHA VAZQUEZ MD [facility] 08-08-2021 08:23-0500 diastolic 98 mm[Hg] DR NEHA VAZQUEZ MD [facility] 08-08-2021 08:23-0500 Heart rate 89 /min DR NEHA VAZQUEZ MD [facility] 08-08-2021 08:23-0500 systolic 127 mm[Hg] DR NEHA VAZQUEZ MD [facility] Encounters Encounter Date Encounter Type Care Provider Facility Start: 08-08-2021 End: 08-08-[address] NEHA VAZQUEZ MD [facility] Procedures Date Procedure Procedure Detail Performing Clinician Start: 10-18-[address] NEHA VAZQUEZ MD Appendectomy DR NEHA BACON MD Extracorporeal shock wave lithotripsy of the bile duct DR NEHA VAZQUEZ MD Tonsillectomy and adenoidectomy DR NEHA VAZQUEZ MD Social History Date Type Detail Facility Start: 08-08-2021 Never smoked t obacco (finding) [facility] Sex Assigned At [facility] Evaluation + Plan note 08-08-2021 Note Date & Type Note Facility [place] ADMISSION HISTORY A ND PHYSICIAL CHIEF COMPLAINT: HISTORY OF PRESENT ILLNESS: REVIEW OF SYSTEMS: ACTIVE PROBLEMS: No qualifying data available for Problems MEDICATIONS: Active Inpt Meds: None Active PRN Meds: None One Time Meds: None Active IV Meds: Lactated Ringers Infusion 1,000 mL (LR 1,000 mL) Start: 08/08/21 8:18:00 EST, Rate: 50 mL/hr ALLERGIES: (1) sulfamethoxazole FAMILY HISTORY: SOCIAL HISTORY: PHYSICAL EXAM: VITALS: [id number](kg) 08/08 08:[id number]/17 70.5 24 Hr Tmax: 35.5 at 08/08 08:23 36 Hr Tmax: 35.5 at 08/08 08:23 Vital Signs are the last 5 in the past 48 hours. Weights display the last 5 within 7 days. Initial Wt: 08/08 70.5 kg 155 lb Current Wt: 08/08 70.5 kg 155 lb GENERAL: HEENT: CARDIOVASCULAR: RESPIRATORY: ABDOMEN: EXREMETIES: NEUROLOGICAL: PSYCHIATRIC: LABS: No 36hr Lab Data DIAGNOSTICS: IMPRESSION: PLAN: History and Physical Update I have examined the patient; reviewed the H&P and there are no changes to the H&P unless noted below. [facility] Discharge instructions 08-08-2021 Note Date & Type Note Facility 08-08-2021 Hospital Discharg e instructions Patient Education 08/08/2021 11:14:28 Moderate Conscious Sedation, Adult, Care After Moderate Conscious Sedation, Adult, Care After These instructions provide you with information about caring for yourself after your procedure. Your health care provider may also give you more specific instructions. Your treatment has been planned according to current medical practices, but problems sometimes occur. Call your health care provider if you have any problems or questions after your procedure. What can I expect after the procedure? After your procedure, it is common: To feel sleepy for several hours. To feel clumsy and have poor balance for several hours. To have poor judgment for several hours. To vomit if you eat too soon. Follow these instructions at home: For at least 24 hours after the procedure: Do not: ?Participate in activities where you could fall or become injured. ?Drive. ?Use heavy machinery. ?Drink alcohol. ?Take sleeping pills or medicines that cause drowsiness. ?Make important decisions or sign legal documents. ?Take care of children on your own. Rest. Eating and drinking Follow the diet recommended by your health care provider. If you vomit: ?Drink water, juice, or soup when you can drink without vomiting. ?Make sure you have little or no nausea before eating solid foods. General instructions Have a responsible adult stay with you until you are awake and alert. Take teyp-yub-nlzevgc and prescription medicines only as told by your health care provider. If you smoke, do not smoke without supervision. Keep all follow-up visits as told by your health care provider. This is important. Contact a health care provider if: You keep feeling nauseous or you keep vomiting. You feel light-headed. You develop a rash. You have a fever. Get help right away if: You have trouble breathing. This information is not intended to replace advice given to you by your health care provider. Make sure you discuss any questions you have with your health care provider. Document Released: 04/29/2014 Document Revised: 06/21/2018 Document Reviewed: 10/28/2016 Elsevier Patient Education 2020 [employer]. 08/08/2021 11:13:53 Colonoscopy, Adult, Care After, Zwku-st-Emsw Colonoscopy, Adult, Care After This sheet gives you information about how to care for yourself after your procedure. Your doctor may also give you more specific instructions. If you have problems or questions, call your doctor. What can I expect after the procedure? After the procedure, it is common to have: A small amount of blood in your poop for 24 hours. Some gas. Mild cramping or bloating in your belly. Follow these instructions at home: General instructions For the first 24 hours after the procedure: ?Do not drive or use machinery. ?Do not sign important documents. ?Do not drink alcohol. ?Do your daily activities more slowly than normal. ?Eat foods that are soft and easy to digest. Take oekl-njg-eetpeua or prescription medicines only as told by your doctor. To help cramping and bloating: Try walking around. Put heat on your belly (abdomen) as told by your doctor. Use a heat source that your doctor recommends, such as a moist heat pack or a heating pad. ?Put a towel between your skin and the heat source. ?Leave the heat on for 20 30 minutes. ?Remove the heat if your skin turns bright red. This is especially important if you cannot feel pain, heat, or cold. You can get burned. Eating and drinking Drink enough fluid to keep your pee (urine) clear or pale yellow. Return to your normal diet as told by your doctor. Avoid heavy or fried foods that are hard to digest. Avoid drinking alcohol for as long as told by your doctor. Contact a doctor if: You have blood in your poop (stool) 2 3 days after the procedure. Get help right away if: You have more than a small amount of blood in your poop. You see large clumps of tissue (blood clots) in your poop. Your belly is swollen. You feel sick to your stomach (nauseous). You throw up (vomit). You have a fever. You have belly pain that gets worse, and medicine does not help your pain. Summary After the procedure, it is common to have a small amount of blood in your poop. You may also have mild cramping and bloating in your belly. For the first 24 hours after the procedure, do not drive or use machinery, do not sign important documents, and do not drink alcohol. Get help right away if you have a lot of blood in your poop, feel sick to your stomach, have a fever, or have more belly pain. This information is not intended to replace advice given to you by your health care provider. Make sure you discuss any questions you have with your health care provider. Document Released: 08/11/2011 Document Revised: 05/09/2018 Document Reviewed: 04/02/2017 [employer] Patient Education 2020 [employer]. 08/08/2021 11:13:48 Colon Biopsy, Care After Colon Biopsy, Care After This sheet gives you information about how to care for yourself after your procedure. Your health care provider may also give you more specific instructions. If you have problems or questions, contact your health care provider. What can I expect after the procedure? After the procedure, it is common to have: A small amount of blood in your stool for 24 hours after the procedure. Some gas. Mild cramping or bloating in your abdomen. Follow these instructions at home: General instructions For the first 24 hours after the procedure: ?Do not drive or use machinery. ?Do not sign important documents. ?Do not drink alcohol. ?Do your regular daily activities at a slower pace than normal. ?Eat soft, jheh-fb-hydgow foods. ?Rest often. Take oqhz-nhv-ludnooh or prescription medicines only as told by your health care provider. Keep all follow-up visits as told by your health care provider. This is important. Relieving cramping and bloating Try walking around when you have cramps or feel bloated. Put heat on your abdomen as told by your health care provider. Use a heat source that your health care provider recommends, such as a moist heat pack or a heating pad. ?Place a towel between your skin and the heat source. ?Leave the heat on for 20 30 minutes. ?Remove the heat if your skin turns bright red. This is especially important if you are unable to feel pain, heat, or cold. You may have a greater risk of getting burned. Eating and drinking Drink enough fluid to keep your urine pale yellow. Return to your normal diet as instructed by your health care provider. Avoid heavy or fried foods that are hard to digest. Avoid drinking alcohol for as long as told by your health care provider. Contact a health care provider if: You have blood in your stool 2 3 days after the procedure. Get help right away if: You have more than a small spotting of blood in your stool. You pass large blood clots in your stool. Your abdomen is swollen. You have nausea or vomiting. You have a fever. You have increasing abdominal pain that is not relieved with medicine. Summary After the procedure, it is common to have mild cramping and bloating in the abdomen. Do not drive for 24 hours after the procedure. Try walking around when you have cramps or feel bloated. This information is not intended to replace advice given to you by your health care provider. Make sure you discuss any questions you have with your health care provider. Document Released: 12/18/2017 Document Revised: 06/21/2018 Document Reviewed: 12/18/2017 [employer] Patient Education [employer]. Follow Up Care 07/12/2021 15:09:59 With:NEHA VAZQUEZ MD Address: [phone] When: Unknown Comments:OFFICE WILL CALL WITH PATHOLOGY RESULTS IN 7-10 DAYS. RETURN FOR ANOTHER COLONOSCOPY IN 6-12 MONTHS. NO NSAIDS FOR 5 DAYS, TYLENOL ONLY FOR PAIN. [facility] Hospital course Narrative Note Date & Type Note Facility Hospital course Narrative No data available for this section [facility] Summary Purpose Family History No Family History Records FoundNo Family History Records Found Advance Directives No Advanced Directives Records FoundNo Advanced Directives Records Found Additional Source Comments (unrecognized sect ion and content) No Status Records FoundNo Status Records Found INFORMATION SOURCE (unrecogn ized section and content) DATE CREATED AUTHOR AUTHOR'S ORGANIZ ATION 10/14/2021 [facility] FOR RECORDS PERTAINING TO PATIENTS WHO ARE OR HAVE BEEN ENROLLED IN A CHEMICAL DEPENDENCY/SUBSTANCEABUSE PROGRAM, SOME INFORMATION MAY BE OMITTED. This clinical summary was aggregated from multiple sources. Caution should be exercised in using it in the provision of clinical care. This summary normalizes information from multiple sources, and as a consequence, information in this document may materially change the coding, format and clinical context of patient data. In addition, data may be omitted in some cases. CLINICAL DECISIONS SHOULD BE BASED ON THE PRIMARY CLINICAL RECORDS. [facility]. provides no warranty or guarantee of the accuracy or completeness of information in this document.
[2023-10-04 05:50] LABS: Color, Urine Yellow (Yellow); Glucose, Dipstick Normal (Normal); Ketone-Dipstick 5 mg/dl (Negative); Leukocyte Esterase-Dipstick 500 /ul (Negative); Nitrite-Dipstick Negative (Negative); Occult Blood-Urine 250 /ul (Negative); Protein-Dipstick 30 mg/dl (Negative); Specific Gravity, Urine 1.025 (1.002-1.030); Urine Clarity Clear (Clear); Urine Urobilinogen 1 mg/dl (Normal)
[2023-10-04] MEDS: 0.9% Normal Saline (1000mL) 1,000 ML 999 ML IV (05:53)
[2023-10-04] MEDS: Ketorolac 30 MG/ML Syringe IV (05:54)
[2023-10-04] MEDS: Ondansetron 4 MG/2 ML Vial IV (05:54)
[2023-10-04 06:03] LABS: Anion Gap 7 (5-15); BUN 24 mg/dL (7-18); BUN/Creat Ratio 13.1 RATIO (10-20); Calcium,Total 8.5 mg/dL (8.5-10.1); Chloride 107 mmol/L (98-107); Creatinine, Serum 1.83 mg/dL (0.70-1.30); EST Glomerular Filtration Rate 41 mL/min (>60); Est Glom Filt Rate - Afr Amer 49 mL/min (>60); Estimated Creatinine Clearance 41.43 ml/min; Glucose 111 mg/dL (74-106); Potassium 3.9 mmol/L (3.5-5.1); Sodium Level 140 mmol/L (136-145)
[2023-10-04 06:05] LABS: Bacteria 3+ /hpf (None Seen); Red Blood Cells-Urine > 100 SEEN /hpf (0-5); Renal Epithelial Cells 0 SEEN /hpf (0-5); Transitional Epithelial - Ur 0 SEEN /hpf (0-5); Urine Bilirubin Dipstick 1 mg/dL (Negative); White Blood Cells >100 SEEN /hpf (0-5)
[2023-10-04] MEDS: Ceftriaxone 1 GM/50 ML BAG IV (06:57)
[2023-10-04 07:21] VITALS: BP 134/84
--- NOTE | 2023-10-04 07:43 | EX.ED.DYSGE1 ---
HPI History of Present Illness Chief Complaint: Flank Pain Informant: patient Narrative Narrative: Patient is a 58-year-old male with history of ADHD and depression as well as previous colectomy and also remote history of kidney stones. He states that last night he noticed bilateral flank pain which was greatest on the left that came on while sleeping. He states that this feels similar nature to his previous kidney stone. He denies any dysuria or hematuria he denies any recent trauma or excessive activity. He states in the past his stones have been so large as they needed lithotripsy . He has concern for this once again and therefore comes in for evaluation [facility] Medical History ADHD Anxiety Colon polyp COVID Depression Hemorrhoids High grade dysplasia in colonic adenoma Non-smoker Stone, kidney Home Medications methylphenidate HCl 36 mg tablet,extended release 24 hr (Concerta) 72 mg PO DAILY ADHD 04/16/14 [History Last Taken Unknown] cholecalciferol (vitamin D3) 25 mcg (1,000 unit) tablet (Vitamin D3) 1,000 unit PO DAILY SUPPLEMENT 02/11/18 [History Last Taken Unknown] bupropion HCl 150 mg 24 hr tablet, extended release 150 mg PO DAILY mental health 11/01/21 [History Last Taken Unknown] acetaminophen 500 mg tablet 650 mg (1.3 x 500 mg) PO Q6 PRN Abdominal Pain #0 tabs 11/11/21 [Rx Last Taken Unknown] ibuprofen 600 mg tablet 600 mg PO Q6H PRN PRN Pain Score 4-10 #0 tabs 11/11/21 [Rx Last Taken Unknown] cephalexin 500 mg capsule 500 mg PO TID 7 days #21 caps 10/04/23 [Rx Last Taken Unknown] ketorolac 10 mg tablet 10 mg PO 4X/DAY PRN PRN pain 5 days #20 tabs 10/04/23 [Rx Last Taken Unknown] ondansetron 4 mg disintegrating tablet 4 mg PO TID PRN nausea and vomiting #21 tabs 10/04/23 [Rx Last Taken Unknown] oxycodone-acetaminophen 5 mg-325 mg tablet (Percocet) 1 tab PO Q6H PRN pain 3 days #12 tabs 10/04/23 [Rx Last Taken Unknown] tamsulosin 0.4 mg capsule (Flomax) 0.4 mg PO DAILY #14 caps 10/04/23 [Rx Last Taken Unknown] Allergy/AdvReac Type Severity Reaction Status Date / Time Sulfa (Sulfonamide Allergy Unknown Verified 10/04/23 05:30 Antibiotics) Family History Mother Diabetes Cancer skin Father Diabetes Thyroid disorder Surgical History H/O right hemicolectomy History of colonoscopy History of lithotripsy S/P appendectomy S/P tonsillectomy Social History Smoking Status: Never smoker alcohol intake: current ROS ROS ED Constitutional Constitutional ED: Denies chills or fever(s) ENT ENT ED: Denies sore throat Cardiovascular Cardiovascular: Denies chest pain Respiratory/Chest Respiratory/Chest: Denies cough or dyspnea Gastrointestinal Gastrointestinal: Reports abdominal pain and nausea; Denies diarrhea or vomiting Genitourinary Genitourinary ED: Reports other Details: Positive flank pain ; Denies dysuria Musculoskeletal Musculoskeletal: Reports back pain; Denies myalgias Integumentary Denies rash Neurologic Neurologic: Denies headache(s) Hematologic/Lymphatic Hematologic/Lymphatic: Denies easy bleeding or easy bruising EXAM Physical Exam Const Vital Signs: 10/04/23 05:24 10/04/23 07:21 Temperature 97.9 F Temperature Source Temporal Pulse Rate 85 Respiratory Rate 18 Blood Pressure 155/91 H 134/84 H Blood Pressure Mean 112 100 Pulse Ox 98 Oxygen Delivery Method Room Air Positive well nourished and well developed General Appearance ED: well developed; Negative for pallor HEENT HEENT Narrative: Normocephalic atraumatic Eyes PERRL and EOMs intact bilaterally General Eye ED: Negative for scleral icterus Neck supple Resp normal respiratory effort and clear to auscultation bilaterally Cardio regular rate and regular rhythm Rate: other Other Details: Heart is regular rate and rhythm without murmurs rubs or gallops Radial and carotid pulses are equal and symmetric GI non-distended GI Narrative: Abdomen is soft and nondistended with normal active bowel sounds. Patient has mild pain to palpation along the left mid to upper abdomen without voluntary guarding or rigidity No pulsatile mass or fluid wave Auscultation: normoactive bowel sounds Palpation: soft Back/Spine Back/Spine Narrative: Positive bilateral CVA pain Extremity normal to inspection Neuro oriented x3, CN's II-XII intact bilaterally and no sensory deficits noted Sensorium / Orientation: alert Motor Exam: strength 5/5 throughout Psych mental status grossly normal Skin no rashes or lesions noted General Skin Exam: Negative for jaundice or pallor MDM MDM MDM Narrative Medical decision making narrative: Patient presented to the ER hypertensive but otherwise with stable vitals. History and exam is concerning for kidney stone versus pyelonephritis versus acute kidney injury versus electrolyte abnormality. Patient blood work was obtained based on his history and exam pointing towards kidney stone as the main cause of his symptoms. Labs showed no leukocytosis but I did show large amount of blood white blood cells and bacteria in the urine sample concerning for UTI and kidney stone. Moreover the patient's creatinine does correlate with acute kidney injury as his baseline is 0.6 and today his creatinine is reading 1.83. CT scan showed 0.3 cm stone in the left ureter with mild hydronephrosis and then a 1.9 centimeters stone in the right kidney at the renal pelvis in your vesicular junction causing moderate hydronephrosis. The patient does not have signs of urosepsis but with his infection and 2 stones leading to obstruction and hydronephrosis and acute kidney injury I do feel he would benefit from inpatient treatment. Urology is not on-call at this time however. Therefore the case was reached out to [facility] and [facility] to discuss the case with urology and get their opinion on whether patient should be admitted to their facility or not. Unfortunately I could not reach a urologist and the patient is becoming frustrated with being in the hospital and states he wishes to go home at this time. He is not uroseptic and his pain is controlled in the ER. The 1 issue we talked about is that he is showing signs of acute kidney injury with his creatinine going from his baseline of 0.6-1.8. Patient states that he has had large stones like this in the past and has always been able to deal with them on an outpatient basis. Therefore I will place the patient on antibiotics as well as pain medication and Flomax and he will follow-up with urology as an outpatient or return to the ER if his symptoms worsen or fail to improve History & Record Review Discussion w/independent historian: Patient Lab Data Attestation: I reviewed the patient's lab results. Labs: Laboratory Results - last 24 hr 10/04/23 10/04/23 05:30 05:35 WBC 9.5 RBC 5.34 Hgb 15.3 Hct 47.2 MCV 88.4 MCH 28.7 MCHC 32.4 RDW Std Deviation 42.7 RDW Coeff of Denzel 13.2 Plt Count 281 MPV 10.6 Immature Gran % (Auto) 0.400 Neut % (Auto) 72.6 H Lymph % (Auto) 19.4 Mitchell % (Auto) 5.9 Eos % (Auto) 1.2 Baso % (Auto) 0.5 Absolute Neuts (auto) 6.9 Absolute Lymphs (auto) 1.83 Nucleated RBC % 0 Sodium 140 Potassium 3.9 Chloride 107 Carbon Dioxide 26.0 Anion Gap 7 BUN 24 H Creatinine 1.83 H Estim Creat Clear Calc 41.43 Est GFR (MDRD) Af Amer 49 L Est GFR (MDRD) Non-Af 41 L BUN/Creatinine Ratio 13.1 Glucose 111 H Calcium 8.5 Urine Color Yellow Urine Clarity Clear Urine pH 5.0 Ur Specific [place] 1.025 Urine Protein 30 H Urine Glucose (UA) Normal Urine Ketones 5 H Urine Occult Blood 250 H Urine Nitrite Negative Urine Bilirubin 1 H Urine Urobilinogen 1 H Ur Leukocyte Esterase 500 H Urine RBC > 100 SEEN Urine WBC >100 SEEN Ur Squamous Epith Cells 0 SEEN Ur Transition Epith Cell 0 SEEN Ur Renal Epithelial Cell 0 SEEN Urine Bacteria 3+ Urine Mucus 0 SEEN Radiography Diagnostic Testing: Clinical Impression(s) from Imaging Studies Abdomen/Pelvis CT 10/04/23 05:39 IMPRESSION: Mild left hydroureteronephrosis with a mid ureteral calculus measuring 0.3 cm seen. Moderate right hydronephrosis with a prominent calculus at the ureteropelvic junction. Multiple additional bilateral renal calculi seen. Electronically Signed: Bobby Castillo MD at 6:40 EDT , Discharge Plan Triage Chief Complaint: Flank Pain ED Provider: Grayson Alfonso Dx/Rx/DC Orders Clinical Impression: Acute kidney injury, UTI (urinary tract infection), Renal colic, Kidney stones Instructions: Urinary Tract Infections in Men, ED Kidney Stone with Pain Prescriptions: New oxycodone-acetaminophen [Percocet] 5-325 mg tablet 1 tab PO Q6H PRN (Reason: pain) 3 Days Qty: 12 0RF cephalexin 500 mg capsule 500 mg PO TID 7 Days Qty: 21 0RF ketorolac 10 mg tablet 10 mg PO 4X/DAY PRN PRN (Reason: pain) 5 Days Qty: 20 0RF tamsulosin [Flomax] 0.4 mg capsule 0.4 mg PO DAILY Qty: 14 0RF ondansetron 4 mg tablet,disintegrating 4 mg PO TID PRN (Reason: nausea and vomiting) Qty: 21 0RF No Action bupropion HCl 150 mg tablet extended release 24 hr 150 mg PO DAILY methylphenidate HCl [Concerta] 36 MG tablet extended release 24hr 72 mg PO DAILY cholecalciferol (vitamin D3) [Vitamin D3] 1,000 UNIT tablet 1,000 unit PO DAILY acetaminophen 500 mg Tablet 650 mg PO Q6 PRN (Reason: Abdominal Pain) Qty: 0 0RF ibuprofen 600 mg Tablet 600 mg PO Q6H PRN PRN (Reason: Pain Score 4-10) Qty: 0 0RF Primary Care Provider: Sven Mar Referrals: Sven Mra MD [Primary Care Provider] - Chino Walter MD [Med Staff - Active Staff] - Activity Restrictions/Additional Instructions: Please keep yourself well-hydrated and stay active to help try and pass your kidney stones. Based on the large nature of the right-sided kidney stone you may need lithotripsy. Contact urology for repeat evaluation. If you develop a fever of 100.4 or higher or have intractable pain despite taking her medications return to the ER for repeat evaluation Disposition Disposition: Home, Self Care
--- NOTE | 2023-10-04 08:11 | NURSING ---
CALLED [facility], NO UROLOGY
--- NOTE | 2023-10-04 08:12 | NURSING ---
[address] [facility]. [phone] DR FALK PAGED
--- NOTE | 2023-10-04 08:16 | NURSING ---
DR FALK IN SURGERY
--- NOTE | 2023-10-04 08:22 | NURSING ---
CALLED [facility]
== END 2023-10-04 08:47 | disposition home or self-care (01) ==
PROVIDERS: Emergency Provider Emergency Medicine; PCP Family Medicine; Visit Provider Emergency Medicine
DX: N13.6 Pyonephrosis (principal); N17.9 Acute kidney failure, unspecified; N23 Unspecified renal colic
CPT/HCPCS: 74176; 80048; 81001; 85025; 87086; 96361; 96374; 96375; 99282; J7030; A4216; J2405

== ENCOUNTER → 2023-10-25 | Outpatient (CLI) | payer BC, SELFPAY ==
--- NOTE | 2023-10-25 12:33 | RAD_ITS ---
STUDY: XR Abdomen 1 View 10/25/2023 12:39 PM REASON FOR EXAM: Male, 58 years old. CALCULUS OF KIDNEY TECHNIQUE: XR Abdomen 1 View COMPARISON: 5.3.22 FINDINGS: Normal visualized lung bases. Double-J bilateral ureteral stents in place. There is a moderate amount of colonic fecal material. There is no demonstrated free abdominal air. Diffuse calcifications overlying the right kidney. Normal soft tissue structures. There are diffuse degenerative changes of the visualized lumbar spine. RAD/Abdomen Single View IMPRESSION: Right renal calculi Electronically Signed: Reynaldo Starkey MD at 18:23 EDT ,
== END | disposition home or self-care (01) ==
LOC: RAD 12:27
PROVIDERS: PCP Family Medicine; Referring Provider Urology; Visit Provider Urology
DX: N20.0 Calculus of kidney (principal)
CPT/HCPCS: 74018

== ENCOUNTER → 2023-12-06 | Outpatient (CLI) | payer BC, SELFPAY ==
--- NOTE | 2023-12-06 15:35 | RAD_ITS ---
INDICATION: CALCULUS OF KIDNEY EXAMINATION/TECHNIQUE: X-RAY - XR Abdomen 1 View: 2 image AP abdomen COMPARISON: October 25, 2023 FINDINGS: BOWEL GAS PATTERN: Nonspecific non-obstructive bowel gas pattern. No focal stomach or bowel distention. Moderate distal colonic stool burden. FREE AIR: Not well assessed on a supine view. ORGANOMEGALY: Not seen. CALCIFICATIONS: Punctate left renal lower pole stones are suggested. Right renal evaluation is degraded by overlying surgical suture with some residual lower pole nephrolithiasis, decreased from prior exam. No suspicious calcification along the expected ureteral course. LOWER CHEST: Limited visualization. BONES AND SOFT TISSUES: Bilateral ureterovesical stents have been removed. No acute pathology. RAD/Abdomen Single View IMPRESSION: Findings compatible with mild residual nephrolithiasis Interval removal of ureteral stents. Electronically Signed: William Mckeon MD at 17:05 EDT ,
== END | disposition home or self-care (01) ==
LOC: RAD 15:28
PROVIDERS: PCP Family Medicine; Referring Provider Urology; Visit Provider Urology
DX: N20.0 Calculus of kidney (principal)
CPT/HCPCS: 74018

== ENCOUNTER → 2025-03-12 | Outpatient (CLI) | payer BC, SELFPAY ==
--- OUTSIDE RECORDS SUMMARY | 2025-03-12 07:12 | XMS RPT_ITS | CCD ---
Author Organization [facility] Care Team Providers Care Chemistry Teacher Name Role Phone KAYCE SCALES, DR GALLEGO Primary Care Physician Dr. Sven Mar Primary Care Provider Dr. Sven Mar Referring Provider Dr. Everett Jason Attending Provider [phone] Dr. Kennedy Salas Attending Provider [phone] Dr. Everett Jason Referring Provider [phone] Dr. Everett Jason Admit Provider Dr. Everett Jason Other Provider Dr. Florecita Gomez Emergency Provider Dr. Richard Olmstead Admit Provider Dr. Richard Olmstead Attending Provider [phone] Richard Olmstead Other Provider KAYCE SCALES, DR GALLEGO Primary Care Physician FLORINDA SCALES, DR CHINO ASCENCIO Attending DR LASHONDA Thorne MD Primary Care Chino Del Valle Attending Unavailable Chino Neely Referring Unavailable Lashonda Mar Primary Care Unavailable Chino Neely Attending Unavailable Chino Neely Referring Unavailable Lashonda Mar Primary Care Unavailable Grayson Alfonso Attending Unavailable Lashonda Mar Primary Care Unavailable Allergies Allergy Classification Reported Allergen(s) Allergy Type Date of Onset Reaction(s) Facility (2 sources) Sulfamethoxazole; Translations: [sulfamethoxazole ] Drug Allergy [facility] (2 sources) Sulfonamides (Antibiotic) Allergy to substance 4 Unknown [facility] (1 source) Sulfonamides (Antibiotic) Drug allergy (disorder) 4 [facility] Repository Medications Current Medications Medication Drug Class(es) Dates Sig (Normalized) Sig (Original) acetaminophen 500 mg oral tablet (4 sources) Start: 11-11-2021 take 650 mg by mouth every six hours Acetaminophen Active 650 MG PO EVERY 6 HOURS 0 November 11, 2021 12:00am acetaminophen 325 mg / oxyCODONE hydrochloride 5 mg oral tablet (2 sources) Opioid Agonist Start: 10-04-2023 take 1 tablet by mouth every six hours Oxycodone-Acetamino phen (Percocet) 5-325 mg tablet Active 1 TABLET PO EVERY 6 HOURS 12 October 04, 2023 24 hr buPROPion hydrochloride 150 mg extended release oral tablet (4 sources) Aminoketone Start: 11-01-2021 take 150 mg by mouth once daily Bupropion Hcl Active 150 MG PO DAILY November 01, 2021 12:00am cephalexin 500 mg oral capsule (2 sources) Cephalosporin Antibacterial Start: 10-04-2023 take 500 mg by mouth three times daily Cephalexin Active 500 MG PO THREE TIMES A DAY 09 02October 04, 2023 12:00am cholecalciferol 0.025 mg oral tablet (4 sources) Vitamin D Start: 02-11-2018 take 1 tablet by mouth once daily Cholecalciferol (Vitamin D3) (Vitamin D3) 1,000 UNIT tablet Active 1000 UNIT PO DAILY February 11, 2018 12:00am ibuprofen 600 mg oral tablet (4 sources) Nonsteroidal Anti-inflammatory Drug Start: 11-11-2021 take 600 mg by mouth every six hours as needed Ibuprofen Active 600 MG PO EVERY 6 HOURS NEEDED 0 November 11, 2021 12:00am ketorolac tromethamine 10 mg oral tablet (2 sources) Nonsteroidal Anti-inflammatory Drug, Cyclooxygenase Inhibitor Start: 10-04-2023 take 10 mg by mouth four times daily as needed Ketorolac Active 10 MG PO 4 TIMES DAILY NEEDED 09 12October 04, 2023 8:31am 24 hr methylphenidate hydrochloride 27 mg extended release oral tablet (6 sources) Central Nervous System Stimulant Start: 10-15-2015 take 1 tablet by mouth every hour, then take 1 tablet by mouth once daily in the morning Concerta 27 mg/24 hr oral tablet, extended release Dose : 27 mg = 1 tab(s), Oral, qAM, 0 Refill(s) Start Date: 10/15/15 Status: Ordered Start: 04-16-2014 take 2 tablets by mo [facility] once daily, then take 1 tablet by mouth every twenty-four hours Methylphenidate Hcl (Concerta) 36 MG tablet extended release 24hr Active 72 MG PO DAILY April 16, 2014 12:00am ondansetron 4 mg disintegrating oral tablet (2 sources) Serotonin-3 Receptor Antagonist Start: 10-04-2023 take 4 mg by mouth three times daily Ondansetron Active 4 MG PO THREE TIMES A DAY October 04, 2023 8:32am tamsulosin hydrochloride 0.4 mg oral capsule (2 sources) alpha-Adrenergic Francisco Start: 10-04-2023 take 1 capsule by mouth once daily Tamsulosin (Flomax) 0.4 mg capsule Active 0.4 MG PO DAILY October 04, 2023 12:00am Completed/Discontinued Medications Medication Drug Class(es) Dates Sig (Normalized) Sig (Original) acetaminophen 325 mg / HYDROcodone bitartrate 5 mg oral tablet (8 sources) Opioid Agonist Start: 02-15-2018 End: 11-01-2021 Hydrocodone-Acetam inophen Discontinued 1 EACH PO EVERY 4 HOURS NEEDED 08 02February 15, 2018 3:32pm November 01, 2021 12:26pm atropine sulfate 0.025 mg / diphenoxylate hydrochloride 2.5 mg oral tablet (2 sources) Anticholinergic, Cholinergic Muscarinic Antagonist, Antidiarrheal Start: 12-12-2021 End: 10-04-2023 take 1 tablet by mouth twice daily Diphenoxylate-Atro pine Discontinued 1 TABLET PO TWICE A DAY December 12, 2021 12:00am October 04, 2023 5:41am metroNIDAZOLE 500 mg oral tablet (8 sources) Nitroimidazole Antimicrobial Start: 11-01-2021 End: 11-11-2021 Metronidazole Discontinued 500 MG PO .COMPLEX November 04, 2021 10:11am November 11, 2021 11:02am 500 mg PO at 1300, 1400, 2300 day before surgery neomycin sulfate 500 mg oral tablet (8 sources) Aminoglycoside Antibacterial Start: 11-01-2021 End: 11-11-2021 Neomycin Discontinued 1 GM PO .COMPLEX November 04, 2021 10:11am November 11, 2021 11:02am 1 g PO at 1300, 1400, 2300 day before surgery; omeprazole 40 mg delayed release oral capsule (2 sources) Proton Pump Inhibitor Start: 12-12-2021 End: 10-04-2023 take 40 mg by mouth once daily Omeprazole Discontinued 40 MG PO DAILY 60 December 12, 2021 12:00am October 04, 2023 5:40am Problems Problem Classification Problem Date Documented Date Episodic/Chronic Acute and unspecified renal failure (2 sources) Acute renal failure syndrome; Translations: [Acute kidney failure, unspecified] 10-04-2023 Episodic Anxiety disorders (4 sources) Anxiety; Translations: [Anxiety disorder, unspecified] 11-04-2021 Chronic Calculus of urinary tract (9 sources) Kidney stone; Translations: [Calculus of kidney] Onset: 12-12-2023 10-04-2023 Episodic Complications of surgical procedures or medical care (6 sources) Postoperative ileus; Translations: [Other postprocedural complications and disorders of digestive system] Episodic Fluid and electrolyte disorders (6 sources) Lactic acidosis; Translations: [Acidosis] Episodic Hemorrhoids (4 sources) Hemorrhoids; Translations: [Unspecified hemorrhoids] 11-01-2021 Episodic Intestinal obstruction without hernia (6 sources) Small bowel obstruction; Translations: [Unspecified intestinal obstruction, unspecified as to partial versus complete obstruction] Episodic Mood disorders (4 sources) Depressive disorder; Translations: [Depression] 11-04-2021 Chronic Other and unspecified benign neoplasm (1 source) Adenomatous polyp of colon ; Translations: [Benign neoplasm of colon, unspecified] Episodic Other and unspecified benign neoplasm (4 sources) History of polyp of colon; Translations: [Personal history of colonic polyps] 11-01-2021 Episodic Other and unspecified benign neoplasm (2 sources) Benign neoplasm of colon, unspecified; Translations: [Benign neoplasm of colon] Episodic Urinary tract infections (3 sources) Urinary tract infectious disease; Translations: [Urinary tract infection, site not specified] Onset: 10-09-2023 10-04-2023 Episodic Results Test Name Value Interpretation Reference Range Facility Abdomen Single Viewon 2023 Abdomen Single View [facility] Imaging Services [address] [place], [place] [id number] Abdomen Single View MR#: [id number] Acct: [id number] Name: MICHELA ZEPEDA Rep #: [id number] : 1965 M 58 From: William Mckeon MD PCP: Dr. Lashonda Mar MD Status: REG CLI Study: Abdomen Single View Date of Exam: 12/06/23 Exam# [id number] Ordering Dr: Chino Neely MD [id number] INDICATION: CALCULUS OF KIDNEY EXAMINATION/TECHNIQUE: X-RAY - XR Abdomen 1 View: 2 image AP abdomen COMPARISON: October 25, 2023 FINDINGS: BOWEL GAS PATTERN: Nonspecific non-obstructive bowel gas pattern. No focal stomach or bowel distention. Moderate distal colonic stool burden. FREE AIR: Not well assessed on a supine view. ORGANOMEGALY: Not seen. CALCIFICATIONS: Punctate left renal lower pole stones are suggested. Right renal evaluation is degraded by overlying surgical suture with some residual lower pole nephrolithiasis, decreased from prior exam. No suspicious calcification along the expected ureteral course. LOWER CHEST: Limited visualization. BONES AND SOFT TISSUES: Bilateral ureterovesical stents have been removed. No acute pathology. RAD/Abdomen Single View IMPRESSION: Findings compatible with mild residual nephrolithiasis Interval removal of ureteral stents. Electronically Signed: William Mckeon MD at 17:05 EDT , CC: Dr. Lashonda Mar MD; Dr. Cihno Neely MD Telecommunications Cable Jointer: Signed Normal [facility] Abdomen Single Viewon 2023 Abdomen Single View [facility] Imaging Services [address] [place] [address] Abdomen Single View MR#: [id number] Acct: [id number] Name: MICHELA ZEPEDA Rep #: [id number] : 1965 M 58 From: Reynaldo Landa PCP: Dr. Sven Mar MD Status: REG CLI Study: Abdomen Single View Date of Exam: 10/25/23 Exam# [id number] Ordering Dr: Chino Neely MD [id number] STUDY: XR Abdomen 1 View 10/25/2023 12:39 PM REASON FOR EXAM: Male, 58 years old. CALCULUS OF KIDNEY TECHNIQUE: XR Abdomen 1 View COMPARISON: 5.3.22 FINDINGS: Normal visualized lung bases. Double-J bilateral ureteral stents in place. There is a moderate amount of colonic fecal material. There is no demonstrated free abdominal air. Diffuse calcifications overlying the right kidney. Normal soft tissue structures. There are diffuse degenerative changes of the visualized lumbar spine. RAD/Abdomen Single View IMPRESSION: Right renal calculi Electronically Signed: Reynaldo Starkey MD at 18:23 EDT Reading Location ID and State: [facility] [place] , Service support , CC: Dr. Sven Mar MD; Dr. Chino Neely MD Telecommunications Cable Jointer: Signed Normal [facility] Urine Cultureon 10-05-2023 URC Culture exhibits no growth. Normal [facility] Comment on above: Performed By: #### M 100.4247 #### [facility] Laboratory [address] [place], [address] Abdomen/Pelvis without Conto n 10-04-2023 Abdomen/Pelvis without Cont [facility] Imaging Services [address] [place] [address] Abdomen/Pelvis without Cont MR#: [id number] Acct: [id number] Name: MICHELA ZEPEDA Rep #: [id number] : 1965 M 58 From: Bobby rivera MD PCP: Dr. Sven Mar MD Status: REG ER Study: Abdomen/Pelvis without Cont Date of Exam: 09/20 11/13 Exam# [id number] Ordering Dr: Grayson Alfonso DO [id number] INDICATION: left flank pain EXAMINATION: CT ABDOMEN AND PELVIS WITHOUT CONTRAST - CT Abdomen And Pelvis W/O Contrast Injection TECHNIQUE: Helically acquired images were obtained of the abdomen and pelvis without oral or IV contrast. A radiation dose optimization technique was used for this scan. IV Contrast dosage and agent: None. Oral contrast: None. RADIATION DOSAGE (If Supplied By Facility): CTDIvol = ( 6.14 ) mGy, DLP = ( 294.57 ) mGycm COMPARISON: No relevant prior comparison study available FINDINGS: LOWER CHEST: Linear bibasilar atelectasis. No cardiomegaly or pericardial effusion. LIVER: The liver is normal in size, shape, and attenuation. No focal mass. GALLBLADDER AND BILIARY TREE: The gallbladder is normally distended. No gallstones. No gallbladder wall thickening or edema. No intra- or extrahepatic biliary ductal dilation. PANCREAS: No focal cystic or solid mass. SPLEEN: Normal size without focal cystic or solid mass. Multiple calcified granulomas noted. ADRENAL GLANDS: No nodules. KIDNEYS AND URETERS: Normal renal size and position. There is mild left hydroureteronephrosis. There is a mid ureteral 0.3 cm calculus identified at the L4 level. Prominent calculus in the left renal pelvis which measures 1.4 cm. This is 10 cm from the posterior axillary line and measures 920 Hounsfield units. There is also moderate right hydronephrosis with a 1.9 cm calculus in the renal pelvis at the ureteropelvic junction. This measures 922 Hounsfield units. At least 2 additional right renal calculi are seen. The right ureter is decompressed. PERITONEUM: No ascites or free air. No other fluid collection. BOWEL: Small hiatal hernia. The stomach is otherwise unremarkable. Normal caliber small bowel. There is no obstruction. Right hemicolectomy. Enterocolic anastomosis at the midabdomen anteriorly. Diffuse colonic diverticulosis without diverticulitis. Moderate colonic stool burden. LYMPH NODES: No enlarged mesenteric or retroperitoneal lymph nodes. VESSELS: Aorta is non-dilated. URINARY BLADDER: Unremarkable. REPRODUCTIVE ORGANS: No pelvic masses. ABDOMINAL WALL: No discrete abdominal or pelvic wall hernia. BONES: No acute or suspicious osseous abnormality. CT/Abdomen/Pelvis without Cont IMPRESSION: Mild left hydroureteronephrosis with a mid ureteral calculus measuring 0.3 cm seen. Moderate right hydronephrosis with a prominent calculus at the ureteropelvic junction. Multiple additional bilateral renal calculi seen. Electronically Signed: Bobby Castillo MD at 6:40 EDT , CC: Dr. Sven Mar MD; Grayson Alfonso DO Telecommunications Cable Jointer: Signed Normal [facility] Absolute lymphocyte countOrd ered By: Grayson Alfonso on 10-04-2023 Lymphocytes Auto (Unsp spec) [#/Vol] 1.83 10*3/uL 0.83-4.51 [facility] Automated lymphocyte count a s percentage of total leukocytesOrdered By: Grayson Alfonso on 10-04-2023 Lymphocytes/100 WBC Auto (Unsp spec) 19.4 % 19-41 [facility] Basic Metabolic Profile (BMP )on 10-04-2023 BUN/CRE 13.1 RATIO Normal 10-20 [facility] Comment on above: Performed By: #### L 100.0100, L500.2500 #### [facility] Laboratory [facility] [place], [address] CA,Total 8.5 mg/dL Normal 8.5-10.1 [facility] Comment on above: Performed By: #### L 100.0100, L500.2500 #### [facility] [address] [place], [address] Chloride [Moles/Vol] 107 mmol/L Normal 98-107 [facility] Comment on above: Performed By: #### L 100.0100, L500.2500 #### [facility] [address] [place], [address] CO2 [Moles/Vol] 26.0 mmol/L Normal 21.0-32.0 [facility] Comment on above: Performed By: #### L 100.0100, L500.2500 #### [facility] [address] [place], [address] Creatinine [Mass/Vol] 1.83 mg/dL High 0.70-1.30 [facility] Comment on above: Result Comment: The validity of the calculated GFR GFRAA in patients over 70 years has not been determined. Clinical correlation is essential. Performed By: #### L 100.0100, L500.2500 #### [facility] [address] [place], [address] ECRCL 41.43 ml/min Normal [facility] Comment on above: Performed By: #### L 100.0100, L500.2500 #### [facility] [address] [place], [address] EST GFR - AA 49 mL/min Low >60 [facility] Comment on above: Result Comment: Afri can Montserratian GFR Calc Performed By: #### L 100.0100, L500.2500 #### [facility] [address] [place], [address] GAP 7 Normal 5-15 [facility] Comment on above: Performed By: #### L 100.0100, L500.2500 #### [facility] [address] [place], [address] GFR/1.73 sq M.predicted among non-blacks MDRD (S/P/Bld) [Vol rate/Area] 41 mL/min/{1.73_m2} Low >60 [facility] Comment on above: Result Comment: Non- GFR Calc Performed By: #### L 100.0100, L500.2500 #### [facility] [address] [place], [address] Glucose [Mass/Vol] 111 mg/dL High 74-106 [facility] Comment on above: Result Comment: Fast ing Glucose result from 100 to 125 mg/dL suggests IMPAIRED HOMEOSTASIS per A.D.A. criteria. Performed By: #### L 100.0100, L500.2500 #### [facility] [address] [place], [address] Potassium [Moles/Vol] 3.9 mmol/L Normal 3.5-5.1 [facility] Comment on above: Performed By: #### L 100.0100, L500.2500 #### [facility] [address] [place], [address] Sodium [Moles/Vol] 140 mmol/L Normal 136-145 [facility] Comment on above: Performed By: #### L 100.0100, L500.2500 #### [facility] [address] [place], [address] Urea nitrogen [Mass/Vol] 24 mg/dL High 7-18 [facility] Comment on above: Performed By: #### L 100.0100, L500.2500 #### [facility] [address] [place], [address] Basophil percentageOrdered B y: Grayson Alfonso on 10-04-2023 Basophils/100 WBC (Bld) 0.5 % 0-1 [facility] Chloride [Moles/Vol] 107 mmol/L 98-107 [facility] Eosinophils/100 WBC (Bld) 1.2 % 0-5 [facility] Glucose [Mass/Vol] 111 mg/dL 74-106 [facility] Comment on above: Fasting Glucose resu lt from 100 to 125 mg/dL suggests IMPAIRED HOMEOSTASIS per A.D.A. criteria. Hemoglobin (Bld) [Mass/Vol] 15.3 g/dL 13.0-16.5 [facility] Monocytes/100 WBC (Bld) 5.9 % 0-10 [facility] Neutrophils (Bld) [#/Vol] 6.9 10*3/uL 2.0-7.7 [facility] Neutrophils/100 WBC (Bld) 72.6 % 47-70 [facility] Potassium [Moles/Vol] 3.9 mmol/L 3.5-5.1 [facility] Sodium [Moles/Vol] 140 mmol/L 136-145 [facility] WBC (Bld) [#/Vol] 9.5 10*3/uL 4.4-11.0 [facility] Basophil percentage >100 SEEN /hpf 0-5 [facility] Bilirubin Test strip Ql (U)O rdered By: Grayson Alfonso on 10-04-2023 Bilirubin Ql (U) 1 mg/dL Negative [facility] Comment on above: COLOR OF URINE MAY A FFECT DIPSTICK RESULTS. CBC W/Diff, Automatedon - Absolute Lymph 1.83 X10 3/uL Normal 0.83-4.51 [facility] Comment on above: Performed By: #### L 100.0100, L500.2500 #### [facility] [address] [place], [address] Absolute Neut 6.9 X10 3/uL Normal 2.0-7.7 [facility] Comment on above: Performed By: #### L 100.0100, L500.2500 #### [facility] [address] [place], [address] Basophils/100 WBC (Bld) 0.5 % Normal 0-1 [facility] Comment on above: Performed By: #### L 100.0100, L500.2500 #### [place] [facility] [address] [place], [address] Eosinophils/100 WBC (Bld) 1.2 % Normal 0-5 [facility] Comment on above: Performed By: #### L 100.0100, L500.2500 #### [facility] [address] [place], [address] Erythrocyte distribution width (RBC) [Ratio] 13.2 % Normal 11.6-14.6 [facility] Comment on above: Performed By: #### L 100.0100, L500.2500 #### [facility] [address] [place], [address] Hematocrit (Bld) [Volume fraction] 47.2 % Normal 40-54 [facility] Comment on above: Performed By: #### L 100.0100, L500.2500 #### [facility] [address] [place], [address] Hemoglobin (Bld) [Mass/Vol] 15.3 g/dL Normal 13.0-16.5 [facility] Comment on above: Performed By: #### L 100.0100, L500.2500 #### [facility] [address] [place], [address] IG% 0.400 Normal 0.0-0.9 [facility] Comment on above: Result Comment: IG% - Immature Granulocytes (promyelocytes, myelocytes and metamyelocytes) > 1% indicates that a LEFT SHIFT is Present. Performed By: #### L 100.0100, L500.2500 #### [facility] [address] [place], [address] Lymphocytes/100 WBC (Bld) 19.4 % Normal 19-41 [facility] Comment on above: Performed By: #### L 100.0100, L500.2500 #### [facility] [address] [place], [address] MCH (RBC) [Entitic mass] 28.7 pg Normal 27.0-32.0 [facility] Comment on above: Performed By: #### L 100.0100, L500.2500 #### [facility] [address] [place], [address] MCHC (RBC) [Mass/Vol] 32.4 g/dL Normal 32-36 [facility] Comment on above: Performed By: #### L 100.0100, L500.2500 #### [facility] [address] [place], [address] MCV (RBC) [Entitic vol] 88.4 fL Normal 80-94 [facility] Comment on above: Performed By: #### L 100.0100, L500.2500 #### [facility] [address] [place], [address] Monocytes/100 WBC (Bld) 5.9 % Normal 0-10 [facility] Comment on above: Performed By: #### L 100.0100, L500.2500 #### [facility] [address] [place], [address] Neutrophils/100 WBC (Bld) 72.6 % High 47-70 [facility] Comment on above: Performed By: #### L 100.0100, L500.2500 #### [facility] [address] [place], [address] Nucleated RBC (Bld) [#/Vol] 0 10*3/uL Normal 0-5 [facility] Comment on above: Performed By: #### L 100.0100, L500.2500 #### [facility] [address] [place], [address] Platelet mean volume (Bld) [Entitic vol] 10.6 fL Normal 6.2-12.0 [facility] Comment on above: Performed By: #### L 100.0100, L500.2500 #### [facility] [address] [place], [address] Platelets (Bld) [#/Vol] 281 10*3/uL Normal 150-450 [facility] Comment on above: Performed By: #### L 100.0100, L500.2500 #### [facility] [address] [place], [address] RBC (Bld) [#/Vol] 5.34 10*6/uL Normal 4.6-6.2 [facility] Comment on above: Performed By: #### L 100.0100, L500.2500 #### [facility] [address] [place], [address] RDW SD 42.7 fl Normal 35.1-43.9 [facility] Comment on above: Performed By: #### L 100.0100, L500.2500 #### [facility] [address] [place], [address] WBC (Bld) [#/Vol] 9.5 10*3/uL Normal 4.4-11.0 [facility] Comment on above: Performed By: #### L 100.0100, L500.2500 #### [facility] [address] [place], [address] Culture, urineOrdered By: Ilda Alfonso on 10-04-2023 Bacteria identified Cx Nom (U) Culture exhibits no growth. [facility] Determination of erythrocyte mean corpuscular volume (MCV)Ordered By: Grayson Alfonso on 10-04-2023 MCV (RBC) [Entitic vol] 88.4 fL 80-94 [facility] Emergency Department Summary on 10-04-2023 Emergency Department Summary [facility] Medical Records Department [address] [place] [address] Emergency Department Summary 10/04/23 MR#: [id number] Acct: [id number] Name: MICHELA ZEPEDA Rep #: [id number] : 1965 58 From: Grayson Alfonso DO PCP: Dr. Sven Mar MD Status:REG ER Location: ED HPI History of Present Illness Chief Complaint: Flank Pain Informant: patient Narrative Narrative: Patient is a 58-year-old male with history of ADHD and depression as well as previous colectomy and also remote history of kidney stones. He states that last night he noticed bilateral flank pain which was greatest on the left that came on while sleeping. He states that this feels similar nature to his previous kidney stone. He denies any dysuria or hematuria he denies any recent trauma or excessive activity. He states in the past his stones have been so large as they needed lithotripsy. He has concern for this once again and therefore comes in for evaluation [facility] Medical History ADHD Anxiety Colon polyp COVID Depression Hemorrhoids High grade dysplasia in colonic adenoma Non-smoker Stone, kidney Home Medications methylphenidate HCl 36 mg tablet,extended release 24 hr ([employer]cert[employer]) 72 mg PO DAILY ADHD 04/16/14 [History Last Taken Unknown] cholecalciferol (vitamin D3) 25 mcg (1,000 unit) tablet (Vitamin D3) 1,000 unit PO DAILY SUPPLEMENT 02/11/18 [History Last Taken Unknown] bupropion HCl 150 mg 24 hr tablet, extended release 150 mg PO DAILY mental health 11/01/21 [History Last Taken Unknown] acetaminophen 500 mg tablet 650 mg (1.3 x 500 mg) PO Q6 PRN Abdominal Pain #0 tabs 11/11/21 [Rx Last Taken Unknown] ibuprofen 600 mg tablet 600 mg PO Q6H PRN PRN Pain Score 4-10 #0 tabs 11/11/21 [Rx Last Taken Unknown] cephalexin 500 mg capsule 500 mg PO TID 7 days #21 caps 10/04/23 [Rx Last Taken Unknown] ketorolac 10 mg tablet 10 mg PO 4X/DAY PRN PRN pain 5 days #20 tabs 10/04/23 [Rx Last Taken Unknown] ondansetron 4 mg disintegrating tablet 4 mg PO TID PRN nausea and vomiting #21 tabs 10/04/23 [Rx Last Taken Unknown] oxycodone-acetaminophen 5 mg-325 mg tablet (Percocet) 1 tab PO Q6H PRN pain 3 days #12 tabs 10/04/23 [Rx Last Taken Unknown] tamsulosin 0.4 mg capsule (Flomax) 0.4 mg PO DAILY #14 caps 10/04/23 [Rx Last Taken Unknown] Allergy/AdvReac Type Severity Reaction Status Date / Time Sulfa (Sulfonamide Allergy Unknown Verified 10/04/23 05:30 Antibiotics) Family History Mother Diabetes Cancer skin Father Diabetes Thyroid disorder Surgical History H/O right hemicolectomy History of colonoscopy History of lithotripsy S/P appendectomy S/P tonsillectomy Social History Smoking Status: Never smoker alcohol intake: current ROS ROS ED Constitutional Constitutional ED: Denies chills or fever(s) ENT ENT ED: Denies sore throat Cardiovascular Cardiovascular: Denies chest pain Respiratory/Chest Respiratory/Chest: Denies cough or dyspnea Gastrointestinal Gastrointestinal: Reports abdominal pain and nausea; Denies diarrhea or vomiting Genitourinary Genitourinary ED: Reports other Details: Positive flank pain ; Denies dysuria Musculoskeletal Musculoskeletal: Reports back pain; Denies myalgias Integumentary Denies rash Neurologic Neurologic: Denies headache(s) Hematologic/Lymphatic Hematologic/Lymphatic: Denies easy bleeding or easy bruising EXAM Physical Exam Const Vital Signs: 10/04/23 05:24 10/04/23 07:21 Temperature 97.9 F Temperature Source Temporal Pulse Rate 85 Respiratory Rate 18 Blood Pressure 155/91 H 134/84 H Blood Pressure Mean 112 100 Pulse Ox 98 Oxygen Delivery Method Room Air Positive well nourished and well developed General Appearance ED: well developed; Negative for pallor HEENT HEENT Narrative: Normocephalic atraumatic Eyes PERRL and EOMs intact bilaterally General Eye ED: Negative for scleral icterus Neck supple Resp normal respiratory effort and clear to auscultation bilaterally Cardio regular rate and regular rhythm Rate: other Other Details: Heart is regular rate and rhythm without murmurs rubs or gallops Radial and carotid pulses are equal and symmetric GI non-distended GI Narrative: Abdomen is soft and nondistended with normal active bowel sounds. Patient has mild pain to palpation along the left mid to upper abdomen without voluntary guarding or rigidity No pulsatile mass or fluid wave Auscultation: normoactive bowel sounds Palpation: soft Back/Spine Back/Spine Narrative: Positive bilateral CVA pain Extremity normal to inspection Neuro orie (more content not included)... Normal [facility] Erythrocyte distribution wid th ratioOrdered By: Grayson Alfonso on 10-04-2023 Erythrocyte distribution width (RBC) [Ratio] 13.2 % 11.6-14.6 [facility] Erythrocyte distribution wid th standard deviationOrdered By: Grayson Alfonso on 10-04-2023 Erythrocyte distribution width (RBC) [Entitic vol] 42.7 fL 35.1-43.9 [facility] Hematocrit Auto (Bld) [Volum e fraction]Ordered By: Grayson Alfonso on 10-04-2023 Hematocrit (Bld) [Volume fraction] 47.2 % 40-54 [facility] Immature granulocytes/100 WB C Auto (Bld)Ordered By: Grayson Alfonso on 10-04-2023 Immature granulocytes/100 WBC (Bld) 0.400 % 0.0-0.9 [facility] Comment on above: IG% - Immature Granu locytes (promyelocytes, myelocytes and metamyelocytes) > 1% indicates that a LEFT SHIFT is Present. Ketones Test strip Ql (U)Ord ered By: Grayson Alfonso on 10-04-2023 Ketones Ql (U) 5 mg/dl Negative [facility] Laboratory - Chemistry and C hemistry - challengeOrdered By: Grayson Alfonso on 10-04-2023 CO2 [Moles/Vol] 26.0 mmol/L 21.0-32.0 [facility] Urea nitrogen/Creatinine [Mass ratio] 13.1 mg/mg 10-20 [facility] Laboratory - Hematology and Cell countsOrdered By: Grayson Alfonso on 10-04-2023 MCH (RBC) [Entitic mass] 28.7 pg 27.0-32.0 [facility] MCHC (RBC) [Mass/Vol] 32.4 g/dL 32-36 [facility] Nucleated RBC/100 WBC (Bld) [Ratio] 0 % 0-5 [facility] Platelet mean volume (Bld) [Entitic vol] 10.6 fL 6.2-12.0 [facility] Platelets (Bld) [#/Vol] 281 10*3/uL 150-450 [facility] Mucus LM Ql (Urine sed)Order ed By: Grayson Alfonso on 10-04-2023 Mucus Ql (Urine sed) 0 SEEN /hpf [facility] Nitrite Test strip Ql (U)Ord ered By: Grayson Alfonso on 10-04-2023 Nitrite Ql (U) Negative Negative [facility] No Panel InformationOrdered By: Grayson Alfonso on 10-04-2023 Estimated Creatinine Clearance Calc 41.43 ml/min [facility] Estimated GFR (MDRD) Amer 49 mL/min >60 [facility] Comment on above: GFR Calc Estimated GFR (MDRD) Non-Af Amer 41 mL/min >60 [facility] Comment on above: Non- GFR Calc Urine RBC > 100 SEEN /hpf 0-5 [facility] Protein Test strip Ql (U)Ord ered By: Grayson Alfonso on 10-04-2023 Protein Ql (U) 30 mg/dl Negative [facility] RBC Auto (Bld) [#/Vol]Ordere d By: Grayson Alfonso on 10-04-2023 RBC (Bld) [#/Vol] 5.34 10*6/uL 4.6-6.2 [facility] Serum or plasma calcium liz urement (mass/volume)Ordered By: Grayson Alfonso on 10-04-2023 Calcium [Mass/Vol] 8.5 mg/dL 8.5-10.1 [facility] Serum or plasma creatinine m easurement (mass/volume)Ordered By: Grayson Alfonso on 10-04-2023 Creatinine [Mass/Vol] 1.83 mg/dL 0.70-1.30 [facility] Comment on above: The validity of the calculated GFR & GFRAA in patients over 70 years has not been determined. Clinical correlation is essential. Serum or plasma urea nitroge n measurement (mass/volume)Ordered By: Grayson Alfonso on 10-04-2023 Urea nitrogen [Mass/Vol] 24 mg/dL 7-18 [facility] Squamous epithelial cells de tection in urine sediment by light microscopyOrdered By: Grayson Alfonso on 10-04-2023 Epithelial cells.squamous LM Ql (Urine sed) 0 SEEN /hpf 0-5 [facility] Thin prep Papanicolaou smear with manual screeningOrdered By: Grayson Alfonso on 10-04-2023 Thin prep Papanicolaou smear with manual screening 7 5-15 [facility] Transitional cells detection in urine sediment by light microscopyOrdered By: Grayson Alfonso on 10-04-2023 Transitional cells LM Ql (Urine sed) 0 SEEN /hpf 0-5 [facility] Urinalysis, Completeon 10-03 BACTERIA 3+ /hpf Normal None Seen [facility] Comment on above: Order Comment: CLEAN CATCH Performed By: #### [id number] #### [facility] [address] [place], [address] EPI,RENAL 0 SEEN Normal 0-5 [facility] Comment on above: Order Comment: CLEAN CATCH Performed By: #### [id number] #### [facility] [address] [place], [address] EPI,TRANSITION 0 SEEN Normal [address] [place] [address] Comment on above: Order Comment: CLEAN CATCH Performed By: #### [id number] #### [facility] [address] [place], [address] RBC > 100 SEEN Normal 0-5 [facility] Comment on above: Order Comment: CLEAN CATCH Performed By: #### [id number] #### [facility] [address] [place], [address] WBC >100 SEEN Normal [address] [place] [address] Comment on above: Order Comment: CLEAN CATCH Performed By: #### [id number] #### [facility] [address] [place], [address] EPI,SQUAMOUS 0 SEEN Normal [address] [place] [address] Comment on above: Order Comment: CLEAN CATCH Performed By: #### [id number] #### [facility] [address] [place], [place], [id number] Mucus Ql (Urine sed) 0 SEEN Normal [facility] Comment on above: Order Comment: CLEAN CATCH Performed By: #### [id number] #### [facility] [address] [place], [place], [id number] Urine blood detectionOrdered By: Grayson Alfonso on 10-04-2023 RBC Ql (U) 250 /ul Negative [facility] Urine clarityOrdered By: Subhash Alfonso on 10-04-2023 Clarity (U) Clear Clear [facility] Urine color determinationOrd ered By: Grayson Alfonso on 10-04-2023 Color (U) Yellow Yellow [facility] Urine glucose detectionOrder ed By: Grayson Alfonso on 10-04-2023 Glucose Ql (U) Normal mg/dl Normal [facility] Urine leukocyte esterase det ection by dipstickOrdered By: Grayson Alfonso on 10-04-2023 Leukocyte esterase Test strip Ql (U) 500 /ul Negative [facility] Urine pHOrdered By: Grayson griffin on 10-04-2023 pH (U) 5.0 [pH] 5.0 - 8.0 [facility] Urine sediment bacteria coun t by microscopy (number/high power field)Ordered By: Grayson Alfonso on 10-04-2023 Bacteria LM.HPF (Urine sed) [#/Area] 3 /[HPF] None Seen [facility] Urine sediment renal epithel ial cell count by microscopy (number/high power field)Ordered By: Grayson Alfonso on 10-04-2023 Epithelial cells.renal LM.HPF (Urine sed) [#/Area] 0 /[HPF] 0-5 [facility] Urine specific gravity measu rementOrdered By: Grayson Alfonso on 10-04-2023 Specific gravity (U) [Rel density] 1.025 1.002-1.030 [facility] Urine urobilinogen measureme ntOrdered By: Grayson Alfonso on 10-04-2023 Urobilinogen Ql (U) 1 mg/dl Normal [facility] Absolute lymphocyte counton 11-22-2021 Lymphocytes Auto (Unsp spec) [#/Vol] 1.30 10*3/uL 0.83-4.51 [facility] Work Phone: Basophil percentageon 2021 Basophils/100 WBC (Bld) 0.8 % 0-1 [facility] Work Phone: Chloride [Moles/Vol] 104 mmol/L 98-107 [facility] Work Phone: Eosinophils/100 WBC (Bld) 5.2 % 0-5 [facility] Work Phone: Glucose [Mass/Vol] 73 mg/dL 74-106 [facility] Work Phone: Neutrophils (Bld) [#/Vol] 3.8 10*3/uL 2.0-7.7 [facility] Work Phone: [phone] Neutrophils/100 WBC (Bld) 63.7 % 47-70 [facility] Work Phone: Potassium [Moles/Vol] 3.5 mmol/L 3.5-5.1 [facility] Work Phone: [phone] Sodium [Moles/Vol] 136 mmol/L 136-145 [facility] Work Phone: [phone] WBC (Bld) [#/Vol] 5.9 10*3/uL 4.4-11.0 [facility] Work Phone: Blood erythrocytes count (nu mber/volume)on 11-22-2021 RBC (Bld) [#/Vol] 4.36 10*6/uL 4.6-6.2 [facility] Work Phone: [phone] Blood hemoglobin measurement (mass/volume)on 11-22-2021 Hemoglobin (Bld) [Mass/Vol] 12.7 g/dL 13.0-16.5 [facility] Work Phone: [phone] Blood lymphocytes/100 leukoc yteson 11-22-2021 Lymphocytes/100 WBC (Bld) 21.9 % 19-41 [facility] Work Phone: [phone] Blood monocytes/100 leukocyt eson 11-22-2021 Monocytes/100 WBC (Bld) 7.9 % 0-10 [facility] Work Phone: Blood platelet mean volumeon 11-22-2021 Platelet mean volume (Bld) [Entitic vol] 10.5 fL 6.2-12.0 [facility] Work Phone: Determination of erythrocyte mean corpuscular volume (MCV)on 11-22-2021 MCV (RBC) [Entitic vol] 85.8 fL 80-94 [facility] Work Phone: Hematocrit Auto (Bld) [Volum e fraction]on 11-22-2021 Hematocrit (Bld) [Volume fraction] 37.4 % 40-54 [facility] Work Phone: Laboratory - Chemistry and C hemistry - challengeon 11-22-2021 CO2 [Moles/Vol] 20.0 mmol/L 21.0-32.0 [facility] Work Phone: Urea nitrogen/Creatinine [Mass ratio] 15.1 mg/mg 10-20 [facility] Work Phone: Laboratory - Hematology and Cell countson 11-22-2021 Erythrocyte distribution width (RBC) [Entitic vol] 39.4 fL 35.1-43.9 [facility] Work Phone: Erythrocyte distribution width (RBC) [Ratio] 12.7 % 11.6-14.6 [facility] Work Phone: Immature granulocytes/100 WBC (Bld) 0.500 % 0.0-0.9 [facility] Work Phone: Comment on above: IG% - Immature Granu locytes (promyelocytes, myelocytes and metamyelocytes) > 1% indicates that a LEFT SHIFT is Present. MCH (RBC) [Entitic mass] 29.1 pg 27.0-32.0 [facility] Work Phone: Nucleated RBC/100 WBC (Bld) [Ratio] 0 % 0-5 [facility] Work Phone: MCHC Auto (RBC) [Mass/Vol]on 11-22-2021 MCHC (RBC) [Mass/Vol] 34.0 g/dL 32-36 [facility] Work Phone: No Panel Informationon 11-22 Estimated Creatinine Clearance Calc 131.42 ml/min [facility] Work Phone: Estimated GFR (MDRD) Amer 180 mL/min >60 [facility] Work Phone: Comment on above: GFR Calc Estimated GFR (MDRD) Non-Af Amer 148 mL/min >60 [facility] Work Phone: Comment on above: Non- GFR Calc Platelets bldon 11-22-2021 Platelets (Bld) [#/Vol] 376 10*3/uL 150-450 [facility] Work Phone: Serum or plasma calcium liz urement (mass/volume)on 11-22-2021 Calcium [Mass/Vol] 8.3 mg/dL 8.5-10.1 [facility] Work Phone: Serum or plasma creatinine m easurement (mass/volume)on 11-22-2021 Creatinine [Mass/Vol] 0.60 mg/dL 0.70-1.30 [facility] Work Phone: Comment on above: The validity of the calculated GFR & GFRAA in patients over 70 years has not been determined. Clinical correlation is essential. Serum or plasma urea nitroge n measurement (mass/volume)on 11-22-2021 Urea nitrogen [Mass/Vol] 9 mg/dL 7-18 [facility] Work Phone: Thin prep Papanicolaou smear with manual screeningon 11-22-2021 Thin prep Papanicolaou smear with manual screening 12 5-15 [facility] Work Phone: Basophil percentageon 2021 Basophil percentage 3.2 mg/dL 2.5-4.9 [facility] Work Phone: Laboratory - Chemistry and C hemistry - challengeon 11-21-2021 Magnesium [Mass/Vol] 2.0 mg/dL 1.6-2.6 [facility] Work Phone: Blood manual differential co mment interpretation (narrative result)on 11-18-2021 Manual differential comment Mata (Bld) [Interp] SCANNED [facility] Work Phone: Comment on above: LYMPHOPENIA NOTED Basophil percentageon 2021 Lactate [Moles/Vol] 0.8 mmol/L 0.4-2.0 [facility] Work Phone: Absolute lymphocyte counton 11-15-2021 Lymphocytes Auto (Unsp spec) [#/Vol] 2.14 10*3/uL 0.83-4.51 [facility] Work Phone: Basophil percentageon 2021 Basophil percentage 0-5 SEEN /hpf [facility] Work Phone: Basophils/100 WBC (Bld) 0.4 % 0-1 [facility] Work Phone: Bilirubin [Mass/Vol] 0.50 mg/dL 0.20-1.00 [facility] Work Phone: Comment on above: For patients on eltr ombopag therapy, use of Dimension [place] TBIL is not recommended. Chloride [Moles/Vol] 104 mmol/L 98-107 [facility] Work Phone: Eosinophils/100 WBC (Bld) 1.3 % 0-5 [facility] Work Phone: Glucose [Mass/Vol] 131 mg/dL 74-106 [facility] Work Phone: Comment on above: Fasting Glucose resu lt greater than or equal to 126 mg/dL suggests DIABETES MELLITUS per A.D.A. criteria. Lactate [Moles/Vol] 2.3 mmol/L 0.4-2.0 [facility] Work Phone: Comment on above: Critical Result(s) C alled at: 22:04:18 11/15/2021 by: FABIANO BELLAMY TO WANDA TOWNSEND. Results read back by same. Neutrophils (Bld) [#/Vol] 7.7 10*3/uL 2.0-7.7 [facility] Work Phone: [phone] Neutrophils/100 WBC (Bld) 71.1 % 47-70 [facility] Work Phone: Potassium [Moles/Vol] 3.9 mmol/L 3.5-5.1 [facility] Work Phone: [phone] Protein [Mass/Vol] 7.9 g/dL 6.4-8.2 [facility] Work Phone: [phone] Sodium [Moles/Vol] 138 mmol/L 136-145 [facility] Work Phone: [phone] WBC (Bld) [#/Vol] 10.8 10*3/uL 4.4-11.0 [facility] Work Phone: Bilirubin Test strip Ql (U)o n 11-15-2021 Bilirubin Ql (U) Negative Negative [facility] Work Phone: Blood erythrocytes count (nu mber/volume)on 11-15-2021 RBC (Bld) [#/Vol] 5.79 10*6/uL 4.6-6.2 [facility] Work Phone: Blood hemoglobin measurement (mass/volume)on 11-15-2021 Hemoglobin (Bld) [Mass/Vol] 17.1 g/dL 13.0-16.5 [facility] Work Phone: [phone] Blood lymphocytes/100 leukoc yteson 11-15-2021 Lymphocytes/100 WBC (Bld) 19.8 % 19-41 [facility] Work Phone: Blood monocytes/100 leukocyt eson 11-15-2021 Monocytes/100 WBC (Bld) 7.0 % 0-10 [facility] Work Phone: Blood platelet mean volumeon 11-15-2021 Platelet mean volume (Bld) [Entitic vol] 10.9 fL 6.2-12.0 [facility] Work Phone: [phone] Calcium oxalate crystals det ection in urine sediment by light microscopyon 11-15-2021 Calcium oxalate crystals LM Ql (Urine sed) 1+ /hpf [facility] Work Phone: Determination of erythrocyte mean corpuscular volume (MCV)on 11-15-2021 MCV (RBC) [Entitic vol] 86.7 fL 80-94 [facility] Work Phone: Hematocrit Auto (Bld) [Volum e fraction]on 11-15-2021 Hematocrit (Bld) [Volume fraction] 50.2 % 40-54 [facility] Work Phone: Ketones Test strip Ql (U)on 11-15-2021 Ketones Ql (U) 5 mg/dl Negative [facility] Work Phone: Laboratory - Chemistry and C hemistry - challengeon 11-15-2021 ALP [Catalytic activity/Vol] 78 U/L 45-117 [facility] Work Phone: ALT [Catalytic activity/Vol] 48 U/L 16-61 [facility] Work Phone: CO2 [Moles/Vol] 28.0 mmol/L 21.0-32.0 [facility] Work Phone: Globulin (S) [Mass/Vol] 4.2 g/dL 2.2-4.2 [facility] Work Phone: Urea nitrogen/Creatinine [Mass ratio] 18.3 mg/mg 10-20 [facility] Work Phone: Laboratory - Hematology and Cell countson 11-15-2021 Erythrocyte distribution width (RBC) [Entitic vol] 42.3 fL 35.1-43.9 [facility] Work Phone: Erythrocyte distribution width (RBC) [Ratio] 13.5 % 11.6-14.6 [facility] Work Phone: Immature granulocytes/100 WBC (Bld) 0.400 % 0.0-0.9 [facility] Work Phone: Comment on above: IG% - Immature Granu locytes (promyelocytes, myelocytes and metamyelocytes) > 1% indicates that a LEFT SHIFT is Present. MCH (RBC) [Entitic mass] 29.5 pg 27.0-32.0 [facility] Work Phone: Nucleated RBC/100 WBC (Bld) [Ratio] 0 % 0-5 [facility] Work Phone: MCHC Auto (RBC) [Mass/Vol]on 11-15-2021 MCHC (RBC) [Mass/Vol] 34.1 g/dL 32-36 [facility] Work Phone: Mucus LM Ql (Urine sed)on Mucus Ql (Urine sed) 0 SEEN /hpf [facility] Work Phone: Nitrite Test strip Ql (U)on 11-15-2021 Nitrite Ql (U) Negative Negative [facility] Work Phone: No Panel Informationon 11-15 Estimated Creatinine Clearance Calc 75.82 ml/min [facility] Work Phone: Estimated GFR (MDRD) Amer 95 mL/min >60 [facility] Work Phone: Comment on above: GFR Calc Estimated GFR (MDRD) Non-Af Amer 78 mL/min >60 [facility] Work Phone: Comment on above: Non- GFR Calc Troponin I High Sensitivity < 3 pg/mL 3.0-78.0 [facility] Work Phone: Comment on above: Please Note: New Kelly t Units and Gender Specific Reference Ranges. For more information see Policy Stat Procedure [place] High Sensitivity Troponin (TNIH) and attachments. Platelets bldon 11-15-2021 Platelets (Bld) [#/Vol] 310 10*3/uL 150-450 [facility] Work Phone: Protein Test strip Ql (U)on 11-15-2021 Protein Ql (U) 30 mg/dl Negative [facility] Work Phone: Serum or plasma albumin liz urement (mass/volume)on 11-15-2021 Albumin [Mass/Vol] 3.7 g/dL 3.2-5.0 [facility] Work Phone: Serum or plasma albumin/glob ulin mass ratioon 11-15-2021 Albumin/Globulin [Mass ratio] 0.9 {ratio} 0.9-2.4 [facility] Work Phone: Serum or plasma calcium liz urement (mass/volume)on 11-15-2021 Calcium [Mass/Vol] 9.8 mg/dL 8.5-10.1 [facility] Work Phone: Serum or plasma creatinine m easurement (mass/volume)on 11-15-2021 Creatinine [Mass/Vol] 1.04 mg/dL 0.70-1.30 [facility] Work Phone: Comment on above: The validity of the calculated GFR & GFRAA in patients over 70 years has not been determined. Clinical correlation is essential. Serum or plasma urea nitroge n measurement (mass/volume)on 11-15-2021 Urea nitrogen [Mass/Vol] 19 mg/dL 7-18 [facility] Work Phone: Squamous epithelial cells de tection in urine sediment by light microscopyon 11-15-2021 Epithelial cells.squamous LM Ql (Urine sed) 0 SEEN /hpf [facility] Work Phone: Thin prep Papanicolaou smear with manual screeningon 11-15-2021 Thin prep Papanicolaou smear with manual screening 20 U/L 15-37 [facility] Work Phone: Thin prep Papanicolaou smear with manual screening 6 5-15 [facility] Work Phone: Urine blood detectionon 10-22 RBC Ql (U) 25 /ul Negative [facility] Work Phone: RBC Ql (U) 0-5 SEEN /hpf [facility] Work Phone: Urine clarityon 11-15-2021 Clarity (U) Clear Clear [facility] Work Phone: Urine color determinationon 11-15-2021 Color (U) Yellow Yellow [facility] Work Phone: Urine glucose detectionon Glucose Ql (U) Normal mg/dl Normal [facility] Work Phone: Urine leukocyte esterase det ection by dipstickon 11-15-2021 Leukocyte esterase Test strip Ql (U) 25 /ul Negative [facility] Work Phone: Urine pHon 11-15-2021 pH (U) 5.0 [pH] [facility] Work Phone: Urine sediment bacteria coun t by microscopy (number/high power field)on 11-15-2021 Bacteria LM.HPF (Urine sed) [#/Area] 1 /[HPF] None Seen [facility] Work Phone: Urine specific gravity measu rementon 11-15-2021 Specific gravity (U) [Rel density] 1.030 [facility] Work Phone: Urobilinogen Auto test strip Ql (U)on 11-15-2021 Urobilinogen Ql (U) 1 mg/dl Normal [facility] Work Phone: Basophil percentageon 2021 Chloride [Moles/Vol] 107 mmol/L 98-107 [facility] Work Phone: Glucose [Mass/Vol] 124 mg/dL 74-106 [facility] Work Phone: Comment on above: Fasting Glucose resu lt from 100 to 125 mg/dL suggests IMPAIRED HOMEOSTASIS per A.D.A. criteria. Potassium [Moles/Vol] 4.6 mmol/L 3.5-5.1 [facility] Work Phone: Sodium [Moles/Vol] 138 mmol/L 136-145 [facility] Work Phone: WBC (Bld) [#/Vol] 9.3 10*3/uL 4.4-11.0 [facility] Work Phone: Blood erythrocytes count (nu mber/volume)on 11-10-2021 RBC (Bld) [#/Vol] 4.86 10*6/uL 4.6-6.2 [facility] Work Phone: Blood hemoglobin measurement (mass/volume)on 11-10-2021 Hemoglobin (Bld) [Mass/Vol] 14.3 g/dL 13.0-16.5 [facility] Work Phone: Blood platelet mean volumeon 11-10-2021 Platelet mean volume (Bld) [Entitic vol] 11.1 fL 6.2-12.0 [facility] Work Phone: Determination of erythrocyte mean corpuscular volume (MCV)on 11-10-2021 MCV (RBC) [Entitic vol] 89.1 fL 80-94 [facility] Work Phone: Hematocrit Auto (Bld) [Volum e fraction]on 11-10-2021 Hematocrit (Bld) [Volume fraction] 43.3 % 40-54 [facility] Work Phone: Laboratory - Chemistry and C hemistry - challengeon 11-10-2021 CO2 [Moles/Vol] 27.0 mmol/L 21.0-32.0 [facility] Work Phone: Urea nitrogen/Creatinine [Mass ratio] 12.7 mg/mg 10-20 [facility] Work Phone: Laboratory - Hematology and Cell countson 11-10-2021 Erythrocyte distribution width (RBC) [Entitic vol] 43.2 fL 35.1-43.9 [facility] Work Phone: Erythrocyte distribution width (RBC) [Ratio] 13.2 % 11.6-14.6 [facility] Work Phone: MCH (RBC) [Entitic mass] 29.4 pg 27.0-32.0 [facility] Work Phone: MCHC Auto (RBC) [Mass/Vol]on 11-10-2021 MCHC (RBC) [Mass/Vol] 33.0 g/dL 32-36 [facility] Work Phone: No Panel Informationon 11-10 Estimated Creatinine Clearance Calc 83.88 ml/min [facility] Work Phone: Estimated GFR (MDRD) Amer 106 mL/min >60 [facility] Work Phone: Comment on above: GFR Calc Estimated GFR (MDRD) Non-Af Amer 87 mL/min >60 [facility] Work Phone: Comment on above: Non- GFR Calc Platelets bldon 11-10-2021 Platelets (Bld) [#/Vol] 183 10*3/uL 150-450 [facility] Work Phone: Serum or plasma calcium liz urement (mass/volume)on 11-10-2021 Calcium [Mass/Vol] 7.7 mg/dL 8.5-10.1 [facility] Work Phone: Serum or plasma creatinine m easurement (mass/volume)on 11-10-2021 Creatinine [Mass/Vol] 0.94 mg/dL 0.70-1.30 [facility] Work Phone: Comment on above: The validity of the calculated GFR & GFRAA in patients over 70 years has not been determined. Clinical correlation is essential. Serum or plasma urea nitroge n measurement (mass/volume)on 11-10-2021 Urea nitrogen [Mass/Vol] 12 mg/dL 7-18 [facility] Work Phone: Thin prep Papanicolaou smear with manual screeningon 11-10-2021 Thin prep Papanicolaou smear with manual screening 4 5-15 [facility] Work Phone: Glucose Glucometer (BldC) [M ass/Vol]on 11-09-2021 Glucose [Mass/Vol] 170 mg/dL 74-106 [facility] Work Phone: Comment on above: MANAGEMENT OF PATIEN T CARE PER NURSING PROTOCOL Laboratory - Chemistry and C hemistry - challengeon 11-04-2021 Magnesium [Mass/Vol] 2.0 mg/dL 1.6-2.6 [facility] Work Phone: CNPNon 10-12-2021 CNPN Telephone ([employer]) -------- MICHELA ZEPEDA ([id number]) 1965 M Date Time Provider Department 10/12/21 LISA LEI During your visit today, we recorded the following information about you: Lisa Lei RN 10/12/2021 2:18 PM Signed Called patient and discussed, patient's insurance in [place]. Will send message to Lucy to see if any other ideas, as he would like to stick with Dr. Garrido if possible. Pt also requesting referral from Dr. Garrido for in-network provider. Pt to send [employer] with attachment list of locations and will review with Dr. Garrido tomorrow. Will follow up with patient tomorrow after speaking with Dr. Garrido. 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 - metroNIDAZOLE (FLAGYL) 500 mg tablet Take 1 tablet by mouth at 9pm and take 1 tablet by mouth at 11pm the night before surgery. Problem List As Of Date: 10/12/2021 (None) Encounter Status:Closed by LISA LEI on 10/12/21 [facility] Geri 09-23-2021 [facility] Telephone ([employer]) -------- MICHELA ZEPEDA ([id number]) 1965 M Date Time Provider Department 09/23/21 LISA LEI During your visit today, we recorded the following information about you: Lisa Lei RN 09/23/2021 4:17 PM Signed Called patient, need to change surgery date. 11/03 for surgery, pt will do pre-ops in [place] on 10/31 including covid test. 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 Pt opted for 10/31 and pre-ops 10/28. Pt requesting [place] location, will see if [facility] available there, if not he will come to [place] for pre-ops. Pt agreed to plan and grateful for call. 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] Problem List As Of Date: 09/21/2021 (None) Encounter Status:Closed by LISA LEI on 09/21/21 [facility] CNOVon 09-20-2021 CNOV Office Visit (LOUIE ) -------- MICHELA ZEPEDA ([id number]) 1965 M Date Time Provider Department 09/20/21 3:30 PM CASSIA GARRIDO During your visit today, we recorded the following information about you: Temperature Pulse Respiration Blood pressure 97.1 degrees 81/minute 16/minute 128/87 Weight Height 70.9 kg 1.727 m Elkin Keen MD 09/20/2021 4:24 PM Attested -------- Attestation signed by Cassia Garrido MD at 09/20/2021 4:24 PM [facility] STAFF PHYSICIAN NOTE OF PERSONAL INVOLVEMENT IN CARE I have reviewed the consult note obtained and documented by the fellow and I personally participated in the roldan components. I have discussed the case and management of the patient's care. The following comments revise or confirm relevant roldan components of their note. IMPRESSION: This is a 56 year old male who presents with a right colon/ cecal polyp with ulceration and HGD PLAN: Procedure: Colonoscopy and possible polypectomy and lap vs open right colecotmy The risks, benefits and anticipated outcomes of the procedure, the risks and benefits of the alternatives to the procedure, and the roles and tasks of the personnel to be involved, were discussed with the patient, and the patient consents to the procedure and agrees to proceed. Counseled I could try to repeat scope and see if I could get out endoscopically or with CELS versus right colectomy and went through risks of cancer, perforation, need for stoma and he understands and wants to proceed with the colectomy. The lesion was reportedly in cecum but NO TATTOO so may need a scope. Plan of care discussed with Patient CARE COORDINATION: will find a date and get preops. SIGNATURE: Cassia Garrido MD DATE of SERVICE: September 20, 2021 TIME of SERVICE: 4:22 PM -------- COLORECTAL SURGERY New Patient Visit September 19, 2021 Chief Complaint: Cecal Polyp History of Present Illness: Michela Zepeda is a 56 year old year old male with history of sessile polyps of the cecum , first colonoscopy was performed in 2015, and had polyp in the cecum that was removed. He had another colonoscopy on 08/08/2021 that showed 30 mm poly with high grade dysplasia TV adenoma with ulceration. He is here to discuss surgical options. He is completely asymptomatic, no blood per stool, and no weight loss. He denies personal or family history of colon or rectal cancer or IBD. Scheduled for 10/10 Colonoscopy in OR, possible ICR Coming for pre-ops 10/0708/16/2021 VV w/ Dr. Garrido PLAN: Procedure: To the OR for attempted scope and removal and if unable then will proceed at the time for resection/ICR. Had coloscopy on 08/08/2021 Colonoscopy FINGINDS: -Staining chromoscopy with methylene blue was performed in the entire colon. Ragan chromoendoscopy technique was used. -Patchy inflammation, mild in severity and characterized by erythema and friability was found in the distal ileum. -The remainder of the exam in the TI was normal. -A 30mm polypoid lesion was found in the cecum. The lesion was flat. No bleeding was present. Biopsies were taken with a cold forceps for histology. Some areas were noted with a clearly defined boarder and in other areas the boarder was not easily appreciated. -A localized area of granular mucosa was found in the proximal ascending colon. Biopsies were taken with a cold forceps for histology. -A patchy area of granular mucosa was found in the transverse colon, biopsies were taken with a cold forceps for histology. -A patch area of granular and scarred mucosa was found in the proximal descending colon. Biopsies were taken with a cold forceps for histology. -A patch area of granular and scarred mucosa was found in the sigmoid colon. Biopsies were taken with a cold forceps for histology. - A 2mm polyp was found in the sigmoid colon. The polyp was sessile. The polyp was removed with a cold biopsy forceps. Resection and retrieval were complete. -A patchy area of granular and scarred mucosa was found in the rectum. Biopsies were taken with a cold forceps for histology. -Multiple small- mouthed diverticular were found in the sigmoid colon. -External and internal hemorrhoids were found. The hemorrhoids were small. 06/21/[address] Lind -Reviewed her biopsies and the topic of PSC and dysplasia on colon biopsies. -She is set up for chromoendoscopy next month, she will follow-up after this is done. Pending those results we will make a plan. -If there is evidence of HGD, I will have her consult at the [facility] for consideration of TAC, IPAA Hx: Crohn?s disease does not appear to be on biologics at this time. PSC. He had perforated appendicitis and had laparoscopic converted to open appendec (more content not included)... [facility] HISTORY PHYSICALon HISTORY PHYSICAL HNO ID: [id number] Author: Elkin Keen MD Service: ? Author Type: Fellow Type: HANDP Filed: 09/20/2021 4:24 PM Note Text: -------- Attestation signed by Cassia Garrido MD at 09/20/2021 4:24 PM [facility] STAFF PHYSICIAN NOTE OF PERSONAL INVOLVEMENT IN CARE I have reviewed the consult note obtained and documented by the fellow and I personally participated in the roldan components. I have discussed the case and management of the patient's care. The following comments revise or confirm relevant roldan components of their note. IMPRESSION: This is a 56 year old male who presents with a right colon/ cecal polyp with ulceration and HGD PLAN: Procedure: Colonoscopy and possible polypectomy and lap vs open right colecotmy The risks, benefits and anticipated outcomes of the procedure, the risks and benefits of the alternatives to the procedure, and the roles and tasks of the personnel to be involved, were discussed with the patient, and the patient consents to the procedure and agrees to proceed. Counseled I could try to repeat scope and see if I could get out endoscopically or with CELS versus right colectomy and went through risks of cancer, perforation, need for stoma and he understands and wants to proceed with the colectomy. The lesion was reportedly in cecum but NO TATTOO so may need a scope. Plan of care discussed with Patient CARE COORDINATION: will find a date and get preops. SIGNATURE: Cassia Garrido MD DATE of SERVICE: September 20, 2021 TIME of SERVICE: 4:22 PM -------- COLORECTAL SURGERY New Patient Visit September 19, 2021 Chief Complaint: Cecal Polyp History of Present Illness: Michela Zepeda is a 56 year old year old male with history of sessile polyps of the cecum , first colonoscopy was performed in 2015, and had polyp in the cecum that was removed. He had another colonoscopy on 08/08/2021 that showed 30 mm poly with high grade dysplasia TV adenoma with ulceration. He is here to discuss surgical options. He is completely asymptomatic, no blood per stool, and no weight loss. He denies personal or family history of colon or rectal cancer or IBD. Scheduled for 10/10 Colonoscopy in OR, possible ICR Coming for pre-ops 10/0708/16/2021 VV w/ Dr. Garrido PLAN: Procedure: To the OR for attempted scope and removal and if unable then will proceed at the time for resection/ICR. Had coloscopy on 08/08/2021 Colonoscopy FINGINDS: -Staining chromoscopy with methylene blue was performed in the entire colon. Ragan chromoendoscopy technique was used. -Patchy inflammation, mild in severity and characterized by erythema and friability was found in the distal ileum. -The remainder of the exam in the TI was normal. -A 30mm polypoid lesion was found in the cecum. The lesion was flat. No bleeding was present. Biopsies were taken with a cold forceps for histology. Some areas were noted with a clearly defined boarder and in other areas the boarder was not easily appreciated. -A localized area of granular mucosa was found in the proximal ascending colon. Biopsies were taken with a cold forceps for histology. -A patchy area of granular mucosa was found in the transverse colon, biopsies were taken with a cold forceps for histology. -A patch area of granular and scarred mucosa was found in the proximal descending colon. Biopsies were taken with a cold forceps for histology. -A patch area of granular and scarred mucosa was found in the sigmoid colon. Biopsies were taken with a cold forceps for histology. - A 2mm polyp was found in the sigmoid colon. The polyp was sessile. The polyp was removed with a cold biopsy forceps. Resection and retrieval were complete. -A patchy area of granular and scarred mucosa was found in the rectum. Biopsies were taken with a cold forceps for histology. -Multiple small- mouthed diverticular were found in the sigmoid colon. -External and internal hemorrhoids were found. The hemorrhoids were small. 06/21/[address] Lind -Reviewed her biopsies and the topic of PSC and dysplasia on colon biopsies. -She is set up for chromoendoscopy next month, she will follow-up after this is done. Pending those results we will make a plan. -If there is evidence of HGD, I will have her consult at the [facility] for consideration of TAC, IPAA Hx: Crohn?s disease does not appear to be on biologics at this time. PSC. He had perforated appendicitis and had laparoscopic converted to open appendectomy for perforated appendicitis. 2001 He is not a smoker. He drink alcohol occasionally. No past medical history on file. No past surgical history on file. No current outpatient medications on file. No current facility-administered medications for this visit. ALLERGIES No Known Allergies Review of Systems / (more content not included)... [facility] Vital Signs Date Time Vital Sign Value Performing Clinician Facility 10-04-2023 07:21-0400 Diastolic blood pressure 84 mm[Hg] [facility] 10-04-2023 07:21-0400 Systolic blood pressure 134 mm[Hg] [facility] 10-04-2023 05:24-0400 Body height 172.72 cm [facility] 10-04-2023 05:24-0400 Body mass index (BMI) [Ratio] 22.6 kg/m2 [facility] 10-04-2023 05:24-0400 Body temperature 97.9 [degF] [facility] 10-04-2023 05:24-0400 Body weight 67.4 kg [facility] 10-04-2023 05:24-0400 Heart rate 85 /min [facility] 10-04-2023 05:24-0400 Respiratory rate 18 /min [facility] 10-04-2023 05:24-0400 SaO2% (BldA) [Mass fraction] 98 % [facility] 11-23-2021 08:30-0400 Body temperature 97.6 [degF] Dr. Sven Mar Work Phone: [facility] Work Phone: 11-23-2021 08:30-0400 Diastolic blood pressure 78 mm[Hg] Dr. Sven Mar Work Phone: [facility] Work Phone: 11-23-2021 08:30-0400 Heart rate 112 /min Dr. Sven Mar Work Phone: [facility] Work Phone: 11-23-2021 08:30-0400 Respiratory rate 16 /min Dr. Sven Mar Work Phone: [facility] Work Phone: 11-23-2021 08:30-0400 SaO2% (BldA) [Mass fraction] 97 % Dr. Sven Mar Work Phone: [facility] Work Phone: 11-23-2021 08:30-0400 Systolic blood pressure 110 mm[Hg] Dr. Sven Mar Work Phone: [facility] Work Phone: 11-21-2021 14:51-0400 Body height 172.[address] Sven Mar Work Phone: [facility] Work Phone: 11-21-2021 14:51-0400 Body weight 68.[address] Sven Mar Work Phone: [facility] Work Phone: 11-17-2021 12:46-0400 Body mass index (BMI) [Ratio] 23 kg/m2 Dr. Sven Mar Work Phone: [facility] Work Phone: 11-16-2021 00:08-0400 Body temperature 97.7 [degF] Dr. Sven Mar Work Phone: [facility] Work Phone: 11-16-2021 00:08-0400 Diastolic blood pressure 89 mm[Hg] Dr. Sven Mar Work Phone: [facility] Work Phone: 11-16-2021 00:08-0400 Heart rate 82 /min Dr. Sven Mar Work Phone: [facility] Work Phone: 11-16-2021 00:08-0400 Respiratory rate 18 /min Dr. Sven Mar Work Phone: [facility] Work Phone: 11-16-2021 00:08-0400 SaO2% (BldA) [Mass fraction] 95 % Dr. Sven Mar Work Phone: [facility] Work Phone: 11-16-2021 00:08-0400 Systolic blood pressure 145 mm[Hg] Dr. Sven Mar Work Phone: [facility] Work Phone: 11-15-2021 20:15-0400 Body height 172.[address] Sven Mar Work Phone: [facility] Work Phone: 11-15-2021 20:15-0400 Body mass index (BMI) [Ratio] 23.7 kg/m2 Dr. Sven Mar Work Phone: [facility] Work Phone: 11-15-2021 20:15-0400 Body weight 70.[address] Sven Mar Work Phone: [facility] Work Phone: 11-11-2021 08:20-0400 Body temperature 98 [degF] Dr. Sven Mar Work Phone: [facility] Work Phone: 11-11-2021 08:20-0400 Diastolic blood pressure 84 mm[Hg] Dr. Sven Mar Work Phone: [facility] Work Phone: 11-11-2021 08:20-0400 Heart rate 75 /min Dr. Sven Mar Work Phone: [facility] Work Phone: 11-11-2021 08:20-0400 Respiratory rate 14 /min Dr. Sven Mar Work Phone: [facility] Work Phone: 11-11-2021 08:20-0400 SaO2% (BldA) [Mass fraction] 94 % Dr. Sven Mar Work Phone: [facility] Work Phone: 11-11-2021 08:20-0400 Systolic blood pressure 131 mm[Hg] Dr. Sven Mar Work Phone: [facility] Work Phone: 11-10-2021 11:07-0400 Body weight 68.[address] Sven Mar Work Phone: [facility] Work Phone: 11-09-2021 15:17-0400 Body mass index (BMI) [Ratio] 22.9 kg/m2 Dr. Sven Mar Work Phone: [facility] Work Phone: 11-01-2021 12:48-0400 Body mass index (BMI) [Ratio] 23.7 kg/m2 Dr. Sven Mar Work Phone: [facility] Work Phone: 11-01-2021 12:48-0400 Body temperature 97.6 [degF] Dr. Sven Mar Work Phone: [facility] Work Phone: 11-01-2021 12:48-0400 Body weight 70.[address] Sven Mar Work Phone: [facility] Work Phone: 11-01-2021 12:48-0400 Diastolic blood pressure 87 mm[Hg] Dr. Sven Mar Work Phone: [facility] Work Phone: 11-01-2021 12:48-0400 Heart rate 64 /min Dr. Sven Mar Work Phone: [facility] Work Phone: 11-01-2021 12:48-0400 Respiratory rate 18 /min Dr. Sven Mar Work Phone: [facility] Work Phone: 11-01-2021 12:48-0400 SaO2% (BldA) [Mass fraction] 99 % Dr. Sven Mar Work Phone: [facility] Work Phone: 11-01-2021 12:48-0400 Systolic blood pressure 129 mm[Hg] Dr. Sven Mar Work Phone: [facility] Work Phone: 08-08-2021 11:41-0500 Diastolic Blood Pressure NBP [address] NEHA VAZQUEZ MD [facility] 08-08-2021 11:41-0500 Heart rate 74 /min DR NEHA VAZQUEZ MD [facility] 08-08-2021 11:41-0500 Respiratory rate 18 /min DR NEHA VAZQUEZ MD [facility] 08-08-2021 11:41-0500 Systolic Blood Pressure NBP [address] NEHA VAZQUEZ MD [facility] 08-08-2021 11:32-0500 Diastolic Blood Pressure NBP [address] NEHA VAZQUEZ MD [facility] 08-08-2021 11:32-0500 Heart rate 78 /min DR NEHA VAZQUEZ MD [facility] 08-08-2021 11:32-0500 Respiratory rate 12 /min DR NEHA VAZQUEZ MD [facility] 08-08-2021 11:32-0500 Systolic Blood Pressure NBP [address] NEHA VAZQUEZ MD [facility] 08-08-2021 11:18-0500 Diastolic Blood Pressure NBP [address] NEHA VAZQUEZ MD [facility] 08-08-2021 11:18-0500 Respiratory rate 13 /min DR NEHA VAZQUEZ MD [facility] 08-08-2021 11:18-0500 Systolic Blood Pressure NBP [address] NEHA VAZQUEZ MD [facility] 08-08-2021 11:09-0500 Heart rate 95 /min DR NEHA VAZQUEZ MD [facility] 08-08-2021 11:04-0500 Body temperature 97.34 [degF] DR NEHA VAZQUEZ MD [facility] 08-08-2021 11:04-0500 Heart rate 99 /min DR NEHA VAZQUEZ MD [facility] 08-08-2021 08:23-0500 Body height [address] NEHA VAZQUEZ MD [facility] 08-08-2021 08:23-0500 Body temperature 95.9 [degF] DR NEHA VAZQUEZ MD [facility] 08-08-2021 08:23-0500 Body weight 70.[address] NEHA VAZQUEZ MD [facility] 08-08-2021 08:23-0500 Body weight 23.83 kg/m2 DR NEHA VAZQUEZ MD [facility] 08-08-2021 08:23-0500 diastolic 98 mm[Hg] DR NEHA VAZQUEZ MD [facility] 08-08-2021 08:23-0500 Heart rate 89 /min DR NEHA VAZQUEZ MD [facility] 08-08-2021 08:23-0500 systolic 127 mm[Hg] DR NEHA VAZQUEZ MD [facility] Encounters Encounter Date Encounter Type Care Provider Facility Start: 12-06-2023 End: 12-06-2023 ambulatory Chino Neely Facility:[facility] Start: 10-25-2023 End: 10-25-2023 ambulatory Chino Neely [facility] Work Phone: Start: 10-25-2023 End: 10-25-2023 Patient encounter procedure [facility] Work Phone: Start: 10-09-2023 End: 10-10-[address] CHINO NEELY MD Facility:[facility] Start: 10-09-2023 End: 10-09-[address] CHINO NEELY MD [facility] Start: 10-04-2023 End: 10-04-2023 Emergency department patient visit rGayson Alfonso Facility:[facility] Start: 10-04-2023 End: 10-04-2023 Emergency department patient visit [facility] Work Phone: Start: 11-23-2021 Non-patient / Non-visit Dr. Armen Mar Work Phone: [facility] Start: 11-22-2021 Non-patient / Non-visit Dr. Armen Mar Work Phone: [facility] Start: 11-20-2021 Non-patient / Non-visit Dr. Armen Mar Work Phone: [facility] Start: 11-19-2021 Non-patient / Non-visit Dr. Armen Mar Work Phone: [facility] Start: 11-18-2021 Non-patient / Non-visit Dr. Armen Mar Work Phone: [facility] Start: 11-17-2021 Non-patient / Non-visit Dr. Armen Mar Work Phone: [facility] Start: 11-16-2021 End: 11-23-2021 Evaluation and management of inpatient Dr. Sven Mar Work Phone: [facility] Start: 11-16-2021 Non-patient / Non-visit Dr. Armen Mar Work Phone: [facility] Start: 11-16-2021 Evaluation and management of inpatient Dr. Sven Mar Work Phone: [facility] Start: 11-11-2021 Non-patient / Non-visit Dr. Armen Mar Work Phone: [facility] Start: 11-10-2021 Non-patient / Non-visit Dr. Armen Mar Work Phone: [facility] Start: 11-09-2021 Non-patient / Non-visit Dr. Armen Mar Work Phone: [facility] Start: 11-09-2021 End: 11-11-2021 Evaluation and management of inpatient Dr. Sven Mar Work Phone: [facility] Start: 11-04-2021 Non-patient / Non-visit Dr. Armen Mar Work Phone: [facility] Start: 11-01-2021 End: 11-01-[address] Sven Mar Work Phone: [facility] Start: 08-08-2021 End: 08-08-[address] NEHA VAZQUEZ MD [facility] Procedures Date Procedure Procedure Detail Performing Clinician Start: 10-25-2023 Diagnostic radiograp hy of abdomen Start: 10-04-2023 Urine culture Start: 10-04-2023 CT of abdomen and pe lvis without contrast Start: 11-22-2021 Plain X-ray abdomen Dr. Sven Mar Work Phone: Start: 11-21-2021 Plain X-ray abdomen Dr. Sven Mar Work Phone: Start: 11-17-[address] Sven Mar Work Phone: Start: 11-17-2021 Plain X-ray abdomen Dr. Sven Mar Work Phone: Start: 11-16-[address] Sven Mar Work Phone: Start: 11-16-2021 Plain X-ray abdomen Dr. Sven Mar Work Phone: Start: 11-15-2021 Computed tomography of abdomen and pelvis with contrast Dr. Sven Mar Work Phone: Start: 11-09-[address] Sven Mar Work Phone: Start: 10-18-[address] NEHA VAZQUEZ MD Appendectomy DR NEHA BACON MD Extracorporeal shock wave lithotripsy of the bile duct DR NEHA VAZQUEZ MD Tonsillectomy and adenoidectomy DR NEHA VAZQUEZ MD Plan of Treatment Date Care Activity Detail Author Start: 10-04-2023 Bacteria identified in Urine by Culture [facility] Start: 10-04-2023 [facility] Patient Education Urinary Tract Infections in Men ED Kidney Stone with Pain [facility] Work Phone: Patient referral [facility] Work Phone: Immunizations Immunization Date Immunization Notes Care Provider Fa cility 08-12-2021 Covid (Pfizer) Dr. Eric Mar Work Phone: [facility] 01-21-2021 Covid (Pfizer) Dr. Eric Mar Work Phone: [facility] 12-23-2020 Covid (Pfizer) Dr. Eric Mar Work Phone: [facility] Payers Date Payer Category Payer Unknown [id number] 2023 Self-pay [id number] 2023 Unknown [id number] 2013 Unknown [id number] 1965 Unknown [id number] Unknown [id number] Unknown [id number] Unknown [id number] Unknown [id number] Social History Date Type Detail Facility Start: 08-08-2021 Never smoked t obreynold (finding) [facility] Sex Assigned At [facility] Start: 11-15-2021 End: 10-04-2023 Tobacco smoking status NHIS Unknown if ever smoked [facility] Start: 1965 Sex Assigned At Male [facility] Medical Equipment Procedure Code Equipment Code Equipment Origin al Text Equipment Identifier Dates Laparoscopy, exploratory RELOAD, SR75 SELECTABLE FDA Start: 11-17-2021 Laparoscopy, exploratory RELOAD, SR75 SELECTABLE FDA Start: 11-17-2021 Laparoscopy, exploratory RELOAD, SR75 SELECTABLE FDA Start: 11-17-2021 Laparoscopy, exploratory Open-surgery manual linear cutting stapler, single-use [id number] FDA Start: 11-17-2021 Laparoscopy, exploratory RELOAD, SR75 SELECTABLE FDA Start: 11-17-2021 Laparoscopy, exploratory RELOAD, SR75 SELECTABLE FDA Start: 11-17-2021 Laparoscopy, exploratory RELOAD, SR75 SELECTABLE FDA Start: 11-17-2021 Laparoscopy, exploratory RELOAD, SR75 SELECTABLE FDA Start: 11-17-2021 Laparoscopy, exploratory RELOAD, SR75 SELECTABLE FDA Start: 11-17-2021 Laparoscopy, exploratory RELOAD, SR75 SELECTABLE FDA Start: 11-17-2021 RELOAD, SR75 SELECTABLE FDA Start: 11-09-2021 RELOAD, SR75 SELECTABLE FDA Start: 11-09-2021 RELOAD, SR75 SELECTABLE FDA Start: 11-09-2021 RELOAD, SR75 SELECTABLE FDA Start: 11-09-2021 RAF YIN FDA Start: 11-09-2021 RELOAD, SR75 SELECTABLE FDA Start: 11-09-2021 RELOAD, SR75 SELECTABLE FDA Start: 11-09-2021 RELOAD, SR75 SELECTABLE FDA Start: 11-09-2021 RELOAD, SR75 SELECTABLE FDA Start: 11-09-2021 RAF YIN FDA Start: 11-09-2021 RELOAD, SR75 SELECTABLE FDA Start: 11-09-2021 RELOAD, SR75 SELECTABLE FDA Start: 11-09-2021 RELOAD, SR75 SELECTABLE FDA Start: 11-09-2021 RELOAD, SR75 SELECTABLE FDA Start: 11-09-2021 [id number] FDA Start: 11-09-2021 RELOAD, SR75 SELECTABLE FDA Start: 11-09-2021 RELOAD, SR75 SELECTABLE FDA Start: 11-09-2021 RELOAD, SR75 SELECTABLE FDA Start: 11-09-2021 RELOAD, SR75 SELECTABLE FDA Start: 11-09-2021 RAF YIN FDA Start: 11-09-2021 Functional Status Date Assessment Result Facility 11-23-2021 Functional status Ambulates;Chair [facility] Work Phone: 11-11-2021 Functional status Activity Ability Indepe ndent [facility] Work Phone: 11-10-2021 Functional status Ambulates [facility] Work Phone: Mental Status Date Assessment Result Facility 11-23-2021 Cognitive function Voice/Name [facility] Work Phone: 11-15-2021 Cognitive function Level Of Cons ciousness Awake;Alert;Appropriate;Follow s Commands [facility] Work Phone: 11-10-2021 Cognitive function Voice/Name;Touch/Shaki ng [facility] Work Phone: Clinical Notes 08-08-2021 Note Date & Type Note Facility 08-08-2021 Evaluation + Plan note Extrac bee from: Title:Clinical Document Author:NEHA VAZQUEZ Date:08/08/21 [place] ADMISSION HISTORY A [place] PHYSICIAL CHIEF COMPLAINT: HISTORY OF PRESENT ILLNESS: REVIEW OF SYSTEMS: ACTIVE PROBLEMS: No qualifying data available for Problems MEDICATIONS: Active Inpt Meds: None Active PRN Meds: None One Time Meds: None Active IV Meds: Lactated Ringers Infusion 1,000 mL (LR 1,000 mL) Start: 08/08/21 8:18:00 EST, Rate: 50 mL/hr ALLERGIES: (1) sulfamethoxazole FAMILY HISTORY: SOCIAL HISTORY: PHYSICAL EXAM: VITALS: KimqwzPgttYMTytcgOOWeB4IGH2UrzgAu(kg) 08/08 08:[id number]/17 70.5 24 Hr Tmax: 35.5 at 08/08 [...] changes to the H&P unless noted below. [facility] 01-17-2022 Hospital Discharge instructions Patient Education 08/08/2021 11:14:28 Moderate Conscious Sedation, Adult, Care After Moderate Conscious Sedation, Adult, Care After These instructions provide you with information about caring for yourself after your procedure. Your health care provider may also give you more specific instructions. Your treatment has been plannedaccording to current medical practices, but problems sometimes [...] until you are awake and alert. Take fxlg-cab-ygpuymk and prescription medicines only as told by [...] 04/29/2014 Document Revised: 06/21/2018 Document Reviewed: 10/28/2016 [employer] Patient Education 2020 [employer]. 08/08/2021 11:13:53 Colonoscopy, Adult, Care After, Bvpc-hg-Qlem Colonoscopy, Adult, Care After This sheet gives [...] are soft and easy to digest. Take uhll-cpo-axznicg or prescription medicines only as told by [...] 08/11/2011 Document Revised: 05/09/2018 Document Reviewed: 04/02/2017 [employer] Patient Education 2020 [employer]. 08/08/2021 11:13:48 Colon Biopsy, Care After Colon [...] a slower pace than normal. ?Eat soft, eoks-zf-adrukk foods. ?Rest often. Take fdwz-fjb-pgnhjhr or prescription medicines only as told by [...] 12/18/2017 Document Revised: 06/21/2018 Document Reviewed: 12/18/2017 [employer] Patient Education 2019 [employer]. Follow Up Care 07/12/2021 15:09:59 With:NEHA VAZQUEZ MD Address: [phone] When: Unknown Comments:OFFICE WILL CALL WITH PATHOLOGY RESULTS IN 7-10 DAYS. RETURN FOR ANOTHER COLONOSCOPY IN 6-12 MONTHS. NO NSAIDS FOR 5 DAYS, TYLENOL ONLY FOR PAIN. [facility] Chief complaint+Reason for visit Narrative* Chief Complaint Discuss Surgical Pro cedure C-Scope? ERAS, RT LAP CHERYLE COLECTOMY ERAS, RT LAP CHERYLE COLECTOMY ERAS, RT LAP CHERYLE COLECTOMY ERAS, RT LAP CHERYLE COLECTOMY ERAS, RT LAP CHERYLE COLECTOMY ILEUS/SBO, LACTIC ACIDOSIS ILEUS/SBO, LACTIC ACIDOSIS Reason for Visit High grade dysplasia in colonic adenoma High grade dysplasia in colonic adenoma Acidosis, lactic Postoperative ileus Small bowel obstruction [facility] Work Phone: Chief complaint+Reason for visit Narrative* Chief Complaint Discuss Surgical Pro cedure C-Scope? ERAS, RT LAP CHERYLE COLECTOMY ERAS, RT LAP CHERYLE COLECTOMY ERAS, RT LAP CHERYLE COLECTOMY ERAS, RT LAP CHERYLE COLECTOMY ERAS, RT LAP CHERYLE COLECTOMY ILEUS/SBO, LACTIC ACIDOSIS POSTOPERATIVE ILEUS POSTOPERATIVE ILEUS POSTOPERATIVE ILEUS POSTOPERATIVE ILEUS POSTOPERATIVE ILEUS POSTOPERATIVE ILEUS POSTOPERATIVE ILEUS Reason for Visit Acidosis, lactic Postoperative ileus Small bowel obstruction [facility] Work Phone: Discharge summary Author Grayson Alfosno [facility] October 04, 2023 8:40am Note Date/Time October 04, 2023 7:4 4am [facility] Medical Records Department [address] [place] [id number] Emergency Department Summary 10/04/23 MR#: [id number] Acct: [id number] Name: MICHELA ZEPEDA Rep #:[id number] : [id number] From: Grayson Alfonso DO PCP: Dr. Sven Mar MD Status: REG ER Location: ED HPI History of Present Illness Chief Complaint: Flank Pain Informant: patient Narrative Narrative: Patient is a 58-year-old male with history of ADHD and depression as well as previous colectomy and also remote history of kidney stones. He states that last night he noticed bilateral flank pain which was greatest on the left that came on while sleeping. He states that this feels similar nature to his previous kidney stone. He denies any dysuria or hematuria he denies any recent trauma or excessive activity. He states in the past his stones have been so large as they needed lithotripsy. He has concern for this once again and therefore comes in for evaluation [facility] Medical History ADHD Anxiety Colon polyp COVID Depression Hemorrhoids High grade dysplasia in colonic adenoma Non-smoker Stone, kidney Home Medications methylphenidate HCl 36 mg tablet,extended release 24 hr (Concerta) 72 mg PO DAILY ADHD 04/16/14 [History Last Taken Unknown] cholecalciferol (vitamin D3) 25 mcg (1,000 unit) tablet (Vitamin D3) 1,000 unit PO DAILY SUPPLEMENT 02/11/18 [History Last Taken Unknown] bupropion HCl 150 mg 24 hr tablet, extended release 150 mg PO DAILY mental health 11/01/21 [History Last Taken Unknown] acetaminophen 500 mg tablet 650 mg (1.3 x 500 mg) PO Q6 PRN Abdominal Pain #0 tabs 11/11/21 [Rx Last Taken Unknown] ibuprofen 600 mg tablet 600 mg PO Q6H PRN PRN Pain Score 4-10 #0 tabs 11/11/21 [Rx Last Taken Unknown] cephalexin 500 mg capsule 500 mg PO TID 7 days #21 caps 10/04/23 [Rx Last Taken Unknown] ketorolac 10 mg tablet 10 mg PO 4X/DAY PRN PRN pain 5 days #20 tabs 10/04/23 [Rx Last Taken Unknown] ondansetron 4 mg disintegrating tablet 4 mg PO TID PRN nausea and vomiting #21 tabs 10/04/23 [Rx Last Taken Unknown] oxycodone-acetaminophen 5 mg-325 mg tablet (Percocet) 1 tab PO Q6H PRN pain 3 days #12 tabs 10/04/23 [Rx Last Taken Unknown] tamsulosin 0.4 mg capsule (Flomax) 0.4 mg PO DAILY #14 caps 10/04/23 [Rx Last Taken Unknown] Allergy/AdvReac Type Severity Reaction Status Date / Time Sulfa (Sulfonamide Allergy Unknown Verified 10/04/23 05:30 Antibiotics) Family History Mother Diabetes Cancer skin Father Diabetes Thyroid disorder Surgical History H/O right hemicolectomy History of colonoscopy History of lithotripsy S/P appendectomy S/P tonsillectomy Social History Smoking Status: Never smoker alcohol intake: current ROS ROS ED Constitutional Constitutional ED: Denies chills or fever(s) ENT ENT ED: Denies sore throat Cardiovascular Cardiovascular: Denies chest pain Respiratory/Chest Respiratory/Chest: Denies cough or dyspnea Gastrointestinal Gastrointestinal: Reports abdominal pain and nausea; Denies diarrhea or vomiting Genitourinary Genitourinary ED: Reports other Details: Positive flank pain ; Denies dysuria Musculoskeletal Musculoskeletal: Reports back pain; Denies myalgias Integumentary Denies rash Neurologic Neurologic: Denies headache(s) Hematologic/Lymphatic Hematologic/Lymphatic: Denies easy bleeding or easy bruising EXAM Physical Exam Const Vital Signs: 10/04/23 05:24 10/04/23 07:21 Temperature 97.9 F Temperature Source Temporal Pulse Rate 85 Respiratory Rate 18 Blood Pressure 155/91 H 134/84 H Blood Pressure Mean 112 100 Pulse Ox 98 Oxygen Delivery Method Room Air Positive well nourished and well developed General Appearance ED: well developed; Negative for pallor HEENT HEENT Narrative: Normocephalic atraumatic Eyes PERRL and EOMs intact bilaterally General Eye ED: Negative for scleral icterus Neck supple Resp normal respiratory effort and clear to auscultation bilaterally Cardio regular rate and regular rhythm Rate: other Other Details: Heart is regular rate and rhythm without murmurs rubsor gallops Radial and carotid pulses are equal and symmetric GI non-distended GI Narrative: Abdomen is soft and nondistended with normal active bowel sounds. Patient has mild pain to palpation along the left mid to upper abdomen without voluntary guarding or rigidity No pulsatile mass or fluid wave Auscultation: normoactive bowel sounds Palpation: soft Back/Spine Back/Spine Narrative: Positive bilateral CVA pain Extremity normal to inspection Neuro oriented x3, CN's II-XII intact bilaterally and no sensory deficits noted Sensorium / Orientation: alert Motor Exam: strength 5/5 throughout Psych mental status grossly normal Skin no rashes or lesions noted General Skin Exam: Negative for jaundice or pallor MDM MDM MDM Narrative Medical decision making narrative: Patient presented to the ER hypertensive but otherwise with stable vitals. History and exam is concerning for kidney stone versus pyelonephritis versus acute kidney injury versus electrolyte abnormality. Patient blood work was obtained based on his history and exam pointing towards kidney stone as the maincause of his symptoms. Labs showed no leukocytosis but I did show large amount of blood white blood cells and bacteria in the urine sample concerning for UTI and kidney stone. Moreover the patient's creatinine does correlate with acute kidney injury as his baseline is 0.6 and today his creatinine is reading 1.83. CT scan showed 0.3 cm stone in the left ureter with mild hydronephrosis and thena 1.9 centimeters stone in the right kidney at the renal pelvis in your vesicular junction causing moderate hydronephrosis. The patient does not have signs of urosepsis but with his infection and 2 stones leading to obstruction and hydronephrosis and acute kidney injury I do feel he would benefit from inpatient treatment. Urology is not on-call at this time however. Therefore the case was reached out to [facility] and [facility] to discuss the case with urology and get their opinion on whether patient should beadmitted to their facility or not. Unfortunately I could not reach a urologist and the patient is becoming frustrated with being in the hospital and states he wishes to go home at this time. He is not uroseptic and his pain is controlled in the ER. The 1 issue we talked about is that he is showing signs of acute kidney injury with his creatinine going from his baseline of 0.6-1.8. Patient states that he has had large stones like this in the past and has always been able to deal with them on an outpatient basis. Therefore I will place the patient on antibiotics as well as pain medication and Flomax and he will follow-up with urology as an outpatient or return to the ER if his symptoms worsen or fail to improve History & Record Review Discussion w/independent historian: Patient Lab Data Attestation: I reviewed the patient's lab results. Labs: Laboratory Results - last 24 hr 10/04/23 10/04/23 05:30 05:35 WBC 9.5 RBC 5.34 Hgb 15.3 Hct 47.2 MCV 88.4 MCH 28.7 MCHC 32.4 RDW Std Deviation 42.7 RDW Coeff of Denzel 13.2 Plt Count 281 MPV 10.6 Immature Gran % (Auto) 0.400 Neut % (Auto) 72.6 H Lymph % (Auto) 19.4 Evangeline % (Auto) 5.9 Eos % (Auto) 1.2 Baso % (Auto) 0.5 Absolute Neuts (auto) 6.9 Absolute Lymphs (auto) 1.83 Nucleated RBC % 0 Sodium 140 Potassium 3.9 Chloride 107 Carbon Dioxide 26.0 Anion Gap 7 BUN 24 H Creatinine 1.83 H Estim Creat Clear Calc 41.43 Est GFR (MDRD) Af Amer 49 L Est GFR (MDRD) Non-Af 41 L BUN/Creatinine Ratio 13.1 Glucose 111 H Calcium 8.5 Urine Color Yellow Urine Clarity Clear Urine pH 5.0 Ur Specific Pierson 1.025 Urine Protein 30 H Urine Glucose (UA) Normal Urine Ketones 5 H Urine Occult Blood 250 H Urine Nitrite Negative Urine Bilirubin 1 H Urine Urobilinogen 1 H Ur Leukocyte Esterase 500 H Urine RBC > 100 SEEN Urine WBC >100 SEEN Ur Squamous Epith Cells 0 SEEN Ur Transition Epith Cell 0 SEEN Ur Renal Epithelial Cell 0 SEEN Urine Bacteria 3+ Urine Mucus 0 SEEN Radiography Diagnostic Testing: Clinical Impression(s) from Imaging Studies Abdomen/Pelvis CT 10/04/23 05:39 IMPRESSION: Mild left hydroureteronephrosis with a mid ureteral calculus measuring 0.3 cm seen. Moderate right hydronephrosis with a prominent calculus at the ureteropelvic junction. Multiple additional bilateral renal calculi seen. Electronically Signed: Bobby Castillo MD at 6:40 EDT Reading Location ID and State: [address] [place] [address] Tel , Service support , Discharge Plan Triage Chief Complaint: Flank Pain ED Provider: Grayson Alfonso Dx/Rx/DC Orders Clinical Impression: Acute kidney injury, UTI (urinary tract infection), Renal colic, Kidney stones Instructions: Urinary Tract Infections in Men, ED Kidney Stone with Pain Prescriptions: New oxycodone-acetaminophen [Percocet] 5-325 mg tablet 1 tab PO Q6H PRN (Reason: pain) 3 Days Qty: 12 0RF cephalexin 500 mg capsule 500 mg PO TID 7 Days Qty: 21 0RF ketorolac 10 mg tablet 10 mg PO 4X/DAY PRN PRN (Reason: pain) 5 Days Qty: 20 0RF tamsulosin [Flomax] 0.4 mg capsule 0.4 mg PO DAILY Qty: 14 0RF ondansetron 4 mg tablet,disintegrating 4 mg PO TID PRN (Reason: nausea and vomiting) Qty: 21 0RF No Action bupropion HCl 150 mg tablet extended release 24 hr 150 mg PO DAILY methylphenidate HCl [Concerta] 36 MG tablet extended release 24hr 72 mg PO DAILY cholecalciferol (vitamin D3) [Vitamin D3] 1,000 UNIT tablet 1,000 unit PO DAILY acetaminophen 500 mg Tablet 650 mg PO Q6 PRN (Reason: Abdominal Pain) Qty: 0 0RF ibuprofen 600 mg Tablet 600 mg PO Q6H PRN PRN (Reason: Pain Score 4-10) Qty: 0 0RF Primary Care Provider: Sven Mar Referrals: Sven Mar MD [Primary Care Provider] - Chino Neely MD [Med Staff - Active Staff] - Activity Restrictions/Additional Instructions: Please keep yourself well-hydrated and stay active to help try and pass your kidney stones. Based on the large nature of the right-sided kidney stone you may need lithotripsy. Contact urology for repeat evaluation. If you develop a fever of 100.4 or higher or have intractable pain despite taking her medicationsreturn to the ER for repeat evaluation Disposition Disposition: Home, Self Care What to do if you have Problems For any increased pain, shortness of breath, bleeding, nausea or vomiting, chestpain, or any unexpected problems, contact your Primary Care Provider. Call [facility] ([phone]) or report to the closest Emergency Room. Call 911 if necessary. 10/04/23 0840 <Electronically signed by Grayson Alfonso DO> Cosigner Signature (if applicable): CC: Dr. Sven Mar MD ~ Signed [facility] Work Phone: Evaluation note* Diagnosis Onset Date Resolution Status High grade dysplasia in colonic adenoma acute High grade dysplasia in colonic adenoma acute Acidosis, lactic acute Postoperative ileus acute Small bowel obstruction acut e [facility] Work Phone: Evaluation note* Diagnosis Onset Date Resolution Status Acidosis, lactic acute [facility]operative ileus acute [facility] Evaluation noteNo assessment information available [facility] Work Phone: Hospital course Narrative No data available for this section [facility] Discharge instructions Additional Instructions Please keep yourself well-hydrated and stay active to help try and pass your kidney stones. Based on the large nature of the right-sided kidney stone you may need lithotripsy. Contact urology for repeat evaluation. If you develop a fever of 100.4 or higher or have intractable pain despite taking her medications [facility] Work Phone: Hospital Discharge instructions No data available for this section [facility] Progress note No data available for this section [facility] Summary Purpose Family History No Family History Records Found Relationship Condition Age at Onset Recorded Date/T tanvir mother Diabetes mellitus Unknown Malignant neoplasm Unknown father Diabetes mellitus Unknown Disorder of thyroid Unknown Advance Directives No Advanced Directives Records Found Advance Directive Response Recorded Date/ Time Advance Directives No March 2:17pm Living Will No November 15, 2021 8:29pm Power of Construction Teacher No November 15 8:29pm Advance Directive Response Recorded Date/ Time Advance Directives No March 2:17pm Living Will No November 16, 2021 12:55am Power of Construction Teacher No November 16 12:55am Advance Directive Response Recorded Date/ Time Advance Directives No March 2:17pm Living Will No October 04, 2023 5:25am Power of Construction Teacher No October 03 5:25am Chief Complaint and Reason for Visit Chief Complaint FLANK PAIN Additional Source Comments (unrecognized sect ion and content) No Status Records FoundNo Status Records FoundNo Status Records Found INFORMATION SOURCE (unrecogn ized section and content) DATE CREATED AUTHOR 10/14/2021 [facility] DATE CREATED AUTHOR AUTHOR'S ORGANIZ ATION 10/10/2023 [facility] ([place] DATE CREATED AUTHOR AUTHOR'S ORGANIZ ATION 12/14/2023 [facility] Goals (unrecognized section and content) Goals may be documented in a n alternate section Care Teams (unrecognized sec tion and content) Team Status: Active Member Role Status Dates Dr. Sven Mar MD Family Provider Active Dr. Sven Mar MD Primary Care Provider Activ e Team Status: Inactive Member Role Status Dates Dr. Sven Mar MD Primary Care Provider Activ e Dr. Grayson Alfonso DO Emergency Provider Active Team Status: Active Member Role Status Dates Dr. Lashonda Mar MD Family Provider Active Dr. Lashonda Mar MD Primary Care Provider Acti ve Team Status: Inactive Member Role Status Dates Dr. Lashonda Mar MD Primary Care Provider Acti ve Dr. Chino Neely MD Attending Provider, Referr ing Provider Active Team Status: Inactive Member Role Status Dates Dr. Lashonda Mar MD Primary Care Provider Acti ve Dr. Grayson Alfonso DO Attending Provider, Emergency Pr ovider Active FOR RECORDS PERTAINING TO PATIENTS WHO ARE [...] BE BASED ON THE PRIMARY CLINICAL RECORDS. [facility] [employer] provides no warranty or guarantee of the accuracy or completeness of information in this document.
[2025-03-12 11:00] LABS: Anion Gap 14 (5-15); BUN 15 mg/dL (4-19); BUN/Creat Ratio 15.1 RATIO (10-20); Calcium,Total 9.3 mg/dL (7.6-11.0); Carbon Dioxide 22.9 mmol/L (21.0-32.0); Chloride 104 mmol/L (98-108); Cholesterol 170 mg/dL (<=200); Glucose 99 mg/dL (70-99); Low Density Lipoprotein Calc. 99 mg/dL; PSA,Total - Annual Screen 4.44 ng/mL (0.02-4.00); Potassium 4.1 mmol/L (3.3-5.1); Triglycerides 98 mg/dL; Very Low Density Lipoprotein 20 mg/dL (5-40); Vitamin D,25 Hydroxy 27.2 ng/mL (30-100); cholesterol:hdl ratio screen 3.31
[2025-03-13 15:08] LABS: Lyme Scn Total Ab w/Rflx Positive (Negative)
== END | disposition home or self-care (01) ==
PROVIDERS: PCP Family Medicine; Referring Provider Family Medicine; Visit Provider Family Medicine
DX: L03.90 Cellulitis, unspecified (principal); Z12.5 Encounter for screening for malignant neoplasm of prostate; Z13.1 Encounter for screening for diabetes mellitus; Z13.220 Encounter for screening for lipoid disorders
CPT/HCPCS: 36415; 80048; 80061; 82306; 84153; 86618; G0103